=== PATIENT | female | born 1955 | race Caucasian/White ===

== ENCOUNTER → 2017-05-29 | Outpatient (CLI) | payer OTHER ==
[~2017-05-29] MED LIST: ATOR-14 PO; BUPR10DI TOP; CALCTAB5 PO; CHOL100027 PO; CYM60 PO; DULO1CAP40 PO; ESTR0.3T PO; HYDR-5688 PO; LPT10 PO; MIRT15TA PO; MULT-240 PO; NORT10CA4 PO; ONDA4TAB46 PO; PARO30TA PO; PARO40TA3 PO; PREG1CAP28 PO; PREG75CA PO; PRT/20 PO; TRAZ100T29 PO; [UNRECOGNIZED DRUG - CODE]
[2017-05-29 12:08] LABS: HEMATOCRIT 36.8 % (37-47); MEAN CELL VOLUME 106.1 fL (80-100); MEAN CORPUSCULAR HEMOGLOBIN 33.7 pg (25-34); MEAN CORPUSCULAR HGB CONC 31.8 g/dl (32-36); MEAN PLATELET VOLUME 9.5 fL (7.4-10.4); PLATELET COUNT 236 K/uL (130-400); RED BLOOD COUNT 3.47 M/uL (4.2-5.4); WHITE BLOOD COUNT 5.94 K/uL (4.8-10.8)
[2017-05-29 13:12] LABS: BLOOD UREA NITROGEN 7 mg/dl (7-18); BUN/CREATININE RATIO 8.6 (10-20); CALCIUM 8.9 mg/dl (8.5-10.1); CARBON DIOXIDE 31 mmol/L (21-32); CHLORIDE 106 mmol/L (98-107); CREATININE 0.87 mg/dl (0.60-1.20); GLUCOSE 87 mg/dl (70-99); POTASSIUM 3.8 mmol/L (3.5-5.1); SODIUM 142 mmol/L (136-145)
[2017-05-29 13:15] LABS: ALB/GLOB RATIO 1.1 (0.9-2); ALKALINE PHOSPHATASE 75 U/L (45-117); ALT/SGPT 20 U/L (12-78); AST/SGOT 20 U/L (15-37)
== END | disposition home or self-care (01) ==
LOC: C.LABPBG 09:52
PROVIDERS: ATTEND Internal Medicine
DX: D64.9 Anemia, unspecified (principal); R10.84 Generalized abdominal pain

== ENCOUNTER 2017-07-17 14:48 | Emergency (ER) | payer OTHER ==
[~2017-07-17] VITALS: Ht 162.6 cm; Wt 46.6 kg
[~2017-07-17 14:48] MED LIST changes: -BUPR10DI TOP; -CYM60 PO; -DULO1CAP40 PO; -HYDR-5688 PO; -LPT10 PO; -MULT-240 PO; -NORT10CA4 PO; -ONDA4TAB46 PO; -PREG1CAP28 PO; -TRAZ100T29 PO; -[UNRECOGNIZED DRUG - CODE]
[2017-07-17 14:56] VITALS: Ht 162.6 cm; Wt 46.6 kg
[2017-07-17] MEDS ORDERED: PREG1CAP28 PO (15:16)
[2017-07-17] MEDS ORDERED: BUPR10DI TOP (15:33)
[2017-07-17] MEDS ORDERED: LPT10 PO (15:33)
[2017-07-17] MEDS ORDERED: DULO1CAP40 PO (15:33)
[2017-07-17] MEDS ORDERED: TRAZ100T29 PO ×2 (15:33)
[2017-07-17] MEDS ORDERED: [UNRECOGNIZED DRUG - CODE] (15:33)
[2017-07-17] MEDS ORDERED: NORT10CA4 PO (15:33)
[2017-07-17] MEDS ORDERED: MULT-240 PO (15:33)
[2017-07-17] MEDS ORDERED: HYDR-5688 PO (15:33)
[2017-07-17] MEDS ORDERED: CYM60 PO (15:33)
--- NOTE | 2017-07-17 16:16 | EMERGENCY ROOM VISIT NOTE ---
History First contact with patient: 15:31 Chief Complaint: DIZZY Stated Complaint: ABDOMINAL PAIN Nursing Triage Summary: no change in dizziness with position change. Nausea is worse with movement. Has been going on for a day History of Present Illness The patient is a 61 year old female who presents to the Emergency Room with complaints of nausea and dizziness for since yesterday evening. The patient states that she felt very unsteady and was unable to walk down the hallway last night and could barely stand to brush her teeth today. She has had a decreased appetite "for a while" with decreased intake. She also vomited in bed 2 nights ago. She initially attributed these symptoms to her severe reflux for which she is taking Prilosec and Pepcid. She has a history of multiple abdominal surgeries including colectomy 2/2 ischemic bowel, appendectomy, and hysterectomy. The patient denies vertigo like symptoms stating she was more lightheaded. The patient also states that she is having a headache and hot flashes. The patient has been prescribed Vicodin for her chronic abdominal pain and last month had her dosage cut in half, but she states she has been taking them as prescribed and not missed any doses. The patient also had sharp chest pain yesterday lasting a minute that was different that her reflux pain, but has also been having intermittent chest pain for the last 6 months. She also has been having burning on urination as well. Review of Systems See HPI for pertinent positives and negatives. A total of ten systems were reviewed and were otherwise negative. Past Medical/Surgical History Medical Problems: (1) Gastroparesis (2) Ischemic colitis Surgical Problems: (1) H/O left hemicolectomy (2) History of partial colectomy Family History No significant family history Social History Smoking Status: Former Smoker Marital Status: Housing Status: lives with family Current/Historical Medications Scheduled Atorvastatin (Atorvastatin Calcium), 10 MG PO HS Buprenorphine (Buprenorphine), 10 MCG TOP WK Duloxetine HCl (Duloxetine HCl), 120 MG PO QAM Duloxetine HCl (Duloxetine HCl), 60 MG PO HS Multiple Vitamins W/ Minerals (Womens One Daily), 1 TAB PO DAILY Nortriptyline HCl (Nortriptyline HCl), 10 MG PO HS Pregabalin (Lyrica), 150 MG PO AMHS Trazodone Hcl (Trazodone), 100 MG PO HS Trazodone Hcl (Trazodone), 50 MG PO AFTER SUPPER Scheduled PRN Hydrocodone/Acetaminophen 5MG/325MG ([place] 5MG/325MG), 0.5 TABLET PO Q4H PRN for Pain Miscellaneous Medications Duloxetine HCl (Bulk) (Duloxetine HCl) Physical Exam Vital Signs Date Time Temp Pulse Resp B/P (MAP) Pulse Ox O2 Delivery O2 Flow Rate FiO2 07/17/17 17:30 72 20 120/66 99 Room Air 07/17/17 16:38 36.7 103 20 117/80 99 Room Air 07/17/17 16:30 95 20 137/90 97 121/80 103 117/80 07/17/17 14:56 36.7 92 20 128/85 99 Room Air Physical Exam GENERAL: Awake, alert, well-appearing, in mild distress HENT: Normocephalic, atraumatic. Mouth appears to be dry. EYES: Normal conjunctiva. Sclera non-icteric. NECK: Supple. No nuchal rigidity. FROM. No JVD. RESPIRATORY: Clear to auscultation. CARDIAC: Regular rate, normal rhythm. Extremities warm and well perfused. Pulses equal. ABDOMEN: Soft, non-distended. Suprapubic tenderness to palpation. No rebound or guarding. No masses. RECTAL: Deferred. MUSCULOSKELETAL: Chest examination reveals no tenderness. The back is symmetrical on inspection without obvious abnormality. There is no CVA tenderness to palpation. No joint edema. LOWER EXTREMITIES: Calves are equal size bilaterally and non-tender. No edema. No discoloration. NEURO: Depressed affect. No sensory or motor deficits noted. SKIN: No rash or jaundice noted. Medical Decision & Procedures Laboratory Results 07/17/17 16:21 Red Blood Count 3.44, Mean Corpuscular Volume 99.7, Mean Corpuscular Hemoglobin 34.0, Mean Corpuscular Hemoglobin Concent 34.1, Mean Platelet Volume 9.1, Neutrophils (%) (Auto) 74.4, Lymphocytes (%) (Auto) 20.7, Monocytes (%) (Auto) 4.1, Eosinophils (%) (Auto) 0.0, Basophils (%) (Auto) 0.4, Neutrophils # (Auto) 4.14, Lymphocytes # (Auto) 1.15, Monocytes # (Auto) 0.23, Eosinophils # (Auto) 0.00, Basophils # (Auto) 0.02 07/17/17 16:21 Test 07/17/17 16:00 07/17/17 16:21 07/17/17 17:45 07/17/17 19:15 Urine Color YELLOW Urine Appearance TURBID (CLEAR) Urine pH 8.5 (4.5-7.5) Urine Specific [place] 1.020 (1.000-1.030) Urine Protein NEG (NEG) Urine Glucose (UA) NEG (NEG) Urine Ketones NEG (NEG) Urine Occult Blood NEG (NEG) Urine Nitrite NEG (NEG) Urine Bilirubin NEG (NEG) Urine Urobilinogen NEG (NEG) Urine Leukocyte Esterase TRACE (NEG) Urine WBC (Auto) 1-5 /hpf (0-5) Urine RBC (Auto) 0-4 /hpf (0-4) Urine Hyaline Casts (Auto) 0 /lpf (0-5) Urine Epithelial Cells (Auto) 5-10 /lpf (0-5) Urine Bacteria (Auto) NEG (NEG) White Blood Count 5.56 K/uL (4.8-10.8) Red Blood Count 3.44 M/uL (4.2-5.4) Hemoglobin 11.7 g/dL (12.0-16.0) Hematocrit 34.3 % (37-47) Mean Corpuscular Volume 99.7 fL (80-100) Mean Corpuscular Hemoglobin 34.0 pg (25-34) Mean Corpuscular Hemoglobin Concent 34.1 g/dl (32-36) Platelet Count 204 K/uL (130-400) Mean Platelet Volume 9.1 fL (7.4-10.4) Neutrophils (%) (Auto) 74.4 % Lymphocytes (%) (Auto) 20.7 % Monocytes (%) (Auto) 4.1 % Eosinophils (%) (Auto) 0.0 % Basophils (%) (Auto) 0.4 % Neutrophils # (Auto) 4.14 K/uL (1.4-6.5) Lymphocytes # (Auto) 1.15 K/uL (1.2-3.4) Monocytes # (Auto) 0.23 K/uL (0.11-0.59) Eosinophils # (Auto) 0.00 K/uL (0-0.5) Basophils # (Auto) 0.02 K/uL (0-0.2) RDW Standard Deviation 41.4 fL (36.4-46.3) RDW Coefficient of Variation 11.6 % (11.5-14.5) Immature Granulocyte % (Auto) 0.4 % Immature Granulocyte # (Auto) 0.02 K/uL (0.00-0.02) Anion Gap 9.0 mmol/L (3-11) Est Creatinine Clear Calc Drug Dose 68.8 ml/min Estimated GFR () 112.4 Estimated GFR (Non- 97.0 BUN/Creatinine Ratio 14.2 (10-20) Calcium Level 9.2 mg/dl (8.5-10.1) Total Bilirubin 0.4 mg/dl (0.2-1) Aspartate Amino Transf (AST/SGOT) 15 U/L (15-37) Alanine Aminotransferase (ALT/SGPT) 12 U/L (12-78) Alkaline Phosphatase 71 U/L (45-117) Total Protein 6.7 gm/dl (6.4-8.2) Albumin 3.6 gm/dl (3.4-5.0) Globulin 3.1 gm/dl (2.5-4.0) Albumin/Globulin Ratio 1.2 (0.9-2) Lyme Disease IgG Antibody NEG (NEG) Lyme Disease IgM Antibody NEG (NEG) Prothrombin Time 10.8 SECONDS (9.0-12.0) Prothromb Time International Ratio 1.0 (0.9-1.1) Activated Partial Thromboplast Time 28.1 SECONDS (21.0-31.0) Partial Thromboplastin Ratio 1.1 D-Dimer 330 ug/L FEU (0-500) Bedside Troponin I < 0.030 ng/ml (0-0.045) Medications Administered Medications (Trade) Dose Ordered Sig/Dereck Route Start Time Stop Time Status Last Admin Dose Admin Sodium Chloride 500 ml @ 999 mls/hr Q31M STAT IV 07/17/17 16:19 07/17/17 16:49 DC 07/17/17 16:38 999 MLS/HR Ondansetron HCl (Zofran Inj) 4 mg NOW STAT IV 07/17/17 16:19 07/17/17 16:22 DC 07/17/17 16:38 4 MG Sodium Chloride 500 ml @ 999 mls/hr Q31M IV 07/17/17 17:00 08/16/17 16:59 07/17/17 17:00 999 MLS/HR ED Course Patient examined at bedside and provided very broad history including burning on urination, nausea, vomiting, chest pain, dizziness, and hot flashes Medications: Zofran 4mg IV, 1L NS Bolus Labs: CBC, CMP, Troponin, EKG, Urinalysis, D-Dimer - Patient states nausea has slightly improved with Zofran - Lab work shows no significant abnormalities - Troponin initial and repeat negative - EKG shows NSR with no ST changes - Lyme negative - Discussed negative labwork and patient agreeable with discharge home with Zofran and follow up with PCP Medical Decision Patient is a 61 year old female that presents with a 1 day history of nausea and dizziness Etiologies such as benign positional vertigo, tumor, infection, hypoglycemia, electrolyte abnormalities, cardiac sources, intracerebral event, toxicologic, neurologic, as well as others were entertained. [place] Drug Monitoring Program Search Results: patient reviewed within database Impression Primary Impression: Nausea Additional Impression: History of partial colectomy Departure Information Dispostion Home / Self-Care Condition GOOD Prescriptions Ondansetron Hcl (ZOFRAN) 4 Mg Tab 4 MG PO Q8H Y for Nausea for 4 Days, #12 TAB Prov: Henry King MD 07/17/17 Referrals Sonja Conroy M.D. (PCP) Patient Instructions My [facility] Additional Instructions Zofran Tablets 4mg: Take one every eight hours as needed for nausea. Avoid alcohol, operating machinery or dangerous equipment, working on ladders or roofs , DRIVING, or situations where being under the influence may be dangerous. Rest and drink plenty of fluids as tolerated. Slow sips of water or sports drinks are recommended instead of large amounts all at once. Continue current medications. Once your stomach is settled start with a clear liquid diet (jello, soup broth, etc.) and then advance as tolerated. You should avoid full, heavy meals for about 24 hrs from the time your symptoms resolved. Return to the ER immediately for worsening or persistent abdominal pain, vomiting, fevers, chest pains, difficulty breathing, black or bloody stools, worsening of your condition, or as needed. Follow up with your primary physician in 2-3 days for a recheck of your current condition. Resident Tracking Resident Involvement: Resident Care Provided Care Provided: Adult ED Resident Tracking Resident Involvement: Resident Care Provided Care Provided: Adult ED Problem Qualifiers
[2017-07-17] MEDS ORDERED: ONDANSETRON INJ 2 MG/ML 2 ML VIAL IV STA (16:19)
[2017-07-17] MEDS ORDERED: SODIUM CHLORIDE 0.9% 500ML 500 ML IV STA (16:19)
[2017-07-17] MEDS ORDERED: MECLIZINE HCL 25 MG TAB PO STA (16:19)
[2017-07-17 16:36] LABS: BASO % 0.4 %; BASO ABS # 0.02 K/uL (0-0.2); COMPLETE YES; HEMATOCRIT 34.3 % (37-47); IG% 0.4 %; LYMPH % 20.7 %; LYMPH ABS # 1.15 K/uL (1.2-3.4); MEAN CELL VOLUME 99.7 fL (80-100); MEAN CORPUSCULAR HGB CONC 34.1 g/dl (32-36); MEAN PLATELET VOLUME 9.1 fL (7.4-10.4); MONO % 4.1 %; NEUT % 74.4 %; PLATELET COUNT 204 K/uL (130-400); RED BLOOD COUNT 3.44 M/uL (4.2-5.4); WHITE BLOOD COUNT 5.56 K/uL (4.8-10.8)
[2017-07-17 16:38] VITALS: TEMP 36.7
[2017-07-17 16:51] LABS: URINE APPEARANCE TURBID (CLEAR); URINE BILIRUBIN NEG (NEG); URINE COLOR YELLOW; URINE NITRITE NEG (NEG); URINE PH 8.5 (4.5-7.5); UROBILINOGEN NEG (NEG)
[2017-07-17 16:52] LABS: MANUAL MICROSCOPIC REQUIRED? NO; REVIEW REQ? NO
[2017-07-17 16:53] LABS: BUN/CREATININE RATIO 14.2 (10-20); CALCIUM 9.2 mg/dl (8.5-10.1); CREATININE 0.64 mg/dl (0.60-1.20); POTASSIUM 3.6 mmol/L (3.5-5.1)
[2017-07-17 16:56] LABS: ALB/GLOB RATIO 1.2 (0.9-2)
[2017-07-17] MEDS: SODIUM CHLORIDE 0.9% 500ML 500 ML IV SCH ×2 (17:00→20:02)
[2017-07-17 18:08] LABS: PARTIAL THROMBOPLASTIN RATIO 1.1; PROTHROMBIN TIME (PATIENT) 10.8 SECONDS (9.0-12.0)
--- NOTE | 2017-07-17 19:03 | DIAGNOSTIC IMAGING REPORT ---
CHEST 2 VIEWS ROUTINE CLINICAL HISTORY: Shortness of breath. Possible pneumonia COMPARISON STUDY: 09/07/2014 FINDINGS: There is hyperinflation. There is no focal pulmonary consolidation. There are no pleural effusions. There is no failure.[ IMPRESSION: Hyperinflation. No acute findings. Electronically signed by: Xavier Estevez M.D. 07/17/2017 7:02 PM Dictated Date/Time: 07/17/2017 7:01 PM
[2017-07-17 20:11] LABS: LYME DISEASE AB IGM NEG (NEG)
[2017-07-17 20:12] LABS: LYME DISEASE AB IGG NEG (NEG)
[2017-07-17] MEDS ORDERED: ONDA4TAB46 PO (20:23)
[2017-07-17] MEDS ORDERED: ONDANSETRON HOME PACK 4MG OD TAB ONE (20:52)
[2017-07-17 21:00] VITALS: BP 122/78; PULSE 70; O2SAT 98
--- NOTE | 2017-07-17 22:15 | EMERGENCY ROOM VISIT NOTE ---
History Report prepared by Timmy: Camilo Briggs Under the Supervision of: Dr. Justo Evangelista M.D. First contact with patient: 15:31 Chief Complaint: DIZZY Stated Complaint: ABDOMINAL PAIN Nursing Triage Summary: no change in dizziness with position change. Nausea is worse with movement. Has been going on for a day History of Present Illness The patient is a 61 year old female who presents to the Emergency Room with complaints of constant dizziness and nausea beginning yesterday. She currently rates her discomfort an 8/10 in severity and standing intensifies her symptoms. The patient states she experienced an episode of vomiting two days ago, and she believed it was her GERD. She reports she has not vomited since, and she was short of breath for a short period after. She otherwise has had no shortness of breath. The patient states over the past two days, she has only eaten a little macaroni and cheese. She ate nothing today. She reports this morning, she developed mild pain with urination, periumbilical abdominal pain, and chills throughout. She does have chronic abdominal pain from adhesions from her multiple surgeries. The patient notes she has been experiencing occasional chest pain for the past six months, and she had another episode this morning. She describes it as very brief and sharp in nature with no associated symptoms. She reports she currently has a headache, but she occasionally gets them from her neck and back problems. The patient reports a history of chronic abdominal pain, appendectomy, hysterectomy, GERD, and depression. She denies vertigo, black stool, blood in stool, leg pain, and leg edema. Source of History: patient Onset: yesterday Position: other (global) Symptom Intensity: 8/10 Quality: other (dizziness and nausea) Timing: constant Modifying Factors (Worsening): other (standing) Associated Symptoms: + chest pain, + SOB (resolved), + vomiting, + abdominal pain (periumbilical), No melena, No hematochezia Note: Associated symptoms: mild dysuria Denies: vertigo, leg pain, leg edema Review of Systems See HPI for pertinent positives & negatives. A total of 10 systems reviewed and were otherwise negative. Past Medical & Surgical Medical Problems: (1) Gastroparesis (2) Ischemic colitis Surgical Problems: (1) H/O left hemicolectomy (2) History of partial colectomy Family History No significant family history Social History Smoking Status: Former Smoker Marital Status: Housing Status: lives with family Current/Historical Medications Scheduled Atorvastatin (Atorvastatin Calcium), 10 MG PO HS Buprenorphine (Buprenorphine), 10 MCG TOP WK Duloxetine HCl (Duloxetine HCl), 120 MG PO QAM Duloxetine HCl (Duloxetine HCl), 60 MG PO HS Multiple Vitamins W/ Minerals (Womens One Daily), 1 TAB PO DAILY Nortriptyline HCl (Nortriptyline HCl), 10 MG PO HS Pregabalin (Lyrica), 150 MG PO AMHS Trazodone Hcl (Trazodone), 100 MG PO HS Trazodone Hcl (Trazodone), 50 MG PO AFTER SUPPER Scheduled PRN Hydrocodone/Acetaminophen 5MG/325MG ([place] 5MG/325MG), 0.5 TABLET PO Q4H PRN for Pain Ondansetron Hcl (Zofran), 4 MG PO Q8H PRN for Nausea Miscellaneous Medications Duloxetine HCl (Bulk) (Duloxetine HCl) Allergies Coded Allergies: Sulfa Drugs (Verified Allergy, Mild, RASH, 09/12/13) Citalopram (Verified Adverse Reaction, Unknown, rash, 07/17/17) Physical Exam Vital Signs Date Time Temp Pulse Resp B/P (MAP) Pulse Ox O2 Delivery O2 Flow Rate FiO2 07/17/17 21:00 70 18 122/78 98 07/17/17 20:30 68 18 116/67 99 Room Air 07/17/17 19:30 76 20 122/70 99 Room Air 07/17/17 18:30 68 18 116/76 99 Room Air 07/17/17 17:30 72 20 120/66 99 Room Air 07/17/17 16:38 36.7 103 20 117/80 99 Room Air 07/17/17 16:30 95 20 137/90 97 121/80 103 117/80 07/17/17 14:56 36.7 92 20 128/85 99 Room Air Physical Exam Constitutional: Vital signs reviewed. Eyes: Pupils are equal round reactive to light. Conjunctiva are noninjected. ENT: Pharynx is clear without erythema or exudate. Mucous membranes are dry. Neck supple without meningeal signs. Respiratory: Clear to auscultation bilaterally. Breath sounds are equal bilaterally. Cardiovascular: Regular rate and rhythm. No rubs or gallops. GI: Soft, nondistended and mild lower abdominal tenderness. No guarding. Bowel sounds are present. Musculoskeletal: No peripheral edema. No lower extremity tenderness. Integumentary: No cyanosis. Neurologic: The patient is awake and alert. Cranial nerves II-XII are intact. Motor is 5 out of 5 all extremities. Sensation is intact to light touch all extremities. Normal speech. Psychiatric: Normal affect. Medical Decision & Procedures ER Provider Diagnostic Interpretation: X-ray results as stated below per interpretation by me and the radiologist: CHEST 2 VIEWS ROUTINE CLINICAL HISTORY: Shortness of breath. Possible pneumonia COMPARISON STUDY: 09/07/2014 FINDINGS: There is hyperinflation. There is no focal pulmonary consolidation. There are no pleural effusions. There is no failure.[ IMPRESSION: Hyperinflation. No acute findings. Electronically signed by: Xavier Estevez M.D. 07/17/2017 7:02 PM Dictated Date/Time: 07/17/2017 7:01 PM Laboratory Results 07/17/17 16:21 Red Blood Count 3.44, Mean Corpuscular Volume 99.7, Mean Corpuscular Hemoglobin 34.0, Mean Corpuscular Hemoglobin Concent 34.1, Mean Platelet Volume 9.1, Neutrophils (%) (Auto) 74.4, Lymphocytes (%) (Auto) 20.7, Monocytes (%) (Auto) 4.1, Eosinophils (%) (Auto) 0.0, Basophils (%) (Auto) 0.4, Neutrophils # (Auto) 4.14, Lymphocytes # (Auto) 1.15, Monocytes # (Auto) 0.23, Eosinophils # (Auto) 0.00, Basophils # (Auto) 0.02 07/17/17 16:21 Test 07/17/17 16:00 07/17/17 16:21 07/17/17 17:45 07/17/17 19:15 Urine Color YELLOW Urine Appearance TURBID (CLEAR) Urine pH 8.5 (4.5-7.5) Urine Specific [place] 1.020 (1.000-1.030) Urine Protein NEG (NEG) Urine Glucose (UA) NEG (NEG) Urine Ketones NEG (NEG) Urine Occult Blood NEG (NEG) Urine Nitrite NEG (NEG) Urine Bilirubin NEG (NEG) Urine Urobilinogen NEG (NEG) Urine Leukocyte Esterase TRACE (NEG) Urine WBC (Auto) 1-5 /hpf (0-5) Urine RBC (Auto) 0-4 /hpf (0-4) Urine Hyaline Casts (Auto) 0 /lpf (0-5) Urine Epithelial Cells (Auto) 5-10 /lpf (0-5) Urine Bacteria (Auto) NEG (NEG) White Blood Count 5.56 K/uL (4.8-10.8) Red Blood Count 3.44 M/uL (4.2-5.4) Hemoglobin 11.7 g/dL (12.0-16.0) Hematocrit 34.3 % (37-47) Mean Corpuscular Volume 99.7 fL (80-100) Mean Corpuscular Hemoglobin 34.0 pg (25-34) Mean Corpuscular Hemoglobin Concent 34.1 g/dl (32-36) Platelet Count 204 K/uL (130-400) Mean Platelet Volume 9.1 fL (7.4-10.4) Neutrophils (%) (Auto) 74.4 % Lymphocytes (%) (Auto) 20.7 % Monocytes (%) (Auto) 4.1 % Eosinophils (%) (Auto) 0.0 % Basophils (%) (Auto) 0.4 % Neutrophils # (Auto) 4.14 K/uL (1.4-6.5) Lymphocytes # (Auto) 1.15 K/uL (1.2-3.4) Monocytes # (Auto) 0.23 K/uL (0.11-0.59) Eosinophils # (Auto) 0.00 K/uL (0-0.5) Basophils # (Auto) 0.02 K/uL (0-0.2) RDW Standard Deviation 41.4 fL (36.4-46.3) RDW Coefficient of Variation 11.6 % (11.5-14.5) Immature Granulocyte % (Auto) 0.4 % Immature Granulocyte # (Auto) 0.02 K/uL (0.00-0.02) Anion Gap 9.0 mmol/L (3-11) Est Creatinine Clear Calc Drug Dose 68.8 ml/min Estimated GFR () 112.4 Estimated GFR (Non- 97.0 BUN/Creatinine Ratio 14.2 (10-20) Calcium Level 9.2 mg/dl (8.5-10.1) Total Bilirubin 0.4 mg/dl (0.2-1) Aspartate Amino Transf (AST/SGOT) 15 U/L (15-37) Alanine Aminotransferase (ALT/SGPT) 12 U/L (12-78) Alkaline Phosphatase 71 U/L (45-117) Total Protein 6.7 gm/dl (6.4-8.2) Albumin 3.6 gm/dl (3.4-5.0) Globulin 3.1 gm/dl (2.5-4.0) Albumin/Globulin Ratio 1.2 (0.9-2) Lyme Disease IgG Antibody NEG (NEG) Lyme Disease IgM Antibody NEG (NEG) Prothrombin Time 10.8 SECONDS (9.0-12.0) Prothromb Time International Ratio 1.0 (0.9-1.1) Activated Partial Thromboplast Time 28.1 SECONDS (21.0-31.0) Partial Thromboplastin Ratio 1.1 D-Dimer 330 ug/L FEU (0-500) Bedside Troponin I < 0.030 ng/ml (0-0.045) Laboratory results as reviewed by me. Medications Administered Medications (Trade) Dose Ordered Sig/Dereck Route Start Time Stop Time Status Last Admin Dose Admin Sodium Chloride 500 ml @ 999 mls/hr Q31M STAT IV 07/17/17 16:19 07/17/17 16:49 DC 07/17/17 16:38 999 MLS/HR Ondansetron HCl (Zofran Inj) 4 mg NOW STAT IV 07/17/17 16:19 07/17/17 16:22 DC 07/17/17 16:38 4 MG Sodium Chloride 500 ml @ 999 mls/hr Q31M IV 07/17/17 17:00 07/17/17 21:34 DC 07/17/17 17:00 999 MLS/HR Ondansetron HCl (ZOFRAN ODT 4MG Home Pack) 1 homepack STK-MED ONCE .ROUTE 07/17/17 20:52 07/17/17 20:53 DC 07/17/17 20:54 1 HOMEPACK ECG Indication: nausea Rate (beats per minute): 88 Rhythm: normal sinus Findings: no acute ischemic change, no ectopy ED Course 1534: The patient was evaluated in room B12B by the resident under my supervision. A complete history and physical exam was performed. 1619: Ordered Meclizine HCl 25mg PO, Ondansetron HCl 4mg IV, Sodium Chloride 500 ml @ 999 mls/hr IV. 1901: The patient's initial troponin is 0.00, another is being drawn. I discussed the patient's current test results with her. 2051: Ordered Ondansetron HCl 1 homepack .ROUTE 2052: Upon reevaluation, the patient appeared to have improvement of her symptoms. I discussed tonight's findings with her. She verbalized agreement of the treatment plan. The patient was discharged home. Medical Decision This is a 61-year-old female presents with lightheadedness. Differential diagnosis includes dehydration, malnutrition, anemia, infection, UTI, cardiac. I did perform a limited focused review of portions of the patient's old chart on the electronic medical record. The patient has had no recent pertinent visits to this hospital. I did evaluate the patient as noted above. The patient is presenting with generalized symptoms including increased fatigue over the past 2 months. She has been lightheaded for the past 2 days but states that she has barely been eating or drinking very much over the past 2 days. She did have one episode of vomiting. She does have chronic abdominal pain which is unchanged other than having some suprapubic pain. She also complains of dysuria as well as a fleeting episode of chest pain. She has had intermittent chest pain for several months which has never been mentioned to her doctor. Currently she is not having any chest pain. Her main complaint today is just feeling lightheaded. She is not short of breath. IV access was established. The patient was placed on a continuous groundwater monitoring technician. I did order and personally review the patient's 12-lead EKG and chest x-ray as described above. I did order and review the patient's blood work as noted in the electronic medical record. She is anemic but her hemoglobin is stable. Troponin 2 is negative. D-dimer is negative. Lyme testing is negative. I did order a urinalysis which does not show signs of infection. The patient was treated with IV fluids here. The cause of her symptoms is unclear at this time. She was advised follow very closely with her doctor for further evaluation. She does have an appointment in 2 weeks but was told that she should call for an earlier appointment. She was discharged in good condition. Resident Physician Supervision Note: I did evaluate and examine this patient myself. I did guide management for the patient. I agree with the resident's (Dr. King) assessment as discussed. Please see the resident's dictation for further details. Medication Reconcilliation Current Medication List: was personally reviewed by me Blood Pressure Screening Patient's blood pressure: Elevated blood pressure Blood pressure disposition: Referred to PCP Impression Primary Impression: Generalized weakness Additional Impressions: Chronic chest pain Chronic generalized abdominal pain Dehydration Anemia Scribe Attestation The scribe's documentation has been prepared under my direct and personally reviewed by me in its entirety. I confirm that the note above accurately reflects all work, treatment, procedures, and medical decision making performed by me. Departure Information Dispostion Home / Self-Care Prescriptions Ondansetron Hcl (ZOFRAN) 4 Mg Tab 4 MG PO Q8H Y for Nausea for 4 Days, #12 TAB Prov: Henry King MD 07/17/17 Referrals Sonja Conroy M.D. (PCP) Forms HOME CARE DOCUMENTATION FORM, IMPORTANT VISIT INFORMATION Patient Instructions My [facility] Additional Instructions Zofran Tablets 4mg: Take one every eight hours as needed for nausea. Avoid alcohol, operating machinery or dangerous equipment, working on ladders or roofs , DRIVING, or situations where being under the influence may be dangerous. Rest and drink plenty of fluids as tolerated. Slow sips of water or sports drinks are recommended instead of large amounts all at once. Continue current medications. Once your stomach is settled start with a clear liquid diet (jello, soup broth, etc.) and then advance as tolerated. You should avoid full, heavy meals for about 24 hrs from the time your symptoms resolved. Return to the ER immediately for worsening or persistent abdominal pain, vomiting, fevers, chest pains, difficulty breathing, black or bloody stools, worsening of your condition, or as needed. Follow up with your primary physician in 2-3 days for a recheck of your current condition. Problem Qualifiers Additional Impressions: Anemia Anemia type: unspecified type Qualified Codes: D64.9 - Anemia, unspecified
== END 2017-07-17 21:00 | disposition home or self-care (01) ==
LOC: EDBD 14:48 → C.EDB 14:50
DX: R11.0 Nausea (principal); Z90.49 Acquired absence of other specified parts of digestive tract; K21.9 Gastro-esophageal reflux disease without esophagitis; R10.9 Unspecified abdominal pain; G89.29 Other chronic pain; K31.84 Gastroparesis; Z87.891 Personal history of nicotine dependence

== ENCOUNTER 2017-08-05 22:20 | Inpatient (IN) | payer OTHER ==
[~2017-08-05] VITALS: Ht 162.6 cm; Wt 45.2 kg
[~2017-08-05 22:20] MED LIST changes: -ATOR-14 PO; +BUPR10DI TOP; -CALCTAB5 PO; -CHOL100027 PO; +CYM60 PO; +DULO1CAP40 PO; -ESTR0.3T PO; +HYDR-5688 PO; +LPT10 PO; -MIRT15TA PO; +MULT-240 PO; +NORT10CA4 PO; -PARO30TA PO; -PARO40TA3 PO; +PREG1CAP28 PO; -PREG75CA PO; -PRT/20 PO; +TRAZ100T29 PO; +[UNRECOGNIZED DRUG - CODE]
[2017-08-05] MEDS ORDERED: ONDANSETRON INJ 2 MG/ML 2 ML VIAL IV STA (22:45)
[2017-08-05] MEDS ORDERED: SODIUM CHLORIDE 0.9% 1000ML 1,000 ML IV STA (22:45)
[2017-08-05] MEDS ORDERED: SODIUM CHLORIDE 0.9% 1000ML 1,000 ML IV ONE (22:45)
[2017-08-05] MEDS ORDERED: MoRPHine SULFATE 4 MG/ML 1 ML CARP\\VIAL IV STA ×2 (22:45→23:07)
[2017-08-05] MEDS ORDERED: OPTIRAY 320 IV PRN (23:00)
[2017-08-05 23:08] LABS: BASO % 0.2 %; BASO ABS # 0.03 K/uL (0-0.2); COMPLETE YES; EOS % 0.3 %; HEMATOCRIT 40.7 % (37-47); IG% 0.2 %; LYMPH % 10.4 %; MEAN CELL VOLUME 98.8 fL (80-100); MEAN CORPUSCULAR HEMOGLOBIN 31.8 pg (25-34); MEAN CORPUSCULAR HGB CONC 32.2 g/dl (32-36); MEAN PLATELET VOLUME 9.4 fL (7.4-10.4); NEUT % 82.9 %; PLATELET COUNT 295 K/uL (130-400); RED BLOOD COUNT 4.12 M/uL (4.2-5.4); WHITE BLOOD COUNT 12.54 K/uL (4.8-10.8)
[2017-08-05 23:17] LABS: ISTAT CREATININE 0.8 mg/dl (0.6-1.3); ISTAT HEMOGLOBIN 14.6 g/dl (12.0-16.0); ISTAT IONIZED CALCIUM 1.13 mmol/l (1.12-1.32)
[2017-08-05] MEDS ORDERED: DOCU-94 PO (23:27)
[2017-08-05] MEDS ORDERED: ONDA4TAB9 PO (23:27)
[2017-08-05 23:29] LABS: ALT/SGPT 13 U/L (12-78); AST/SGOT 13 U/L (15-37); BLOOD UREA NITROGEN 13 mg/dl (7-18); CALCIUM 9.2 mg/dl (8.5-10.1); CARBON DIOXIDE 26 mmol/L (21-32); CHLORIDE 102 mmol/L (98-107); CREATININE 0.82 mg/dl (0.60-1.20); GLUCOSE 124 mg/dl (70-99); POTASSIUM 3.8 mmol/L (3.5-5.1); SODIUM 140 mmol/L (136-145)
[2017-08-05 23:30] LABS: ALKALINE PHOSPHATASE 81 U/L (45-117)
[2017-08-06] VITALS (14 sets, daily range): BP systolic 111–134; BP diastolic 71–86; PULSE 92–108; TEMP 36.7–37.7; O2SAT 97–100; Ht 162.6 cm; Wt 45.2 kg
[2017-08-06 00:36] LABS: URINE APPEARANCE CLEAR (CLEAR); URINE BILIRUBIN NEG (NEG); URINE COLOR YELLOW; URINE NITRITE NEG (NEG); URINE PH 5.5 (4.5-7.5); URINE SPECIFIC GRAVITY > 1.045 (1.000-1.030); UROBILINOGEN NEG (NEG)
[2017-08-06 00:39] LABS: MANUAL MICROSCOPIC REQUIRED? NO; REVIEW REQ? NO
[2017-08-06] MEDS ORDERED: MoRPHine SULFATE 4 MG/ML 1 ML CARP\\VIAL IV STA (00:44)
[2017-08-06] MEDS ORDERED: HYDROmorphone INJ 1 MG/ML SYR IV PRN ×2 (01:30→07:15)
[2017-08-06] MEDS ORDERED: HYDROmorphone INJ 0.5 MG/0.5 ML SYR IV PRN (01:30)
[2017-08-06] MEDS ORDERED: ONDANSETRON INJ 2 MG/ML 2 ML VIAL IV PRN ×2 (01:30→07:15)
[2017-08-06] MEDS ORDERED: PROMETHAZINE HCL INJ 25 MG in SODIUM CHLORIDE 0.9% 50ML 50 ML IV PRN (01:30)
[2017-08-06] MEDS ORDERED: LORAZEPAM INJ 0.5 MG in SYRINGE 0.25 ML IV PRN (01:45)
--- NOTE | 2017-08-06 02:32 | EMERGENCY ROOM VISIT NOTE ---
History Report prepared by Timmy: Chuyita Clark Under the Supervision of: Dr. Joey Randolph M.D. First contact with patient: 22:39 Chief Complaint: CHEST PAIN Stated Complaint: SEVERE ABD/CHEST PAIN,SWEATING/CHILLS History of Present Illness The patient is a 61 year old female who presents to the Emergency Room with complaints of worsening abdominal pain starting yesterday morning. The patient states that the pain is under her ribs and moves to her sides. She reports that it is worse on the left side and that her abdomen seems swollen. She notes that she has had this before, but doesn't remember why. She denies taking any pain medications for the past 8 hours. The patient complains of constipation, lack of appetite, diaphoresis, and chills. The patient denies hematochezia, melena, and a fever. She notes that she was here recently for dizziness. She states that she also just had colonoscopy in May and that has had a colon resection. Source of History: patient Onset: yesterday morning Position: abdomen Quality: other (swollen) Timing: worsening Associated Symptoms: + chills, + diaphoresis, No fevers, No melena, No hematochezia Note: The patient complains of constipation and lack of appetite. Review of Systems See HPI for pertinent positives & negatives. A total of 10 systems reviewed and were otherwise negative. Past Medical & Surgical Medical Problems: (1) Bowel obstruction (2) Gastroparesis (3) Ischemic colitis Surgical Problems: (1) H/O left hemicolectomy (2) History of partial colectomy (3) S/P colon resection Old medical records were reviewed. Nurse's notes were reviewed and I agree with. Family History No significant family history Social History Smoking Status: Never Smoker Drug Use: none Marital Status: Housing Status: lives with family Current/Historical Medications Scheduled Atorvastatin (Atorvastatin Calcium), 10 MG PO HS Buprenorphine (Buprenorphine), 10 MCG TOP WK Duloxetine HCl (Duloxetine HCl), 120 MG PO QAM Duloxetine HCl (Duloxetine HCl), 60 MG PO HS Multiple Vitamins W/ Minerals (Womens One Daily), 1 TAB PO DAILY Nortriptyline HCl (Nortriptyline HCl), 10 MG PO HS Pregabalin (Lyrica), 150 MG PO AMHS Trazodone Hcl (Trazodone), 100 MG PO HS Trazodone Hcl (Trazodone), 50 MG PO AFTER SUPPER Scheduled PRN Docusate Sodium (Colace), 1 CAP PO QID PRN for Constipation Hydrocodone/Acetaminophen 5MG/325MG ([place] 5MG/325MG), 0.5 TABLET PO Q4H PRN for Pain Ondansetron (Ondansetron HCl), 4 MG PO Q8 PRN for Nausea or Vomiting Allergies Coded Allergies: Sulfa Drugs (Verified Allergy, Mild, RASH, 08/05/17) Citalopram (Verified Adverse Reaction, Unknown, rash, 08/05/17) Physical Exam Vital Signs Date Time Temp Pulse Resp B/P (MAP) Pulse Ox O2 Delivery O2 Flow Rate FiO2 08/06/17 02:07 94 16 117/83 97 Room Air 08/06/17 01:06 90 18 117/83 99 Room Air 08/05/17 23:28 93 16 127/81 100 08/05/17 22:58 100 Ambu-Bag 08/05/17 22:53 93 08/05/17 22:24 36.5 105 24 125/82 96 Room Air Physical Exam General: Non-ill appearing middle aged female writhing in pain from abdominal pain. HEENT: Normal cephalic atraumatic. Pupils are equal round and reactive to light. Sclerae anicteric. Extraocular movements are intact. Oropharynx is pink with moist mucous membranes. No swelling of the mouth lips or tongue. Neck: Supple with a midline trachea. No meningeal signs or stiffness, no JVD or bruits. No Stridor. Chest: Clear to auscultation bilaterally. No wheezes or rhonchi. No increased work of breathing. Heart: regular rate and rhythm. Abdomen: Soft nontender, mildly distended without rebound guarding or rigidity. No peritonitis. Extremities: No cyanosis clubbing or edema. No calf tenderness or assymetry Spine/Back. Non tender to palpation. No CVA tenderness Skin: Good turgor without rashes. Neurologic exam: Cranial nerves two through 12 are intact. Motor and sensation are intact and symmetrical throughout. Medical Decision & Procedures Laboratory Results 08/05/17 22:40 Red Blood Count 4.12, Mean Corpuscular Volume 98.8, Mean Corpuscular Hemoglobin 31.8, Mean Corpuscular Hemoglobin Concent 32.2, Mean Platelet Volume 9.4, Neutrophils (%) (Auto) 82.9, Lymphocytes (%) (Auto) 10.4, Monocytes (%) (Auto) 6.0, Eosinophils (%) (Auto) 0.3, Basophils (%) (Auto) 0.2, Neutrophils # (Auto) 10.39, Lymphocytes # (Auto) 1.30, Monocytes # (Auto) 0.75, Eosinophils # (Auto) 0.04, Basophils # (Auto) 0.03 08/05/17 22:40 Test 08/05/17 22:40 08/05/17 22:59 08/05/17 23:02 08/05/17 23:03 White Blood Count 12.54 K/uL (4.8-10.8) Red Blood Count 4.12 M/uL (4.2-5.4) Hemoglobin 13.1 g/dL (12.0-16.0) Hematocrit 40.7 % (37-47) Mean Corpuscular Volume 98.8 fL (80-100) Mean Corpuscular Hemoglobin 31.8 pg (25-34) Mean Corpuscular Hemoglobin Concent 32.2 g/dl (32-36) Platelet Count 295 K/uL (130-400) Mean Platelet Volume 9.4 fL (7.4-10.4) Neutrophils (%) (Auto) 82.9 % Lymphocytes (%) (Auto) 10.4 % Monocytes (%) (Auto) 6.0 % Eosinophils (%) (Auto) 0.3 % Basophils (%) (Auto) 0.2 % Neutrophils # (Auto) 10.39 K/uL (1.4-6.5) Lymphocytes # (Auto) 1.30 K/uL (1.2-3.4) Monocytes # (Auto) 0.75 K/uL (0.11-0.59) Eosinophils # (Auto) 0.04 K/uL (0-0.5) Basophils # (Auto) 0.03 K/uL (0-0.2) RDW Standard Deviation 41.2 fL (36.4-46.3) RDW Coefficient of Variation 11.6 % (11.5-14.5) Immature Granulocyte % (Auto) 0.2 % Immature Granulocyte # (Auto) 0.03 K/uL (0.00-0.02) Est Creatinine Clear Calc Drug Dose 51.4 ml/min Estimated GFR () 90.1 Estimated GFR (Non- 77.8 BUN/Creatinine Ratio 16.0 (10-20) Calcium Level 9.2 mg/dl (8.5-10.1) Total Bilirubin 0.5 mg/dl (0.2-1) Direct Bilirubin < 0.1 mg/dl (0-0.2) Aspartate Amino Transf (AST/SGOT) 13 U/L (15-37) Alanine Aminotransferase (ALT/SGPT) 13 U/L (12-78) Alkaline Phosphatase 81 U/L (45-117) Total Protein 7.5 gm/dl (6.4-8.2) Albumin 3.8 gm/dl (3.4-5.0) Lipase 62 U/L (73-393) Bedside Lactic Acid Venous 1.19 mmol/L (0.90-1.70) Bedside Troponin I 0.030 ng/ml (0-0.045) Bedside Hemoglobin 14.6 g/dl (12.0-16.0) Bedside Hematocrit 43 % (37-47) Bedside Sodium 139 mEq/L (135-144) Bedside Potassium 3.6 mEq/L (3.3-5.0) Bedside Chloride 97 mEq/L (101-112) Bedside Total CO2 26 mEq/l (24-31) Anion Gap 20.0 mmol/L (16-25) Bedside Blood Urea Nitrogen 13 mg/dl (7-18) Bedside Creatinine 0.8 mg/dl (0.6-1.3) Bedside Glucose (other) 126 mg/dl (70-99) Bedside Ionized Calcium ([place]) 1.13 mmol/l (1.12-1.32) Test 08/06/17 00:25 Urine Color YELLOW Urine Appearance CLEAR (CLEAR) Urine pH 5.5 (4.5-7.5) Urine Specific [place] > 1.045 (1.000-1.030) Urine Protein NEG (NEG) Urine Glucose (UA) NEG (NEG) Urine Ketones 2+ (NEG) Urine Occult Blood NEG (NEG) Urine Nitrite NEG (NEG) Urine Bilirubin NEG (NEG) Urine Urobilinogen NEG (NEG) Urine Leukocyte Esterase NEG (NEG) Laboratory studies as stated above per my review. Medications Administered Medications (Trade) Dose Ordered Sig/Dereck Route Start Time Stop Time Status Last Admin Dose Admin Sodium Chloride 1,000 ml @ 999 mls/hr Q1H1M STAT IV 08/05/17 22:45 08/05/17 23:45 DC 08/05/17 22:56 999 MLS/HR Sodium Chloride 1,000 ml @ 150 mls/hr Q6H40M ONCE IV 08/05/17 22:45 08/06/17 05:24 08/06/17 00:19 150 MLS/HR Morphine Sulfate (MoRPHine SULFATE INJ) 4 mg NOW STAT IV 08/05/17 22:45 08/05/17 22:49 DC 08/05/17 22:55 4 MG Ondansetron HCl (Zofran Inj) 4 mg NOW STAT IV 08/05/17 22:45 08/05/17 22:49 DC 08/05/17 22:55 4 MG Morphine Sulfate (MoRPHine SULFATE INJ) 4 mg NOW STAT IV 08/05/17 23:07 08/05/17 23:08 DC 08/05/17 23:24 4 MG Morphine Sulfate (MoRPHine SULFATE INJ) 4 mg NOW STAT IV 08/06/17 00:44 08/06/17 00:45 DC 08/06/17 01:04 4 MG Procedure Radiology results as stated below per my review and radiologist interpretation: CHEST X-RAY: Chest x-ray per my interpretation reveals no pneumothorax, failure , or infiltrate. No free air. CTA ABDOMEN & PELVIS: Comparison: CT abdomen pelvis 10/15/2014 Distended fluid-filled small bowel loops compatible with bowel obstruction with the transition point in the posterior abdomen to the right of the midline ( series 3, images 194-200). There is associated mesenteric stranding/edema and small free fluid. Possible focal wall thickening verus prominent folds noted in the left upper abdominal small bowel (image [id number]), cannot inflammatory/ infectious or ischemic etiologies. Fluid and air containing structure in the left upper abdomen appears to be contiguous with small bowel (image 3-156) (and likely represents a diverticulum) . Mild wall thickening or underdistention of the sigmoid colon, nonspecific colitis not excluded. Aorta: no aneurysm or dissection Celiac art: patent SMA: patent DEANNE: patent RT renal art: patent LT renal art: patent RT SAVANNAH: patent RT LOVE: patent RT EIA: patent RT Femoral: patent LT SAVANNAH: patent LT IIA: patent LT EIA: patent LT Femoral: patent Additional incidental findings. Radiologist: Beverley Sykes M.D. Study ready at 23:42 and initial results transmitted at 00:24. ECG Indication: abdominal pain Rate (beats per minute): 99 Rhythm: normal sinus Findings: no acute ischemic change, no ectopy Comparison ECG Date: July 17, 2017 Change: no significant change ED Course 2239: Past medical records reviewed. The patient was evaluated in room B2, and a complete history and physical examination were performed. 2245: Ordered Zofran Inj 4 mg IV, Morphine Sulfate 4 mg IV, NSS 1000 ml @ 150 mls/hr IV, NSS 1000 ml @ 999 mls/hr IV. 7: Ordered Morphine Sulfate 4 mg IV. 39: I reevaluated the patient and she is still in pain. 43: Ordered Morphine Sulfate 4 mg IV. 48: I discussed the patient's case with Dr. Perez. He is going to come evaluate the patient for further treatment. Medical Decision Differential diagnoses include bowel obstruction, acute exacerbation of chronic pain, cardiac disease, ischemic colitis, metabolic abnormality, electrolyte abnormality. This patient comes in as described above. She has had abdominal pain she has an extensive surgical abdominal history . she's had a hemicolectomy as well as appendectomy and gynecologic surgeries. She has a history of ischemic colitis remotely. The pain got worse today and her abdomen appears distended and diffusely tender without peritonitis. She's had no fever. She appears very uncomfortable and she's been sweaty. IV access was established was hydrated normal saline. She was given morphine 4 mg IV and Zofran 4 mg IV. She did require additional doses of IV morphine while she was here and seemed much more comfortable. Her white count is mildly elevated at 12. She has no significant electrolyte or metabolic abnormaliy. Because of her history, I also did a lactic acid which was normal and a stat abdominal CT/angiogram. There are no arterial abnormalities. She does have small bowel obstruction with a lead point. In light of this, I did consult Dr. Perez the surgeon on-call. He saw her in the emergency department and is going to admit her for hydration pain management and possible surgery. The patient will be admitted. Consults Time Called: 39 Consulting Physician: Dr. Perez- Surgery Returned Call: 48 I discussed the patient's case with Dr. Perez. He is going to come evaluate the patient for further treatment. Impression Primary Impression: Small bowel obstruction Additional Impression: Central abdominal pain Scribe Attestation The scribe's documentation has been prepared under my direction and personally reviewed by me in its entirety. I confirm that the note above accurately reflects all work, treatment, procedures, and medical decision making performed by me. Departure Information Dispostion Being Evaluated By Surgeon Referrals Sonja Conroy M.D. (PCP) Patient Instructions My [facility] Health Problem Qualifiers
--- NOTE | 2017-08-06 03:06 | HISTORY & PHYSICAL EXAMINATION ---
DATE OF ADMISSION: 08/05/2017 CHIEF COMPLAINT: For bowel obstruction and abdominal pain. HISTORY OF PRESENT ILLNESS: The patient is a 61-year-old female who has had multiple prior abdominal operations including colon resection and apparently small bowel perforation with adhesions and hysterectomy who presents with a longstanding weeks to months of nausea and has developed abdominal pain over the last 24-48 hours which has persisted. She has had no significant nausea or vomiting. She did have a CT angiogram in the ER which showed no evidence of significant occlusive disease but does have some dilated small bowel with a transition in the mid abdomen consistent with at least a partial small-bowel obstruction. Her white blood cell count is 12.5. Her lactic acid is 1.1, and her laboratories are otherwise relatively normal. Her history does include history of left colectomy for apparent ischemia and then abdominal operations as stated. She has no history of hypertension or diabetes. REVIEW OF SYSTEMS: See HPI. Ten other systems reviewed and negative. MEDICATIONS: She does take medications including trazodone and atorvastatin. ALLERGIES: SHE HAS AN ALLERGY TO SULFA AND CITALOPRAM. FAMILY AND SOCIAL HISTORY: Noncontributory. PHYSICAL EXAMINATION: GENERAL: She is awake and alert. She is in her bed. She does appear to have mild abdominal pain but less than admission. HEENT: Her sclerae are nonicteric. SKIN: Shows no rashes. NECK: Supple. LUNGS: Clear. HEART: Regular rate and rhythm. ABDOMEN: Mildly distended. She has decreased bowel sounds. She does have some abdominal pain to deep palpation over the mid abdomen. She does not appear to have peritoneal irritation. She has a midline incision scar. EXTREMITIES: Well perfused without edema. I did review her CAT scan. ASSESSMENT AND PLAN: A 61-year-old female with history of prior abdominal surgery, presenting with abdominal pain and evidence of at least partial small-bowel obstruction. I have discussed with the patient and her most likely she should be admitted to the hospital and we will likely proceed with surgery within the next 12-24 hours. She will most likely require bowel resection. I have discussed this with him. We will place her on antibiotics and an NG tube at the present time.
[2017-08-06] MEDS ORDERED: PIPERACILL/TAZOBAC IV 3.375 GM in DEXTROSE 5% 100ML IV ONE (03:30)
[2017-08-06] MEDS: D5NSS + 20MEQ KCL 1,000 ML IV SCH ×3 (03:52→19:01)
[2017-08-06] MEDS: LORAZEPAM INJ 0.5 MG in SYRINGE 0.25 ML IV PRN ×3 (03:53→21:28)
[2017-08-06] MEDS ORDERED: PROMETHAZINE HCL INJ 12.5 MG in SODIUM CHLORIDE 0.9% 50ML 50 ML IV PRN ×2 (04:00→07:15)
[2017-08-06] MEDS ORDERED: PIPERACILL/TAZOBAC CONSULT ACTIVE PRN (04:30)
[2017-08-06 05:06] LABS: HEMATOCRIT 32.2 % (37-47); MEAN CELL VOLUME 99.4 fL (80-100); MEAN CORPUSCULAR HEMOGLOBIN 34.3 pg (25-34); MEAN CORPUSCULAR HGB CONC 34.5 g/dl (32-36); MEAN PLATELET VOLUME 9.1 fL (7.4-10.4); PLATELET COUNT 217 K/uL (130-400); RED BLOOD COUNT 3.24 M/uL (4.2-5.4); WHITE BLOOD COUNT 8.42 K/uL (4.8-10.8)
[2017-08-06 05:28] LABS: BUN/CREATININE RATIO 17.2 (10-20); CALCIUM 7.9 mg/dl (8.5-10.1); CREATININE 0.7 mg/dl (0.60-1.20); PHOSPHORUS 3.2 mg/dl (2.5-4.9); POTASSIUM 3.8 mmol/L (3.5-5.1)
--- NOTE | 2017-08-06 05:28 | Surgery Progress Note ---
Surgery Progress Note Date of Service Aug 06, 2017. Subjective slept some- less pain clear bilious NG outpt Objective Vital Signs: Date Time Temp Pulse Resp B/P (MAP) Pulse Ox O2 Delivery O2 Flow Rate FiO2 08/06/17 02:49 37.4 94 18 134/83 97 Room Air 08/06/17 02:31 96 16 117/83 98 08/06/17 02:07 94 16 117/83 97 Room Air 08/06/17 01:06 90 18 117/83 99 Room Air 08/05/17 23:28 93 16 127/81 100 08/05/17 22:58 100 Ambu-Bag 08/05/17 22:53 93 08/05/17 22:24 36.5 105 24 125/82 96 Room Air General Appearance: no apparent distress Respiratory/Chest: no respiratory distress Abdomen: + distended Laboratory Results: Results Past 24 Hours Test 08/05/17 22:40 08/05/17 22:59 08/05/17 23:02 08/05/17 23:03 Range/Units White Blood Count 12.54 4.8-10.8 K/uL Red Blood Count 4.12 4.2-5.4 M/uL Hemoglobin 13.1 12.0-16.0 g/dL Hematocrit 40.7 37-47 % Mean Corpuscular Volume 98.8 80-100 fL Mean Corpuscular Hemoglobin 31.8 25-34 pg Mean Corpuscular Hemoglobin Concent 32.2 32-36 g/dl Platelet Count 295 130-400 K/uL Mean Platelet Volume 9.4 7.4-10.4 fL Neutrophils (%) (Auto) 82.9 % Lymphocytes (%) (Auto) 10.4 % Monocytes (%) (Auto) 6.0 % Eosinophils (%) (Auto) 0.3 % Basophils (%) (Auto) 0.2 % Neutrophils # (Auto) 10.39 1.4-6.5 K/uL Lymphocytes # (Auto) 1.30 1.2-3.4 K/uL Monocytes # (Auto) 0.75 0.11-0.59 K/uL Eosinophils # (Auto) 0.04 0-0.5 K/uL Basophils # (Auto) 0.03 0-0.2 K/uL RDW Standard Deviation 41.2 36.4-46.3 fL RDW Coefficient of Variation 11.6 11.5-14.5 % Immature Granulocyte % (Auto) 0.2 % Immature Granulocyte # (Auto) 0.03 0.00-0.02 K/uL Sodium Level 140 136-145 mmol/L Potassium Level 3.8 3.5-5.1 mmol/L Chloride Level 102 98-107 mmol/L Carbon Dioxide Level 26 21-32 mmol/L Anion Gap 12.0 20.0 16-25 mmol/L Blood Urea Nitrogen 13 7-18 mg/dl Creatinine 0.82 0.60-1.20 mg/dl Est Creatinine Clear Calc Drug Dose 51.4 ml/min Estimated GFR () 90.1 Estimated GFR (Non- 77.8 BUN/Creatinine Ratio 16.0 10-20 Random Glucose 124 70-99 mg/dl Calcium Level 9.2 8.5-10.1 mg/dl Total Bilirubin 0.5 0.2-1 mg/dl Direct Bilirubin < 0.1 0-0.2 mg/dl Aspartate Amino Transf (AST/SGOT) 13 15-37 U/L Alanine Aminotransferase (ALT/SGPT) 13 12-78 U/L Alkaline Phosphatase 81 45-117 U/L Total Protein 7.5 6.4-8.2 gm/dl Albumin 3.8 3.4-5.0 gm/dl Lipase 62 73-393 U/L Bedside Lactic Acid Venous 1.19 0.90-1.70 mmol/L Bedside Troponin I 0.030 0-0.045 ng/ml Bedside Hemoglobin 14.6 12.0-16.0 g/dl Bedside Hematocrit 43 37-47 % Bedside Sodium 139 135-144 mEq/L Bedside Potassium 3.6 3.3-5.0 mEq/L Bedside Chloride 97 101-112 mEq/L Bedside Total CO2 26 24-31 mEq/l Bedside Blood Urea Nitrogen 13 7-18 mg/dl Bedside Creatinine 0.8 0.6-1.3 mg/dl Bedside Glucose (other) 126 70-99 mg/dl Bedside Ionized Calcium ([place]) 1.13 1.12-1.32 mmol/l Test 08/06/17 00:25 08/06/17 04:57 Range/Units Urine Color YELLOW Urine Appearance CLEAR CLEAR Urine pH 5.5 4.5-7.5 Urine Specific [place] > 1.045 1.000-1.030 Urine Protein NEG NEG Urine Glucose (UA) NEG NEG Urine Ketones 2+ NEG Urine Occult Blood NEG NEG Urine Nitrite NEG NEG Urine Bilirubin NEG NEG Urine Urobilinogen NEG NEG Urine Leukocyte Esterase NEG NEG White Blood Count 8.42 4.8-10.8 K/uL Red Blood Count 3.24 4.2-5.4 M/uL Hemoglobin 11.1 12.0-16.0 g/dL Hematocrit 32.2 37-47 % Mean Corpuscular Volume 99.4 80-100 fL Mean Corpuscular Hemoglobin 34.3 25-34 pg Mean Corpuscular Hemoglobin Concent 34.5 32-36 g/dl RDW Standard Deviation 42.1 36.4-46.3 fL RDW Coefficient of Variation 11.7 11.5-14.5 % Platelet Count 217 130-400 K/uL Mean Platelet Volume 9.1 7.4-10.4 fL Microbiology Results 08/06/17 Urine Culture, Received Pending Assessment & Plan 08/06/17- slight improvement with NG- plan for surgery today- laparotomy, lysis of adhesions, possible bowel resection
--- NOTE | 2017-08-06 07:02 | DIAGNOSTIC IMAGING REPORT ---
CHEST ONE VIEW PORTABLE CLINICAL HISTORY: Atypical chest pain COMPARISON STUDY: 07/17/2017 FINDINGS: The cardiac and mediastinal contours are normal. There is no evidence of focal pulmonary consolidation. There is no evidence of failure. No pleural effusions are visualized.[ IMPRESSION: No active disease in the chest. Electronically signed by: Xavier Estevez M.D. 08/06/2017 7:00 AM Dictated Date/Time: 08/06/2017 7:00 AM
[2017-08-06] MEDS ORDERED: SUCCINYLCHOLINE CHLORIDE 20 MG/ML 10 ML VIAL IV ONE (07:05)
[2017-08-06] MEDS ORDERED: LIDOCAINE HCL 2% 2 ML VIAL (20MG/ML) ONE (07:05)
[2017-08-06] MEDS ORDERED: PHENYLEPHRINE HCL INJ 10 MG/ML VIAL ONE (07:05)
[2017-08-06] MEDS ORDERED: PROPOFOL IV EMULSION 10 MG/ML 20 ML VIAL IV ONE (07:05)
[2017-08-06] MEDS ORDERED: EpHEDrine SULFATE INJ 50 MG/ML AMP ONE (07:05)
[2017-08-06] MEDS ORDERED: FENTANYL CITRATE INJ 50 MCG/1 ML 2 ML VIAL ONE ×2 (07:05→10:17)
[2017-08-06] MEDS ORDERED: MIDAZOLAM HCL 1 MG/ML 2ML VIAL ONE (07:05)
[2017-08-06] MEDS ORDERED: GLYCOPYRROLATE INJ 0.2 MG/ML VIAL ONE (07:05)
[2017-08-06] MEDS ORDERED: DEXAMETHASONE SOD INJ 4 MG/ML VIAL ONE ×2 (07:05→08:42)
[2017-08-06] MEDS ORDERED: ONDANSETRON INJ 2 MG/ML 2 ML VIAL ONE ×2 (07:05→08:43)
[2017-08-06] MEDS ORDERED: NEOSTIGMINE METHYLSULFATE 5 MG/5 ML SYR ONE (07:05)
[2017-08-06] MEDS ORDERED: CEFOXITIN SOD 1 GM VIAL ONE ×2 (07:14→09:15)
[2017-08-06] MEDS ORDERED: LABETALOL HCL IV 5 MG/ML 20ML IV PRN (07:15)
[2017-08-06] MEDS ORDERED: EpHEDrine SULFATE INJ 50 MG/ML AMP IV PRN (07:15)
[2017-08-06] MEDS ORDERED: ATROPINE SULFATE 0.1 MG/ML 5ML SYR IV PRN (07:15)
[2017-08-06] MEDS ORDERED: PHENYLEPHRINE 100MCG/ML 5ML SYR IV PRN (07:15)
--- NOTE | 2017-08-06 07:30 | DIAGNOSTIC IMAGING REPORT ---
Abdomen and pelvis CTA for, AORTA PROTOCOL CT DOSE: 265.12 mGy.cm HISTORY: Generalized abdominal pain. TECHNIQUE: Multiaxial CT images of the abdomen and pelvis were performed both before and after the intravenous administration of contrast to evaluate the aorta. Maximal intensity projection images were also obtained. A dose lowering technique was utilized adhering to the principles of ALARA. COMPARISON STUDY: Abdomen and pelvis CT 10/15/2014. FINDINGS: Abdominal aorta and its major branches are widely patent with no evidence for dissection or aneurysm. The bilateral iliac arteries are normal and course and caliber with no significant stenosis. The liver, gallbladder, spleen, adrenal glands, and pancreas are unremarkable. Small bilateral renal hypodense lesions likely represent cysts. No hydronephrosis. No retroperitoneal lymphadenopathy. The bladder is unremarkable. The uterus is surgically absent. Mild pelvic floor collapse. Questionable thickening of the sigmoid colon appears to be due to underdistention. Prior partial colectomy with anastomosis. Moderate to large amount well-formed stool within the majority colon. Distended and fluid-filled stomach and possible to mid small bowel. Focal transition point within the mid right abdomen on images 198 through 200 consistent with a high-grade small bowel obstruction. The small bowel is distended up to 3.5 cm. Mild mesenteric edema. IMPRESSION: 1. Small bowel obstruction with focal transition point within the mid to distal jejunum as described above. There is mild mesenteric edema. No pneumoperitoneum or pneumatosis at this time. Surgical consultation recommended. 2. Normal caliber abdominal aorta with no evidence for dissection. Electronically signed by: Gurpreet Marcelo M.D. 08/06/2017 7:29 AM Dictated Date/Time: 08/06/2017 7:16 AM
[2017-08-06] MEDS ORDERED: INFLUENZA VIRUS QUAD VACCINE 0.5 ML SYR IM. ONE (08:00)
[2017-08-06] MEDS ORDERED: INFLUENZA ADMINISTRATION CHARGE ONE (08:00)
[2017-08-06] MEDS ORDERED: HYDROmorphone INJ 2 MG/ML SYR/VIAL ONE (08:26)
[2017-08-06] MEDS ORDERED: ROCURONIUM BROMIDE 10 MG/ML 5 ML VIAL IV ONE (08:42)
--- NOTE | 2017-08-06 09:54 | [facility] Operative Report ---
Operative Report Operative Date Aug 06, 2017. Pre-Operative Diagnosis small bowel obstruction Post-Operative Diagnosis same with adhesions and internal hernia Procedure(s) Performed laparotomy, lysis of adhesions, closure of internal hernia Surgeon Dr. Nirmal Perez Medium [employer] Salesperson Surgeon(s) Isiha Hadley PA-C Findings small bowel herniated through transverse mesentery with proximally dilated small bowel and more distal adhesions, jejunal mesenteric cyst Anesthesia gen Complication(s) None Disposition Recovery Room / PACU I attest to the content of the Intraoperative Record and any orders documented therein. Any exceptions are noted below.
--- NOTE | 2017-08-06 10:14 | OPERATIVE REPORT ---
DATE OF OPERATION: 08/06/2017 NAME OF OPERATION: Laparotomy, extensive lysis of adhesions, closure of internal hernia. PREOPERATIVE DIAGNOSIS: Small-bowel obstruction. POSTOPERATIVE DIAGNOSES: Same with adhesions and internal hernia and jejunal mesenteric cyst. STAFF SURGEON: Dr. Perez. HUMAN RESOURCES TRAINING MANAGER: Ke Hadley PA-C. ANESTHESIA: General. PROCEDURE: The patient was brought in the operating room and placed on the operating table in supine position. Zhao catheter, pneumatic stockings, nasogastric tube were in place. Her abdomen was prepped and draped in usual fashion. Incision was made from just above the umbilicus to the symphysis pubis, carrying dissection down, entering the abdominal cavity, encountering adhesions of the omentum and small-bowel to the anterior abdominal wall. Carefully, these were taken down. It was apparent that the patient had significant adhesions of the small-bowel which were mobilized away from the colon. The patient had a colorectal anastomosis from prior left colectomy. On continued dissection, it was apparent that the patient had an internal hernia through the transverse mesocolon up under the stomach with a large confluence of proximal small-bowel obstructed up in the hernia and dilated. Distal to this were multiple areas of adhesions. The small-bowel was reduced from the hernia, and then toward the end of the procedure, this hernia was closed using 2-0 chromic catgut suture which was actually tacked to the mesentery and small-bowel, closing the defect. Distal to the dilated small-bowel, there were multiple areas of severe adhesions which were lysed. I did not have to do a bowel resection in that fluid easily flowed through these areas after the lysis of adhesions. She actually had additional adhesions distally but it did not appear any were causing significant obstruction. As a note, the proximal jejunum did show an area of a mesenteric cyst of approximately 2-3 cm, which was left in place. Several areas of serosal separation were closed using interrupted 3-0 silk sutures. No enterotomies were performed. At this point, the abdomen was irrigated with antibiotic solution, then the fascia closed using interrupted and running #1 PDS suture, subcutaneous tissue was loosely reapproximated using 2-0 plain catgut suture, then the skin reapproximated using maritza with some quarter-inch Nu Gauze placed between the areas of the maritza to allow for drainage. Dressing applied and the patient transferred to recovery room in stable condition. I attest to the content of the Intraoperative Record and any orders documented therein. Any exception s are noted below.
[2017-08-06] MEDS: FENTANYL CITRATE INJ 50 MCG/1 ML 2 ML VIAL IV PRN ×2 (10:37→10:43)
--- NOTE | 2017-08-06 11:03 | Anesthesiology Progress Note ---
Anesthesia Post Op Note Date & Time Aug 06, 2017 at 11:03 Vital Signs Pain Intensity: 3 Vital Signs Past 12 Hours Date Time Temp Pulse Resp B/P (MAP) Pulse Ox O2 Delivery O2 Flow Rate FiO2 08/06/17 10:55 36.8 91 13 130/77 100 Oxymask 3 08/06/17 10:45 88 13 135/80 100 Oxymask 5 08/06/17 10:35 89 13 129/85 100 Oxymask 10 08/06/17 10:28 36.1 95 14 142/83 100 Oxymask 10 08/06/17 07:07 36.7 106 14 111/71 (84) 98 Room Air 08/06/17 02:49 37.4 94 18 134/83 97 Room Air 08/06/17 02:31 96 16 117/83 98 08/06/17 02:07 94 16 117/83 97 Room Air 08/06/17 01:06 90 18 117/83 99 Room Air 08/05/17 23:28 93 16 127/81 100 Notes Mental Status: alert / awake / arousable, participated in evaluation Pt Amnestic to Procedure: Yes Nausea / Vomiting: adequately controlled Pain: adequately controlled Airway Patency, RR, SpO2: stable & adequate BP & HR: stable & adequate Hydration State: stable & adequate Anesthetic Complications: no major complications apparent
[2017-08-06] MEDS: PANTOprazole INJ 40 MG in SYRINGE 0 ML IV SCH (11:21)
[2017-08-06] MEDS: PIPERACILL/TAZOBAC IV 3.375 GM in DEXTROSE 5% 100ML 100 ML IV SCH ×2 (11:21→17:51)
[2017-08-06 11:27] LABS: PROTHROMBIN TIME (PATIENT) 10.7 SECONDS (9.0-12.0)
--- NOTE | 2017-08-06 11:45 | Progress Note ---
Subjective Date of Service: Aug 06, 2017. Subjective Pt evaluation today including: conversation w/ patient, physical exam, chart review, lab review, review of inpatient medication list seen post op. appears to be doing well. still fairly sedated but no complaints and nursing offers no problems. charts reviewed - appears fairly uncomplicated hx medically - complicated hx appearing mostly abdominal/surgery related Problem List Medical Problems: (1) Central abdominal pain Status: Acute (2) Nausea Status: Acute (3) Small bowel obstruction Status: Acute Review of Systems ROS otherwise unobtainable except for as above Objective Vital Signs Date Time Temp Pulse Resp B/P (MAP) Pulse Ox O2 Delivery O2 Flow Rate FiO2 08/06/17 11:05 92 13 128/78 100 Oxymask 2 08/06/17 10:55 36.8 91 13 130/77 100 Oxymask 3 08/06/17 10:45 88 13 135/80 100 Oxymask 5 08/06/17 10:35 89 13 129/85 100 Oxymask 10 08/06/17 10:28 36.1 95 14 142/83 100 Oxymask 10 08/06/17 07:07 36.7 106 14 111/71 (84) 98 Room Air 08/06/17 02:49 37.4 94 18 134/83 97 Room Air 08/06/17 02:31 96 16 117/83 98 08/06/17 02:07 94 16 117/83 97 Room Air 08/06/17 01:06 90 18 117/83 99 Room Air 08/05/17 23:28 93 16 127/81 100 08/05/17 22:58 100 Ambu-Bag 08/05/17 22:53 93 08/05/17 22:24 36.5 105 24 125/82 96 Room Air Physical Exam General Appearance: no apparent distress Eyes: EOMI ENT: hearing grossly normal Neck: trachea midline Respiratory/Chest: no respiratory distress, no accessory muscle use Neurologic/Psychiatric: interior design faculty member II-XII nml as tested, alert (sedated some but able to communicate reasonably then falls asleep again) Skin: normal color Laboratory Results Last 24 Hours Test 08/05/17 22:40 08/05/17 22:59 08/05/17 23:02 08/05/17 23:03 White Blood Count 12.54 K/uL Red Blood Count 4.12 M/uL Hemoglobin 13.1 g/dL Hematocrit 40.7 % Mean Corpuscular Volume 98.8 fL Mean Corpuscular Hemoglobin 31.8 pg Mean Corpuscular Hemoglobin Concent 32.2 g/dl Platelet Count 295 K/uL Mean Platelet Volume 9.4 fL Neutrophils (%) (Auto) 82.9 % Lymphocytes (%) (Auto) 10.4 % Monocytes (%) (Auto) 6.0 % Eosinophils (%) (Auto) 0.3 % Basophils (%) (Auto) 0.2 % Neutrophils # (Auto) 10.39 K/uL Lymphocytes # (Auto) 1.30 K/uL Monocytes # (Auto) 0.75 K/uL Eosinophils # (Auto) 0.04 K/uL Basophils # (Auto) 0.03 K/uL RDW Standard Deviation 41.2 fL RDW Coefficient of Variation 11.6 % Immature Granulocyte % (Auto) 0.2 % Immature Granulocyte # (Auto) 0.03 K/uL Sodium Level 140 mmol/L Potassium Level 3.8 mmol/L Chloride Level 102 mmol/L Carbon Dioxide Level 26 mmol/L Anion Gap 12.0 mmol/L 20.0 mmol/L Blood Urea Nitrogen 13 mg/dl Creatinine 0.82 mg/dl Est Creatinine Clear Calc Drug Dose 51.4 ml/min Estimated GFR () 90.1 Estimated GFR (Non- 77.8 BUN/Creatinine Ratio 16.0 Random Glucose 124 mg/dl Calcium Level 9.2 mg/dl Total Bilirubin 0.5 mg/dl Direct Bilirubin < 0.1 mg/dl Aspartate Amino Transf (AST/SGOT) 13 U/L Alanine Aminotransferase (ALT/SGPT) 13 U/L Alkaline Phosphatase 81 U/L Total Protein 7.5 gm/dl Albumin 3.8 gm/dl Lipase 62 U/L Bedside Lactic Acid Venous 1.19 mmol/L Bedside Troponin I 0.030 ng/ml Bedside Hemoglobin 14.6 g/dl Bedside Hematocrit 43 % Bedside Sodium 139 mEq/L Bedside Potassium 3.6 mEq/L Bedside Chloride 97 mEq/L Bedside Total CO2 26 mEq/l Bedside Blood Urea Nitrogen 13 mg/dl Bedside Creatinine 0.8 mg/dl Bedside Glucose (other) 126 mg/dl Bedside Ionized Calcium ([place]) 1.13 mmol/l Test 08/06/17 00:25 08/06/17 04:57 08/06/17 06:04 08/06/17 11:01 Urine Color YELLOW Urine Appearance CLEAR Urine pH 5.5 Urine Specific [place] > 1.045 Urine Protein NEG Urine Glucose (UA) NEG Urine Ketones 2+ Urine Occult Blood NEG Urine Nitrite NEG Urine Bilirubin NEG Urine Urobilinogen NEG Urine Leukocyte Esterase NEG White Blood Count 8.42 K/uL Red Blood Count 3.24 M/uL Hemoglobin 11.1 g/dL Hematocrit 32.2 % Mean Corpuscular Volume 99.4 fL Mean Corpuscular Hemoglobin 34.3 pg Mean Corpuscular Hemoglobin Concent 34.5 g/dl RDW Standard Deviation 42.1 fL RDW Coefficient of Variation 11.7 % Platelet Count 217 K/uL Mean Platelet Volume 9.1 fL Sodium Level 142 mmol/L Potassium Level 3.8 mmol/L Chloride Level 106 mmol/L Carbon Dioxide Level 28 mmol/L Anion Gap 8.0 mmol/L Blood Urea Nitrogen 12 mg/dl Creatinine 0.70 mg/dl Est Creatinine Clear Calc Drug Dose 60.2 ml/min Estimated GFR () 109.1 Estimated GFR (Non- 94.2 BUN/Creatinine Ratio 17.2 Random Glucose 141 mg/dl Calcium Level 7.9 mg/dl Phosphorus Level 3.2 mg/dl Magnesium Level 2.0 mg/dl Hepatitis C Antibody Screen NEG Lactic Acid Level 0.8 mmol/L Prothrombin Time 10.7 SECONDS Prothromb Time International Ratio 1.0 Activated Partial Thromboplast Time 26.6 SECONDS Partial Thromboplastin Ratio 1.0 Assessment and Plan abdominal pain / adhesional pathology -post op -appearing stable -continue to follow anxiety / ?chronic abdominal pain -on review of meds appears on meds for both - will discuss w pt more when she's more awake -continue home meds once able to take PO hyperlipid -continue home meds once able to take PO DVT proph -heparin SQ
[2017-08-06] MEDS: HEPARIN SOD 5000 UNIT/0.5 ML CARP SQ SCH ×2 (12:39→19:38)
[2017-08-06] MEDS: SODIUM CHLORIDE 0.9% 1000ML 1,000 ML IV SCH (15:02)
[2017-08-06] MEDS ORDERED: NALOXONE HCL 0.4 MG/1 ML VIAL/CARP IV PRN (15:15)
[2017-08-06] MEDS: HYDROmorphone HCL 0.5MG/ML 50 ML CASSETTE IV PRN ×2 (15:50→22:52)
[2017-08-06] MEDS: ACETAMINOPHEN IV 1,000 MG in EMPTY BAG 0 ML IV SCH ×2 (16:39→23:40)
[2017-08-07] VITALS (8 sets, daily range): BP systolic 118–141; BP diastolic 69–88; PULSE 88–115; TEMP 36.8–37.3; O2SAT 94–97
[2017-08-07] MEDS: PIPERACILL/TAZOBAC IV 3.375 GM in DEXTROSE 5% 100ML 100 ML IV SCH ×3 (01:36→19:20)
[2017-08-07] MEDS: D5NSS + 20MEQ KCL 1,000 ML IV SCH ×3 (02:37→22:27)
[2017-08-07 05:09] LABS: MEAN CELL VOLUME 99.7 fL (80-100); MEAN CORPUSCULAR HEMOGLOBIN 32.8 pg (25-34); MEAN CORPUSCULAR HGB CONC 32.9 g/dl (32-36); PLATELET COUNT 221 K/uL (130-400); RED BLOOD COUNT 3.41 M/uL (4.2-5.4); WHITE BLOOD COUNT 5.28 K/uL (4.8-10.8)
[2017-08-07 05:52] LABS: BUN/CREATININE RATIO 9.3 (10-20); CALCIUM 7.6 mg/dl (8.5-10.1); CREATININE 0.74 mg/dl (0.60-1.20); MAGNESIUM 1.6 mg/dl (1.8-2.4); PHOSPHORUS 1.9 mg/dl (2.5-4.9); POTASSIUM 3.9 mmol/L (3.5-5.1)
--- NOTE | 2017-08-07 06:23 | Surgery Progress Note ---
Surgery Progress Note Date of Service Aug 07, 2017. Subjective Pain- on chronic Vicodin at home vitals stable- low grd fever Objective Vital Signs: Date Time Temp Pulse Resp B/P (MAP) Pulse Ox O2 Delivery O2 Flow Rate FiO2 08/07/17 03:18 36.8 99 14 120/73 (89) 96 Room Air 08/06/17 23:30 Room Air 08/06/17 22:52 37.7 108 14 134/79 (97) 98 Room Air 08/06/17 20:54 97 Room Air 08/06/17 19:20 37.6 100 16 119/76 (90) 100 Oxymask 4.0 08/06/17 18:05 37.5 104 16 112/76 (88) 100 Oxymask 4.0 08/06/17 17:02 37.5 95 16 121/77 (92) 100 Oxymask 4.0 08/06/17 16:00 37.2 100 16 130/78 (95) 99 Oxymask 4.0 08/06/17 16:00 37.5 103 16 129/81 (97) 100 Oxymask 4.0 08/06/17 15:29 37.5 93 16 126/77 (93) 100 Oxymask 4.0 08/06/17 15:20 Oxymask 3.0 08/06/17 14:15 37.0 99 16 129/86 (100) 100 Nasal Cannula 4.0 08/06/17 13:14 37.2 95 16 122/78 (93) 100 Oxymask 3.0 08/06/17 12:22 Oxymask 3.0 08/06/17 12:14 37.4 104 16 117/78 (91) 99 Nasal Cannula 3.0 08/06/17 11:47 37.2 92 16 121/76 (91) 100 Oxymask 3.0 08/06/17 11:15 Oxymask 2.0 08/06/17 11:15 37.2 102 16 117/73 (88) 98 Oxymask 2.0 08/06/17 11:05 92 13 128/78 100 Oxymask 2 08/06/17 10:55 36.8 91 13 130/77 100 Oxymask 3 08/06/17 10:45 88 13 135/80 100 Oxymask 5 08/06/17 10:35 89 13 129/85 100 Oxymask 10 08/06/17 10:28 36.1 95 14 142/83 100 Oxymask 10 08/06/17 07:07 36.7 106 14 111/71 (84) 98 Room Air General Appearance: + mild distress Respiratory/Chest: no respiratory distress Abdomen: + distended (not rigid) Incision(s): intact Laboratory Results: Results Past 24 Hours Test 08/06/17 11:01 08/07/17 04:58 Range/Units Prothrombin Time 10.7 9.0-12.0 SECONDS Prothromb Time International Ratio 1.0 0.9-1.1 Activated Partial Thromboplast Time 26.6 21.0-31.0 SECONDS Partial Thromboplastin Ratio 1.0 White Blood Count 5.28 4.8-10.8 K/uL Red Blood Count 3.41 4.2-5.4 M/uL Hemoglobin 11.2 12.0-16.0 g/dL Hematocrit 34.0 37-47 % Mean Corpuscular Volume 99.7 80-100 fL Mean Corpuscular Hemoglobin 32.8 25-34 pg Mean Corpuscular Hemoglobin Concent 32.9 32-36 g/dl RDW Standard Deviation 43.8 36.4-46.3 fL RDW Coefficient of Variation 12.1 11.5-14.5 % Platelet Count 221 130-400 K/uL Mean Platelet Volume 9.0 7.4-10.4 fL Sodium Level 141 136-145 mmol/L Potassium Level 3.9 3.5-5.1 mmol/L Chloride Level 109 98-107 mmol/L Carbon Dioxide Level 29 21-32 mmol/L Anion Gap 3.0 3-11 mmol/L Blood Urea Nitrogen 7 7-18 mg/dl Creatinine 0.74 0.60-1.20 mg/dl Est Creatinine Clear Calc Drug Dose 56.9 ml/min Estimated GFR () 102.1 Estimated GFR (Non- 88.1 BUN/Creatinine Ratio 9.3 10-20 Random Glucose 134 70-99 mg/dl Calcium Level 7.6 8.5-10.1 mg/dl Phosphorus Level 1.9 2.5-4.9 mg/dl Magnesium Level 1.6 1.8-2.4 mg/dl Assessment & Plan 08/07/17- s/p laparotomy, lysis of adhesions, closure internal hernia pain control difficult- on chr pain meds- ask pain mgt to help will have ileus for days likely- NPO, try to mobilize 08/06/17- slight improvement with NG- plan for surgery today- laparotomy, lysis of adhesions, possible bowel resection 08/06/17- slight improvement with NG- plan for surgery today- laparotomy, lysis of adhesions, possible bowel resection
[2017-08-07] MEDS: SODIUM CHLORIDE 0.9% 1000ML 1,000 ML IV SCH (07:00)
[2017-08-07] MEDS: HYDROmorphone HCL 0.5MG/ML 50 ML CASSETTE IV PRN ×3 (07:31→23:09)
[2017-08-07] MEDS: ACETAMINOPHEN IV 1,000 MG in EMPTY BAG 0 ML IV SCH (07:54)
[2017-08-07] MEDS: HEPARIN SOD 5000 UNIT/0.5 ML CARP SQ SCH ×2 (08:08→19:23)
[2017-08-07] MEDS ORDERED: MAGNESIUM SULFATE 1GM / D5W 2 GM in PREMIXED IN D5W 100 ML IV ONE (09:00)
--- NOTE | 2017-08-07 09:17 | Pain Management Consultation ---
Pain Management Consultation Date of Consultation Aug 07, 2017. Reason for Consultation Patient was seen on rounds this morning. She did not want to participate in being interviewed and examined at the present time. Will make attempts to see her later today or tomorrow on rounds. Family History No significant family history Social / Work History Marital Status: Allergies Coded Allergies: Sulfa Antibiotics (Verified Allergy, Mild, RASH, 08/06/17) Citalopram (Verified Adverse Reaction, Unknown, rash, 08/05/17) Medications Current Inpatient Medications Medications (Trade) Dose Ordered Sig/Dereck Route Start Time Stop Time Status Last Admin Dose Admin Ioversol (Optiray 320) 100 ml UD PRN IV 08/05/17 23:00 08/09/17 22:59 Potassium Chloride/Dextrose/ Sod Cl 1,000 ml @ 100 mls/hr Q10H IV 08/06/17 03:30 09/05/17 03:29 08/07/17 02:37 125 MLS/HR Piperacillin Sod/ Tazobactam Sod 3.375 gm/Dextrose 115 ml @ 28.75 mls/ hr Q8H IV 08/06/17 10:00 08/16/17 09:59 08/07/17 01:36 28.75 MLS/HR Promethazine HCl 25 mg/Sodium Chloride 51 ml @ 204 mls/hr Q6H PRN IV 08/06/17 01:30 09/05/17 01:29 Ondansetron HCl (Zofran Inj) 4 mg Q6H PRN IV 08/06/17 01:30 09/05/17 01:29 Pantoprazole Sodium 40 mg/ Syringe 10 ml @ 5 mls/min DAILY@11 IV 08/06/17 11:00 09/05/17 10:59 08/06/17 11:21 5 MLS/MIN Lorazepam 0.5 mg/ Syringe 0.5 ml @ 0.5 mls/min Q6 PRN IV 08/06/17 01:45 09/05/17 01:44 08/06/17 21:28 0.5 MLS/MIN Promethazine HCl 12.5 mg/Sodium Chloride 50.5 ml @ 204 mls/hr Q6H PRN IV 08/06/17 04:00 09/05/17 03:59 Piperacillin Sod/ Tazobactam Sod (Consult) 1 ea UD PRN N/A 08/06/17 04:30 09/05/17 04:29 Heparin Sodium (Porcine) (Heparin Sq 5000 Unit/0.5ml) 5,000 unit Q12@0800,2000 SQ 08/06/17 12:00 09/05/17 11:59 08/07/17 08:08 5,000 UNIT Naloxone HCl (Narcan Inj) 0.1 mg Q5M PRN IV 08/06/17 15:15 09/05/17 15:14 Hydromorphone HCl (Dilaudid Associate Professor Of Geography) 25 mg PRN PRN IV 08/06/17 15:15 08/20/17 15:14 08/07/17 07:31 25 MG Sodium Chloride 1,000 ml @ 15 mls/hr Q24H IV 08/06/17 15:02 09/05/17 15:01 Physical Exam Height & Weight: Height 5 feet, 4.00 inches. Weight 44.600 (Kilograms) 98 (Pounds) Last Vital Signs Documentation Date Time Temp Pulse Resp B/P (MAP) Pulse Ox O2 Delivery O2 Flow Rate FiO2 08/07/17 07:35 97 Room Air 08/07/17 07:34 37.3 97 16 123/78 (93) 08/06/17 19:20 4.0 Laboratory Laboratory Results (Last CBC): 08/07/17 04:58 Assessment 1. [] 2. [] 3. [] 4. [] 5. [] Recommendations 1. [] 2. [] 3. [] 4. [] 5. []
[2017-08-07] MEDS: MAGNESIUM SULFATE 1GM / D5W 1 GM in PREMIXED IN D5W 100 ML IV SCH ×2 (09:36→10:39)
--- NOTE | 2017-08-07 10:02 | Anesthesiology Progress Note ---
Anesthesia Post Op Note Date & Time Aug 07, 2017 at 10:02 Vital Signs Vital Signs Past 12 Hours Date Time Temp Pulse Resp B/P (MAP) Pulse Ox O2 Delivery O2 Flow Rate FiO2 08/07/17 07:35 97 Room Air 08/07/17 07:34 37.3 97 16 123/78 (93) 97 Room Air 08/07/17 07:25 Room Air 08/07/17 03:18 36.8 99 14 120/73 (89) 96 Room Air 08/06/17 23:30 Room Air 08/06/17 22:52 37.7 108 14 134/79 (97) 98 Room Air Notes Mental Status: alert / awake / arousable, participated in evaluation Pt Amnestic to Procedure: Yes Nausea / Vomiting: adequately controlled Pain: adequately controlled Airway Patency, RR, SpO2: stable & adequate BP & HR: stable & adequate Hydration State: stable & adequate Anesthetic Complications: no major complications apparent
[2017-08-07] MEDS: PANTOprazole INJ 40 MG in SYRINGE 0 ML IV SCH (10:37)
--- NOTE | 2017-08-07 13:04 | Progress Note ---
Subjective Date of Service: Aug 07, 2017. Subjective Pt evaluation today including: conversation w/ patient, conversation w/ family , physical exam, chart review, lab review, review of inpatient medication list abdominal pain - but not using SALT CUTTER often notes baseline of chronic abdominal pain and diffuse muscular pain from fibromyalgia. has sought manipulative medicine type treatments for this but does not sound to have done so with consistency or frequency Problem List Medical Problems: (1) Central abdominal pain Status: Acute (2) Nausea Status: Acute (3) Small bowel obstruction Status: Acute Review of Systems all other ROS otherwise negative except for as above Objective Vital Signs Date Time Temp Pulse Resp B/P (MAP) Pulse Ox O2 Delivery O2 Flow Rate FiO2 08/07/17 10:58 37.1 88 16 118/76 (90) 94 Room Air 08/07/17 07:35 97 Room Air 08/07/17 07:34 37.3 97 16 123/78 (93) 97 Room Air 08/07/17 07:25 Room Air 08/07/17 03:18 36.8 99 14 120/73 (89) 96 Room Air 08/06/17 23:30 Room Air 08/06/17 22:52 37.7 108 14 134/79 (97) 98 Room Air 08/06/17 20:54 97 Room Air 08/06/17 19:20 37.6 100 16 119/76 (90) 100 Oxymask 4.0 08/06/17 18:05 37.5 104 16 112/76 (88) 100 Oxymask 4.0 08/06/17 17:02 37.5 95 16 121/77 (92) 100 Oxymask 4.0 08/06/17 16:00 37.2 100 16 130/78 (95) 99 Oxymask 4.0 08/06/17 16:00 37.5 103 16 129/81 (97) 100 Oxymask 4.0 08/06/17 15:29 37.5 93 16 126/77 (93) 100 Oxymask 4.0 08/06/17 15:20 Oxymask 3.0 08/06/17 14:15 37.0 99 16 129/86 (100) 100 Nasal Cannula 4.0 08/06/17 13:14 37.2 95 16 122/78 (93) 100 Oxymask 3.0 Physical Exam General Appearance: no apparent distress Eyes: EOMI ENT: hearing grossly normal, + pertinent finding (NGT in place without local breakdown) Neck: trachea midline Respiratory/Chest: no respiratory distress, no accessory muscle use Extremities: normal range of motion Neurologic/Psychiatric: information specialist II-XII nml as tested, alert Skin: normal color, warm/dry Laboratory Results Last 24 Hours Test 08/07/17 04:58 White Blood Count 5.28 K/uL Red Blood Count 3.41 M/uL Hemoglobin 11.2 g/dL Hematocrit 34.0 % Mean Corpuscular Volume 99.7 fL Mean Corpuscular Hemoglobin 32.8 pg Mean Corpuscular Hemoglobin Concent 32.9 g/dl RDW Standard Deviation 43.8 fL RDW Coefficient of Variation 12.1 % Platelet Count 221 K/uL Mean Platelet Volume 9.0 fL Sodium Level 141 mmol/L Potassium Level 3.9 mmol/L Chloride Level 109 mmol/L Carbon Dioxide Level 29 mmol/L Anion Gap 3.0 mmol/L Blood Urea Nitrogen 7 mg/dl Creatinine 0.74 mg/dl Est Creatinine Clear Calc Drug Dose 56.9 ml/min Estimated GFR () 102.1 Estimated GFR (Non- 88.1 BUN/Creatinine Ratio 9.3 Random Glucose 134 mg/dl Calcium Level 7.6 mg/dl Phosphorus Level 1.9 mg/dl Magnesium Level 1.6 mg/dl Assessment and Plan abdominal pain / adhesional pathology -post op -appearing stable -has SALT CUTTER for acute pain - was not really using. discussed usage particularly w immediate post op pain -offered OMT given studies showing hastened resolution of post op ileus, but pt declined chronic abdominal pain -SALT CUTTER for now, resume home meds once able to take PO fibromyalgia -discussed as extensively as she would allow anecdotal but reliable improvement w soft tissue focused manipulative medicine in my prior practice hyperlipid -resume home meds once able to take PO hypomagnesemia -replete IV since NPO post op DVT proph -heparin SQ medically appearing stable, will sign off at this time. please do not hesitate to contact me if i can be of further assistance. thank you.
[2017-08-08] VITALS (8 sets, daily range): BP systolic 128–153; BP diastolic 76–91; PULSE 104–116; TEMP 36.5–37.7; O2SAT 92–97
[2017-08-08] MEDS: LORAZEPAM INJ 0.5 MG in SYRINGE 0.25 ML IV PRN (00:08)
[2017-08-08] MEDS: PIPERACILL/TAZOBAC IV 3.375 GM in DEXTROSE 5% 100ML 100 ML IV SCH ×2 (02:18→09:41)
[2017-08-08 05:25] LABS: HEMATOCRIT 30.3 % (37-47); MEAN CELL VOLUME 98.7 fL (80-100); MEAN CORPUSCULAR HEMOGLOBIN 33.2 pg (25-34); MEAN CORPUSCULAR HGB CONC 33.7 g/dl (32-36); MEAN PLATELET VOLUME 8.9 fL (7.4-10.4); PLATELET COUNT 197 K/uL (130-400); RED BLOOD COUNT 3.07 M/uL (4.2-5.4); WHITE BLOOD COUNT 6.18 K/uL (4.8-10.8)
[2017-08-08 05:51] LABS: BUN/CREATININE RATIO 8.8 (10-20); CALCIUM 7.9 mg/dl (8.5-10.1); CREATININE 0.53 mg/dl (0.60-1.20); PHOSPHORUS 1.9 mg/dl (2.5-4.9); POTASSIUM 3.8 mmol/L (3.5-5.1)
--- NOTE | 2017-08-08 06:55 | Surgery Progress Note ---
Surgery Progress Note Date of Service Aug 08, 2017. Subjective resting comfortably at present- good urine output tachy, BP ok, 100-200cc / shift NG output Objective Vital Signs: Date Time Temp Pulse Resp B/P (MAP) Pulse Ox O2 Delivery O2 Flow Rate FiO2 08/08/17 03:10 37.4 115 16 130/76 (94) 95 Room Air 08/08/17 00:00 Room Air 08/07/17 22:55 36.8 109 16 141/88 (105) 94 Room Air 08/07/17 20:55 94 08/07/17 19:11 37.0 115 20 127/79 (95) 96 Room Air 08/07/17 15:45 Room Air 08/07/17 15:05 36.9 99 18 120/69 (86) 94 Room Air 08/07/17 10:58 37.1 88 16 118/76 (90) 94 Room Air 08/07/17 07:35 97 Room Air 08/07/17 07:34 37.3 97 16 123/78 (93) 97 Room Air 08/07/17 07:25 Room Air General Appearance: no apparent distress Respiratory/Chest: no respiratory distress Cardiovascular: + tachycardia Abdomen: + pertinent finding (mild distention) Incision(s): intact Laboratory Results: Results Past 24 Hours Test 08/08/17 05:06 Range/Units White Blood Count 6.18 4.8-10.8 K/uL Red Blood Count 3.07 4.2-5.4 M/uL Hemoglobin 10.2 12.0-16.0 g/dL Hematocrit 30.3 37-47 % Mean Corpuscular Volume 98.7 80-100 fL Mean Corpuscular Hemoglobin 33.2 25-34 pg Mean Corpuscular Hemoglobin Concent 33.7 32-36 g/dl RDW Standard Deviation 41.6 36.4-46.3 fL RDW Coefficient of Variation 11.6 11.5-14.5 % Platelet Count 197 130-400 K/uL Mean Platelet Volume 8.9 7.4-10.4 fL Sodium Level 142 136-145 mmol/L Potassium Level 3.8 3.5-5.1 mmol/L Chloride Level 108 98-107 mmol/L Carbon Dioxide Level 27 21-32 mmol/L Anion Gap 7.0 3-11 mmol/L Blood Urea Nitrogen 5 7-18 mg/dl Creatinine 0.53 0.60-1.20 mg/dl Est Creatinine Clear Calc Drug Dose 79.5 ml/min Estimated GFR () 119.6 Estimated GFR (Non- 103.2 BUN/Creatinine Ratio 8.8 10-20 Random Glucose 117 70-99 mg/dl Calcium Level 7.9 8.5-10.1 mg/dl Phosphorus Level 1.9 2.5-4.9 mg/dl Magnesium Level 2.0 1.8-2.4 mg/dl Assessment & Plan 08/08/17- no acute chgs- cont IV, NG , SAP BUSINESS OBJECTS CONSULTANT- suspect ileus will persist may need TPN/Picc - and pain control will likely be difficult- she didn't want to talk to Dr White yest- try to mobilize 08/07/17- s/p laparotomy, lysis of adhesions, closure internal hernia pain control difficult- on chr pain meds- ask pain mgt to help will have ileus for days likely- NPO, try to mobilize 08/06/17- slight improvement with NG- plan for surgery today- laparotomy, lysis of adhesions, possible bowel resection 08/07/17- s/p laparotomy, lysis of adhesions, closure internal hernia pain control difficult- on chr pain meds- ask pain mgt to help will have ileus for days likely- NPO, try to mobilize 08/06/17- slight improvement with NG- plan for surgery today- laparotomy, lysis of adhesions, possible bowel resection
[2017-08-08] MEDS: HYDROmorphone HCL 0.5MG/ML 50 ML CASSETTE IV PRN ×4 (07:07→22:54)
[2017-08-08] MEDS: D5NSS + 20MEQ KCL 1,000 ML IV SCH ×2 (08:03→19:04)
[2017-08-08] MEDS: HEPARIN SOD 5000 UNIT/0.5 ML CARP SQ SCH ×2 (08:04→20:14)
[2017-08-08] MEDS: SODIUM CHLORIDE 0.9% 1000ML 1,000 ML IV SCH (09:45)
[2017-08-08] MEDS: PANTOprazole INJ 40 MG in SYRINGE 0 ML IV SCH (10:48)
[2017-08-08] MEDS ORDERED: NURSING VERBAL MED ORDER ONE (11:15)
[2017-08-08] MEDS: ACETAMINOPHEN IV 1,000 MG in EMPTY BAG 0 ML IV SCH ×2 (12:46→20:12)
--- NOTE | 2017-08-08 13:23 | Pain Management Consultation ---
Pain Management Consultation Date of Consultation Aug 08, 2017. Reason for Consultation Assistance with pain management Pain Location 1 - Generalized pain History Hollie Lopez is a 61 yr old female with history of chronic abdominal pain who s/p abdominal surgery. Consult was requested for assistance with pain management. She is a very vague and poor historian with regards to her chronic abdominal pain history and history of past pain therapies. She states she is experiencing her typical abdominal pain (pointing to her lower abdomen). Rates the pain as 10/10 when severe and 9/10 when minimal. She reports no precipitating or provocative factors or alleviating factors that effect her pain. Denies any specific events that triggered her symptoms. She has undergone several intra-abdominal surgeries in the past, with persistent pain post operatively. Prior to her admission, she was being treated with hydrocodone, buprenorphine patch and pregabalin. Reports pain despite those medications. She has a history of depression and anxiety. She has not seen by a mental health specialist for her anxiety or depression. She denies being depressed but reports elevated anxiety over the last few weeks. Currently she is receiving IV hydromorphone ANESTHESIOLOGIST ASSISTANT CERTIFIED post operatively. She has only used approximately 2.5 mg overnight. Past Medical/Surgical History (1) Small bowel obstruction (2) Central abdominal pain (3) Ischemic colitis (4) Tobacco use disorder (5) Gastroparesis (6) Anemia (7) Chronic chest pain (8) H/O left hemicolectomy (9) History of partial colectomy (10) S/P colon resection Family History No significant family history Social / Work History Drug Use: none Marital Status: Housing Status: lives with family Allergies Coded Allergies: Sulfa Antibiotics (Verified Allergy, Mild, RASH, 08/06/17) Citalopram (Verified Adverse Reaction, Unknown, rash, 08/05/17) Medications Current Inpatient Medications Medications (Trade) Dose Ordered Sig/Dereck Route Start Time Stop Time Status Last Admin Dose Admin Ioversol (Optiray 320) 100 ml UD PRN IV 08/05/17 23:00 08/09/17 22:59 Potassium Chloride/Dextrose/ Sod Cl 1,000 ml @ 100 mls/hr Q10H IV 08/06/17 03:30 09/05/17 03:29 08/08/17 08:03 100 MLS/HR Piperacillin Sod/ Tazobactam Sod 3.375 gm/Dextrose 115 ml @ 28.75 mls/ hr Q8H IV 08/06/17 10:00 08/16/17 09:59 08/08/17 09:41 28.75 MLS/HR Promethazine HCl 25 mg/Sodium Chloride 51 ml @ 204 mls/hr Q6H PRN IV 08/06/17 01:30 09/05/17 01:29 Ondansetron HCl (Zofran Inj) 4 mg Q6H PRN IV 08/06/17 01:30 09/05/17 01:29 Pantoprazole Sodium 40 mg/ Syringe 10 ml @ 5 mls/min DAILY@11 IV 08/06/17 11:00 09/05/17 10:59 08/07/17 10:37 5 MLS/MIN Lorazepam 0.5 mg/ Syringe 0.5 ml @ 0.5 mls/min Q6 PRN IV 08/06/17 01:45 09/05/17 01:44 08/08/17 00:08 0.5 MLS/MIN Promethazine HCl 12.5 mg/Sodium Chloride 50.5 ml @ 204 mls/hr Q6H PRN IV 08/06/17 04:00 09/05/17 03:59 Piperacillin Sod/ Tazobactam Sod (Consult) 1 ea UD PRN N/A 08/06/17 04:30 09/05/17 04:29 Heparin Sodium (Porcine) (Heparin Sq 5000 Unit/0.5ml) 5,000 unit Q12@0800,2000 SQ 08/06/17 12:00 09/05/17 11:59 08/08/17 08:04 5,000 UNIT Naloxone HCl (Narcan Inj) 0.1 mg Q5M PRN IV 08/06/17 15:15 09/05/17 15:14 Hydromorphone HCl (Dilaudid [place]) 25 mg PRN PRN IV 08/06/17 15:15 08/20/17 15:14 08/08/17 09:29 25 MG Sodium Chloride 1,000 ml @ 15 mls/hr Q24H IV 08/06/17 15:02 09/05/17 15:01 Review of Systems Denies any recent history of fever, night sweats, unexplained weight loss, or constitutional symptoms. Otherwise, 8 point review of system has been reported to be negative. Physical Exam Height & Weight: Height 5 feet, 4.00 inches. Weight 44.600 (Kilograms) 98 (Pounds) Last Vital Signs Documentation Date Time Temp Pulse Resp B/P (MAP) Pulse Ox O2 Delivery O2 Flow Rate FiO2 08/08/17 07:38 37.1 104 18 145/85 (105) 94 Room Air 08/06/17 19:20 4.0 Exam: She is awake and alert. She is lying in supine position appears been no pain or discomfort at the present time. She is vague in answering questions and is able to focus and are clean of thought. She has a large ABD pad or abdomen full he dressed. Palpation produces pain at incision site. Bowel sounds are hypoactive. Laboratory Laboratory Results (Last CBC): 08/08/17 05:06 [place] Drug Monitoring Program Search Results: patient reviewed within database Drug Monitoring Findings: Receiving hydrocodone, pregabalin and Butrans patch from a single provider. Opioid Risk Assessment Risk assessment performed, moderate risk identified Assessment 1. Chronic abdominal pain. 2. Postoperative acute abdominal pain. 3. History of depression/anxiety. 4. Moderate to high risk for chronic opioid use based on the assessment risks tool. Recommendations 1. Continue IV ANESTHESIOLOGIST ASSISTANT CERTIFIED as currently prescribed until taking PO. 2. Recommend oral tapentadol 50 mg q6h when taking PO. 3. Resume pregabalin when taking PO. 4. Please reconsult pain service again if patient has persistent acute post op pain after next several day.
[2017-08-08] MEDS ORDERED: DEXTROSE 10% 1,000 ML IV PRN (15:09)
[2017-08-08] MEDS ORDERED: CUSTOM CENTRAL PN 1 BAG IV SCH (15:15)
[2017-08-08] MEDS ORDERED: TPN/PPN CONSULT PHARMACY PRN (15:15)
[2017-08-08] MEDS: CEFOXITIN IV 1,000 MG in DEXTROSE 5% 50ML 50 ML IV SCH (19:03)
[2017-08-09] MEDS: CEFOXITIN IV 1,000 MG in DEXTROSE 5% 50ML 50 ML IV SCH ×3 (02:29→18:21)
[2017-08-09 03:04] VITALS: BP 138/78; PULSE 112; TEMP 37.3; O2SAT 92
[2017-08-09] MEDS: ACETAMINOPHEN IV 1,000 MG in EMPTY BAG 0 ML IV SCH (03:07)
[2017-08-09] MEDS: D5NSS + 20MEQ KCL 1,000 ML IV SCH ×2 (04:22→15:10)
[2017-08-09 06:29] LABS: BUN/CREATININE RATIO 6.7 (10-20); CALCIUM 8.4 mg/dl (8.5-10.1); CREATININE 0.49 mg/dl (0.60-1.20); MAGNESIUM 1.9 mg/dl (1.8-2.4); POTASSIUM 4.3 mmol/L (3.5-5.1)
[2017-08-09 06:30] LABS: C-REACTIVE PROTEIN 10.6 mg/dl (0-0.29); PHOSPHORUS 2.1 mg/dl (2.5-4.9)
[2017-08-09] MEDS: HYDROmorphone HCL 0.5MG/ML 50 ML CASSETTE IV PRN ×4 (07:11→22:53)
--- NOTE | 2017-08-09 07:30 | Surgery Progress Note ---
Surgery Progress Note Date of Service Aug 09, 2017. Subjective very anxious but not as diaphoretic- still tachy adeq urine output, mod NG output Objective Vital Signs: Date Time Temp Pulse Resp B/P (MAP) Pulse Ox O2 Delivery O2 Flow Rate FiO2 08/09/17 03:04 37.3 112 18 138/78 (98) 92 Room Air 08/09/17 00:15 Room Air 08/08/17 22:54 37.3 112 16 128/77 (94) 95 Room Air 08/08/17 19:15 36.8 116 18 146/91 (109) 97 Room Air 08/08/17 15:55 Room Air 08/08/17 15:35 36.5 111 16 137/80 (99) 92 Room Air 08/08/17 12:23 36.7 115 20 153/81 (105) 92 Room Air 08/08/17 10:45 37.4 08/08/17 10:40 37.7 08/08/17 08:00 Room Air 08/08/17 07:38 37.1 104 18 145/85 (105) 94 Room Air General Appearance: no apparent distress Respiratory/Chest: no respiratory distress Abdomen: + abnormal bowel sounds, + distended Incision(s): intact Laboratory Results: Results Past 24 Hours Test 08/09/17 05:30 Range/Units Sodium Level 141 136-145 mmol/L Potassium Level 4.3 3.5-5.1 mmol/L Chloride Level 109 98-107 mmol/L Carbon Dioxide Level 28 21-32 mmol/L Anion Gap 4.0 3-11 mmol/L Blood Urea Nitrogen 3 7-18 mg/dl Creatinine 0.49 0.60-1.20 mg/dl Est Creatinine Clear Calc Drug Dose 86.0 ml/min Estimated GFR () 122.7 Estimated GFR (Non- 105.9 BUN/Creatinine Ratio 6.7 10-20 Random Glucose 116 70-99 mg/dl Calcium Level 8.4 8.5-10.1 mg/dl Phosphorus Level 2.1 2.5-4.9 mg/dl Magnesium Level 1.9 1.8-2.4 mg/dl C-Reactive Protein 10.60 0-0.29 mg/dl Albumin 2.4 3.4-5.0 gm/dl Triglycerides Level 102 0-150 mg/dl Assessment & Plan 08/09/17- bringing patch from home, cont NG, link today IV atbx, TPN to begin later today- expect GI dysfunction for several days- try to mobilize 08/08/17- no acute chgs- cont IV, NG , TENTMAKER- suspect ileus will persist may need TPN/Picc - and pain control will likely be difficult- she didn't want to talk to Dr White yest- try to mobilize 08/07/17- s/p laparotomy, lysis of adhesions, closure internal hernia pain control difficult- on chr pain meds- ask pain mgt to help will have ileus for days likely- NPO, try to mobilize 08/06/17- slight improvement with NG- plan for surgery today- laparotomy, lysis of adhesions, possible bowel resection 08/08/17- no acute chgs- cont IV, NG , TENTMAKER- suspect ileus will persist may need TPN/Picc - and pain control will likely be difficult- she didn't want to talk to Dr White yest- try to mobilize 08/07/17- s/p laparotomy, lysis of adhesions, closure internal hernia pain control difficult- on chr pain meds- ask pain mgt to help will have ileus for days likely- NPO, try to mobilize 08/06/17- slight improvement with NG- plan for surgery today- laparotomy, lysis of adhesions, possible bowel resection
[2017-08-09] MEDS ORDERED: FUROSEMIDE INJ 20 MG in SYRINGE 0 ML IV ONE (07:45)
[2017-08-09] MEDS: HEPARIN SOD 5000 UNIT/0.5 ML CARP SQ SCH ×2 (08:52→20:17)
[2017-08-09 09:53] VITALS: BP 143/87; PULSE 90; TEMP 36.9; O2SAT 96
--- NOTE | 2017-08-09 10:38 | Pharmacy Progress Note ---
Parenteral Nutrition Consult Date of Service Aug 09, 2017. Scope Pharmacy has been consulted to manage parenteral nutrition orders and order appropriate labs. As part of the Nutrition Support Team guidelines, pharmacy will work in conjunction with dietary when determining the patients caloric needs. Subjective The patient is a 61 year old female admitted on Aug 06, 2017 at 01:33 for Bowel Obstruction. Patient is to receive parenteral nutrition for post-op ileus. Pertinent PMH: multiple abdominal operations including colon resection, small bowel perforation with adhesions Objective Height (Feet): 5 Height (Inches): 4.00 Weight (Kilograms): 44.600 Diet: NPO Vascular Access: PICC Intake & Output (Last 72 Hr): 08/08/17 08/09/17 08/10/17 08:00 08:00 08:00 Intake Total 2890 ml 3106 ml Output Total 2010 ml 1525 ml Balance 880 ml 1581 ml Laboratory Data (Last 24 Hr): Test 08/09/17 05:30 Albumin 2.4 gm/dl (3.4-5.0) Blood Urea Nitrogen 3 mg/dl (7-18) Calcium Level 8.4 mg/dl (8.5-10.1) Carbon Dioxide Level 28 mmol/L (21-32) Chloride Level 109 mmol/L (98-107) Creatinine 0.49 mg/dl (0.60-1.20) Magnesium Level 1.9 mg/dl (1.8-2.4) Phosphorus Level 2.1 mg/dl (2.5-4.9) Potassium Level 4.3 mmol/L (3.5-5.1) Random Glucose 116 mg/dl (70-99) Sodium Level 141 mmol/L (136-145) Triglycerides Level 102 mg/dl (0-150) Nutrition Assessment Please refer to the Notes section of the EMR for the most recent drama director note. Assessment 61 yo female presented with small bowel obstruction with s/p laparotomy with lysis of adhesion with post-op ileus. Patient NPO day #3 Electrolytes WNL with the exception of Chloride 109 (H) and Ca 8.4 (L) Plan For day 1 of PN administration, the following will be ordered: Macronutrients Amino acids 45 grams/day Dextrose 125 grams/day Lipids 20 grams/day Micronutrients Combined electrolytes 40 mL - contains 35 mEq Na, 20 meq K, 4.5 mEq Ca, 5 mEq Mg , 35 mEq Cl, 29.5 mEq acetate per 20 mL Sodium acetate 50 mEq Potassium phosphate 21 mMol Multivitamins 10 mL Trace Elements 1 mL Additional additives: Folic Acid 1 mg Thiamine 100 mg Total volume 2400 mL to be infused over 24 hrs will provide 805 kcal/day Labs to be ordered per PN order protocol Pharmacy will follow and adjust parenteral nutrition orders on a daily basis. Thank you.
[2017-08-09] MEDS: PANTOprazole INJ 40 MG in SYRINGE 0 ML IV SCH (11:04)
[2017-08-09 11:45] VITALS: BP 123/75; PULSE 96; TEMP 36.6; O2SAT 94
[2017-08-09] MEDS: SODIUM CHLORIDE 0.9% 1000ML 1,000 ML IV SCH ×2 (15:02→15:59)
[2017-08-09 15:24] VITALS: BP 137/84; PULSE 94; TEMP 36.9; O2SAT 93
[2017-08-09] MEDS ORDERED: CUSTOM CENTRAL PN 1 BAG IV SCH (16:00)
--- NOTE | 2017-08-09 18:26 | Progress Note ---
Subjective Date of Service: Aug 09, 2017. Subjective Pt evaluation today including: conversation w/ patient, physical exam, chart review, lab review, conversation w/ sql server consultant, review of inpatient medication list Problem List Medical Problems: (1) Central abdominal pain Status: Acute (2) Nausea Status: Acute (3) Small bowel obstruction Status: Acute Review of Systems Constitutional: No see HPI, No fever, No chills, No sweats, No weight loss, No weakness, No fatigue, No problem reported Eyes: No see HPI, No worsening of vision, No eye pain, No redness, No discharge , No diplopia, No problem reported ENT: No see HPI, No hearing loss, No unusual epistaxis, No nasal symptoms, No sore throat, No tinnitus, No dental problems, No trouble swallowing, No problem reported Respiratory: No see HPI, No cough, No sputum, No wheezing, No shortness of breath, No dyspnea on exertion, No dyspnea at rest, No hemoptysis, No problem reported Cardiac: No see HPI, No chest pain, No orthopnea, No PND, No edema, No claudication, No palpitations, No problem reported Abdomen: + pain, No see HPI, No nausea, No vomiting, No diarrhea, No constipation, No GI bleeding, No problem reported Musculoskeletal: No see HPI, No joint pain, No muscle pain, No swelling, No calf pain, No problem reported Female : No see HPI, No dysuria, No urinary frequency, No hematuria, No incontinence, No abnormal vaginal bleeding, No vaginal discharge, No problem reported Neurologic: No see HPI, No memory loss, No paralysis, No weakness, No numbness/ tingling, No vertigo, No balance problems, No problem reported Psychiatric: No see HPI, No depression symptoms, No anhedonism, No anxiety, No insomnia, No substance abuse, No problem reported Heme: No see HPI, No abnormal bleeding/bruising, No clotting problems, No swollen lymph nodes, No night sweats, No problem reported Endo: No see HPI, No fatigue, No excessive thirst, No excessive urination, No problem reported Skin: No see HPI, No rash, No itch, No new/changing skin lesions, No color change, No bleeding, No problem reported Objective Vital Signs Date Time Temp Pulse Resp B/P (MAP) Pulse Ox O2 Delivery O2 Flow Rate FiO2 08/09/17 15:24 36.9 94 20 137/84 (101) 93 Room Air 08/09/17 11:45 36.6 96 20 123/75 (91) 94 Room Air 08/09/17 09:53 36.9 90 16 143/87 (105) 96 Room Air 08/09/17 08:05 Room Air 08/09/17 03:04 37.3 112 18 138/78 (98) 92 Room Air 08/09/17 00:15 Room Air 08/08/17 22:54 37.3 112 16 128/77 (94) 95 Room Air 08/08/17 19:15 36.8 116 18 146/91 (109) 97 Room Air Physical Exam General Appearance: WD/WN, no apparent distress Eyes: normal inspection, EOMI ENT: normal ENT inspection, hearing grossly normal Neck: supple Respiratory/Chest: chest non-tender, lungs clear, normal breath sounds, no respiratory distress Cardiovascular: regular rate, rhythm, no edema, no gallop, no JVD, no murmur Abdomen: + tenderness Extremities: normal range of motion, non-tender, normal inspection, no pedal edema, no calf tenderness 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60 mg/dl Albumin 2.4 gm/dl Triglycerides Level 102 mg/dl Assessment and Plan 61 years old female with past medical history of ischemic colitis is status post colon resection presented to the ED with intestinal obstruction Assessment Intestinal obstruction secondary to adhesions Decrease oral intake Electrolyte imbalance fibromyalgia Hyperlipidemia Plan s/p laparotomy, lysis of adhesions, closure internal hernia 08/06 Started on [employer] pump, challenging pain control, patient will bring her patch from home Currently nothing by mouth Pharmacy to order TPN Heparin for DVT prophylaxis Ordered electrolytes in a.m. including magnesium and phosphorus
[2017-08-09] MEDS: BUPRENORPHINE 10 MCG/HR TDSY TD SCH (20:16)
[2017-08-09 23:28] VITALS: BP 130/78; PULSE 94; TEMP 37; O2SAT 93
[2017-08-10] MEDS: CEFOXITIN IV 1,000 MG in DEXTROSE 5% 50ML 50 ML IV SCH ×3 (02:27→18:21)
[2017-08-10 02:54] VITALS: BP 143/86; PULSE 111; TEMP 36.9; O2SAT 95
[2017-08-10 06:00] LABS: BASO % 0.3 %; BASO ABS # 0.03 K/uL (0-0.2); COMPLETE YES; HEMATOCRIT 31.8 % (37-47); IG% 0.4 %; LYMPH % 14.2 %; LYMPH ABS # 1.29 K/uL (1.2-3.4); MEAN CELL VOLUME 97.8 fL (80-100); MEAN CORPUSCULAR HEMOGLOBIN 33.5 pg (25-34); MEAN CORPUSCULAR HGB CONC 34.3 g/dl (32-36); MEAN PLATELET VOLUME 8.9 fL (7.4-10.4); MONO % 7.3 %; NEUT % 69.8 %; PLATELET COUNT 275 K/uL (130-400); RED BLOOD COUNT 3.25 M/uL (4.2-5.4)
[2017-08-10 06:31] LABS: BUN/CREATININE RATIO 16.3 (10-20); CALCIUM 8.7 mg/dl (8.5-10.1); CREATININE 0.48 mg/dl (0.60-1.20); MAGNESIUM 2.1 mg/dl (1.8-2.4); POTASSIUM 4.1 mmol/L (3.5-5.1)
[2017-08-10 06:39] LABS: ALB/GLOB RATIO 0.8 (0.9-2); PHOSPHORUS 3.1 mg/dl (2.5-4.9)
[2017-08-10] MEDS: HYDROmorphone HCL 0.5MG/ML 50 ML CASSETTE IV PRN ×4 (07:01→23:03)
[2017-08-10 07:24] VITALS: BP 132/83; PULSE 102; TEMP 36.9; O2SAT 97
[2017-08-10] MEDS: PANTOprazole INJ 40 MG in SYRINGE 0 ML IV SCH (07:57)
[2017-08-10] MEDS: HEPARIN SOD 5000 UNIT/0.5 ML CARP SQ SCH ×2 (07:59→20:22)
[2017-08-10] MEDS: SUCRALFATE 1 GM/10 ML UDC PO SCH ×4 (08:41→21:02)
[2017-08-10 11:22] VITALS: BP 128/77; PULSE 96; TEMP 36.8; O2SAT 94
[2017-08-10] MEDS ORDERED: NURSING VERBAL MED ORDER ONE (15:00)
[2017-08-10 15:10] VITALS: BP 128/78; PULSE 98; TEMP 37.2; O2SAT 95
[2017-08-10] MEDS: SODIUM CHLORIDE 0.9% 1000ML 1,000 ML IV SCH (15:14)
--- NOTE | 2017-08-10 15:46 | Pharmacy Progress Note ---
Parenteral Nutrition Consult Date of Service Aug 10, 2017. Scope Pharmacy was consulted on 08/09 to manage parenteral nutrition orders for this patient. Subjective The patient is currently on day 2 of central parenteral nutrition for post-op ileus Objective Height (Feet): 5 Height (Inches): 4.00 Weight (Kilograms): 46.200 Diet: NPO Vascular Access: PICC Intake & Output (Last 72 Hr): 08/09/17 08/10/17 08/11/17 08:00 08:00 08:00 Intake Total 3106 ml 2594 ml 1118 ml Output Total 1525 ml 3340 ml 400 ml Balance 1581 ml -746 ml 718 ml Laboratory Data (Last 24 Hr): Test 08/10/17 05:28 Alanine Aminotransferase (ALT/SGPT) 24 U/L (12-78) Albumin 2.6 gm/dl (3.4-5.0) Alkaline Phosphatase 69 U/L (45-117) Aspartate Amino Transf (AST/SGOT) 37 U/L (15-37) Blood Urea Nitrogen 8 mg/dl (7-18) Calcium Level 8.7 mg/dl (8.5-10.1) Carbon Dioxide Level 30 mmol/L (21-32) Chloride Level 102 mmol/L (98-107) Creatinine 0.48 mg/dl (0.60-1.20) Magnesium Level 2.1 mg/dl (1.8-2.4) Phosphorus Level 3.1 mg/dl (2.5-4.9) Potassium Level 4.1 mmol/L (3.5-5.1) Random Glucose 108 mg/dl (70-99) Sodium Level 139 mmol/L (136-145) Total Bilirubin 0.3 mg/dl (0.2-1) Triglycerides Level 123 mg/dl (0-150) Nutrition Assessment Please refer to the Notes section of the EMR for the most recent cosmetic consultant note. Assessment Patient tolerated tpn at ~70% of goal. Will increase to goal kcal today. Electrolytes WNL- continue same today Plan For day 2 of PN administration, the following will be ordered: Macronutrients Amino acids 70 grams/day Dextrose 150 grams/day Lipids 40 grams/day Micronutrients Combined electrolytes 40 mL - contains 35 mEq Na, 20 meq K, 4.5 mEq Ca, 5 mEq Mg , 35 mEq Cl, 29.5 mEq acetate per 20 mL Sodium acetate 50 mEq Potassium phosphate 21 mMol Multivitamins 10 mL Trace Elements 1 mL Additional additives: Folic Acid 1 mg Thiamine 100 mg Total volume 2400 mL to be infused over 24 hrs will provide 1190 kcal/day Labs, as indicated, will be ordered per protocol Pharmacy will continue to follow and adjust parenteral nutrition orders on a daily basis. Thank you for allowing us to participate in the care of this patient.
[2017-08-10] MEDS ORDERED: CUSTOM CENTRAL PN 1 BAG IV SCH (16:00)
--- NOTE | 2017-08-10 17:00 | Progress Note ---
Subjective Date of Service: Aug 10, 2017. Subjective Pt evaluation today including: conversation w/ patient, conversation w/ family , physical exam, chart review, lab review, review of inpatient medication list Problem List Medical Problems: (1) Central abdominal pain Status: Acute (2) Nausea Status: Acute (3) Small bowel obstruction Status: Acute Review of Systems Constitutional: No see HPI, No fever, No chills, No sweats, No weight loss, No weakness, No fatigue, No problem reported Eyes: No see HPI, No worsening of vision, No eye pain, No redness, No discharge , No diplopia, No problem reported ENT: No see HPI, No hearing loss, No unusual epistaxis, No nasal symptoms, No sore throat, No tinnitus, No dental problems, No trouble swallowing, No problem reported Respiratory: No see HPI, No cough, No sputum, No wheezing, No shortness of breath, No dyspnea on exertion, No dyspnea at rest, No hemoptysis, No problem reported Cardiac: No see HPI, No chest pain, No orthopnea, No PND, No edema, No claudication, No palpitations, No problem reported Abdomen: + pain, No see HPI, No nausea, No vomiting, No diarrhea, No constipation, No GI bleeding, No problem reported Musculoskeletal: No see HPI, No joint pain, No muscle pain, No swelling, No calf pain, No problem reported Female : No see HPI, No dysuria, No urinary frequency, No hematuria, No incontinence, No abnormal vaginal bleeding, No vaginal discharge, No problem reported Neurologic: No see HPI, No memory loss, No paralysis, No weakness, No numbness/ tingling, No vertigo, No balance problems, No problem reported Psychiatric: No see HPI, No depression symptoms, No anhedonism, No anxiety, No insomnia, No substance abuse, No problem reported Heme: No see HPI, No abnormal bleeding/bruising, No clotting problems, No swollen lymph nodes, No night sweats, No problem reported Endo: No see HPI, No fatigue, No excessive thirst, No excessive urination, No problem reported Skin: No see HPI, No rash, No itch, No new/changing skin lesions, No color change, No bleeding, No problem reported Objective Vital Signs Date Time Temp Pulse Resp B/P (MAP) Pulse Ox O2 Delivery O2 Flow Rate FiO2 08/10/17 15:15 Room Air 08/10/17 15:10 37.2 98 16 128/78 (95) 95 Room Air 08/10/17 11:22 36.8 96 17 128/77 (94) 94 Room Air 08/10/17 07:45 Room Air 08/10/17 07:24 36.9 102 18 132/83 (99) 97 Room Air 08/10/17 02:54 36.9 111 18 143/86 (105) 95 Room Air 08/10/17 00:30 Room Air 08/09/17 23:28 37.0 94 16 130/78 (95) 93 Room Air Physical Exam General Appearance: WD/WN, no apparent distress Eyes: normal inspection, EOMI ENT: normal ENT inspection, hearing grossly normal Neck: supple Respiratory/Chest: chest non-tender, lungs clear, normal breath sounds, no respiratory distress, no accessory muscle use Cardiovascular: regular rate, rhythm, no edema, no gallop, no JVD, no murmur Abdomen: + distended, + tenderness Extremities: normal range of motion, non-tender, normal inspection, no pedal edema, no calf tenderness Neurologic/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, no motor/sensory deficits, alert, normal mood/affect, oriented x 3 Skin: normal color, warm/dry, no rash Laboratory Results Last 24 Hours Test 08/09/17 18:06 08/10/17 05:28 08/10/17 05:39 08/10/17 12:18 Bedside Glucose 90 mg/dl 102 mg/dl 115 mg/dl White Blood Count 9.10 K/uL Red Blood Count 3.25 M/uL Hemoglobin 10.9 g/dL Hematocrit 31.8 % Mean Corpuscular Volume 97.8 fL Mean Corpuscular Hemoglobin 33.5 pg Mean Corpuscular Hemoglobin Concent 34.3 g/dl Platelet Count 275 K/uL Mean Platelet Volume 8.9 fL Neutrophils (%) (Auto) 69.8 % Lymphocytes (%) (Auto) 14.2 % Monocytes (%) (Auto) 7.3 % Eosinophils (%) (Auto) 8.0 % Basophils (%) (Auto) 0.3 % Neutrophils # (Auto) 6.35 K/uL Lymphocytes # (Auto) 1.29 K/uL Monocytes # (Auto) 0.66 K/uL Eosinophils # (Auto) 0.73 K/uL Basophils # (Auto) 0.03 K/uL RDW Standard Deviation 42.3 fL RDW Coefficient of Variation 11.8 % Immature Granulocyte % (Auto) 0.4 % Immature Granulocyte # (Auto) 0.04 K/uL Sodium Level 139 mmol/L Potassium Level 4.1 mmol/L Chloride Level 102 mmol/L Carbon Dioxide Level 30 mmol/L Anion Gap 7.0 mmol/L Blood Urea Nitrogen 8 mg/dl Creatinine 0.48 mg/dl Est Creatinine Clear Calc Drug Dose 87.8 ml/min Estimated GFR () 123.6 Estimated GFR (Non- 106.6 BUN/Creatinine Ratio 16.3 Random Glucose 108 mg/dl Calcium Level 8.7 mg/dl Phosphorus Level 3.1 mg/dl Magnesium Level 2.1 mg/dl Total Bilirubin 0.3 mg/dl Aspartate Amino Transf (AST/SGOT) 37 U/L Alanine Aminotransferase (ALT/SGPT) 24 U/L Alkaline Phosphatase 69 U/L Total Protein 5.9 gm/dl Albumin 2.6 gm/dl Globulin 3.3 gm/dl Albumin/Globulin Ratio 0.8 Triglycerides Level 123 mg/dl Assessment and Plan 61 years old female with past medical history of ischemic colitis is status post colon resection presented to the ED with intestinal obstruction Assessment: abdominal pain secondary to below Intestinal obstruction secondary to adhesions Decrease oral intake Electrolyte imbalance fibromyalgia Hyperlipidemia Plan: abdominal pain improving s/p laparotomy, lysis of adhesions, closure internal hernia 08/06 yesterday Started on MOLD MACHINE OPERATOR pump, challenging pain control, patient will bring her patch from home Currently nothing by mouth Pharmacy ordering TPN Heparin for DVT prophylaxis follow up electrolytes in a.m. including magnesium and phosphorus
[2017-08-10 20:37] VITALS: BP 124/78; PULSE 97; TEMP 37.5; O2SAT 95
[2017-08-10 23:30] VITALS: BP 128/77; PULSE 108; TEMP 36.9; O2SAT 95
[2017-08-11] MEDS: CEFOXITIN IV 1,000 MG in DEXTROSE 5% 50ML 50 ML IV SCH ×3 (01:28→18:04)
[2017-08-11 03:38] VITALS: BP 116/76; PULSE 99; TEMP 36.9; O2SAT 96
[2017-08-11] MEDS ORDERED: NURSING VERBAL MED ORDER ONE (04:15)
[2017-08-11] MEDS ORDERED: PANTOprazole INJ 40 MG in SYRINGE 0 ML IV STA (04:31)
[2017-08-11 06:24] LABS: BASO % 0.4 %; BASO ABS # 0.04 K/uL (0-0.2); COMPLETE YES; EOS % 7.2 %; HEMATOCRIT 32.5 % (37-47); IG% 0.7 %; LYMPH % 14.7 %; LYMPH ABS # 1.41 K/uL (1.2-3.4); MEAN CELL VOLUME 96.7 fL (80-100); MEAN CORPUSCULAR HEMOGLOBIN 32.7 pg (25-34); MEAN CORPUSCULAR HGB CONC 33.8 g/dl (32-36); MEAN PLATELET VOLUME 9.2 fL (7.4-10.4); MONO % 8.9 %; NEUT % 68.1 %; PLATELET COUNT 342 K/uL (130-400); RED BLOOD COUNT 3.36 M/uL (4.2-5.4); WHITE BLOOD COUNT 9.58 K/uL (4.8-10.8)
[2017-08-11] MEDS: HYDROmorphone HCL 0.5MG/ML 50 ML CASSETTE IV PRN ×3 (06:51→22:49)
[2017-08-11 06:54] LABS: CREATININE 0.53 mg/dl (0.60-1.20)
[2017-08-11 06:55] LABS: BUN/CREATININE RATIO 28.6 (10-20); CALCIUM 8.7 mg/dl (8.5-10.1); MAGNESIUM 2.2 mg/dl (1.8-2.4); POTASSIUM 3.9 mmol/L (3.5-5.1)
[2017-08-11 06:57] LABS: ALB/GLOB RATIO 0.8 (0.9-2); PHOSPHORUS 3.5 mg/dl (2.5-4.9)
[2017-08-11 07:08] VITALS: BP 132/81; PULSE 111; TEMP 36.7; O2SAT 100
--- NOTE | 2017-08-11 08:31 | Surgery Progress Note ---
Surgery Progress Note Date of Service Aug 11, 2017. Subjective Post OP Day: 6 man complaint is severe "reflux" .. pain ok. no bowel fx yet Objective Vital Signs: Date Time Temp Pulse Resp B/P (MAP) Pulse Ox O2 Delivery O2 Flow Rate FiO2 08/11/17 07:08 36.7 111 17 132/81 (98) 100 Room Air 08/11/17 03:38 36.9 99 16 116/76 (89) 96 Room Air 08/10/17 23:37 Room Air 08/10/17 23:30 36.9 108 16 128/77 (94) 95 Room Air 08/10/17 20:37 37.5 97 18 124/78 (93) 95 Room Air 08/10/17 15:15 Room Air 08/10/17 15:10 37.2 98 16 128/78 (95) 95 Room Air 08/10/17 11:22 36.8 96 17 128/77 (94) 94 Room Air Physical Exam: nasogastric drainage (minimal per nurse) General Appearance: no apparent distress Abdomen: non distended, soft, + pertinent finding (minimal expected incisional tenderness) Incision(s): clean, dry, no erythema Laboratory Results: Results Past 24 Hours Test 08/10/17 12:18 08/10/17 17:57 08/10/17 23:28 08/11/17 05:40 Range/Units Bedside Glucose 115 103 106 104 70-90 mg/dl Test 08/11/17 05:51 Range/Units White Blood Count 9.58 4.8-10.8 K/uL Red Blood Count 3.36 4.2-5.4 M/uL Hemoglobin 11.0 12.0-16.0 g/dL Hematocrit 32.5 37-47 % Mean Corpuscular Volume 96.7 80-100 fL Mean Corpuscular Hemoglobin 32.7 25-34 pg Mean Corpuscular Hemoglobin Concent 33.8 32-36 g/dl Platelet Count 342 130-400 K/uL Mean Platelet Volume 9.2 7.4-10.4 fL Neutrophils (%) (Auto) 68.1 % Lymphocytes (%) (Auto) 14.7 % Monocytes (%) (Auto) 8.9 % Eosinophils (%) (Auto) 7.2 % Basophils (%) (Auto) 0.4 % Neutrophils # (Auto) 6.52 1.4-6.5 K/uL Lymphocytes # (Auto) 1.41 1.2-3.4 K/uL Monocytes # (Auto) 0.85 0.11-0.59 K/uL Eosinophils # (Auto) 0.69 0-0.5 K/uL Basophils # (Auto) 0.04 0-0.2 K/uL RDW Standard Deviation 42.3 36.4-46.3 fL RDW Coefficient of Variation 11.9 11.5-14.5 % Immature Granulocyte % (Auto) 0.7 % Immature Granulocyte # (Auto) 0.07 0.00-0.02 K/uL Sodium Level 137 136-145 mmol/L Potassium Level 3.9 3.5-5.1 mmol/L Chloride Level 102 98-107 mmol/L Carbon Dioxide Level 29 21-32 mmol/L Anion Gap 6.0 3-11 mmol/L Blood Urea Nitrogen 15 7-18 mg/dl Creatinine 0.53 0.60-1.20 mg/dl Est Creatinine Clear Calc Drug Dose 82.1 ml/min Estimated GFR () 119.6 Estimated GFR (Non- 103.2 BUN/Creatinine Ratio 28.6 10-20 Random Glucose 112 70-99 mg/dl Calcium Level 8.7 8.5-10.1 mg/dl Phosphorus Level 3.5 2.5-4.9 mg/dl Magnesium Level 2.2 1.8-2.4 mg/dl Total Bilirubin 0.3 0.2-1 mg/dl Aspartate Amino Transf (AST/SGOT) 41 15-37 U/L Alanine Aminotransferase (ALT/SGPT) 29 12-78 U/L Alkaline Phosphatase 93 45-117 U/L Total Protein 6.3 6.4-8.2 gm/dl Albumin 2.8 3.4-5.0 gm/dl Globulin 3.5 2.5-4.0 gm/dl Albumin/Globulin Ratio 0.8 0.9-2 Assessment & Plan s/p release SBO awaiting bowel fx NGT output scant- suspect may be the etiology of her "reflux". will d/c ngt and give some tums. sips clears non-distended increase activity
[2017-08-11] MEDS ORDERED: CALCIUM CARBONATE 500 MG CHEWABLE PO PRN (08:45)
[2017-08-11] MEDS: SUCRALFATE 1 GM/10 ML UDC PO SCH ×4 (09:00→21:15)
[2017-08-11] MEDS: HEPARIN SOD 5000 UNIT/0.5 ML CARP SQ SCH ×2 (09:03→20:07)
[2017-08-11 11:08] VITALS: BP 128/83; PULSE 97; O2SAT 99
--- NOTE | 2017-08-11 13:38 | Progress Note ---
Subjective Date of Service: Aug 11, 2017. Subjective Pt evaluation today including: conversation w/ patient, physical exam, chart review, lab review, conversation w/ analysis consultant Problem List Medical Problems: (1) Central abdominal pain Status: Acute (2) Nausea Status: Acute (3) Small bowel obstruction Status: Acute Review of Systems Constitutional: No see HPI, No fever, No chills, No sweats, No weight loss, No weakness, No fatigue, No problem reported Eyes: No see HPI, No worsening of vision, No eye pain, No redness, No discharge , No diplopia, No problem reported ENT: No see HPI, No hearing loss, No unusual epistaxis, No nasal symptoms, No sore throat, No tinnitus, No dental problems, No trouble swallowing, No problem reported Respiratory: No see HPI, No cough, No sputum, No wheezing, No shortness of breath, No dyspnea on exertion, No dyspnea at rest, No hemoptysis, No problem reported Cardiac: No see HPI, No chest pain, No orthopnea, No PND, No edema, No claudication, No palpitations, No problem reported Abdomen: + pain, No see HPI, No nausea, No vomiting, No diarrhea, No constipation, No GI bleeding, No problem reported Musculoskeletal: No see HPI, No joint pain, No muscle pain, No swelling, No calf pain, No problem reported Female : No see HPI, No dysuria, No urinary frequency, No hematuria, No incontinence, No abnormal vaginal bleeding, No vaginal discharge, No problem reported Neurologic: No see HPI, No memory loss, No paralysis, No weakness, No numbness/ tingling, No vertigo, No balance problems, No problem reported Psychiatric: No see HPI, No depression symptoms, No anhedonism, No anxiety, No insomnia, No substance abuse, No problem reported Heme: No see HPI, No abnormal bleeding/bruising, No clotting problems, No swollen lymph nodes, No night sweats, No problem reported Endo: No see HPI, No fatigue, No excessive thirst, No excessive urination, No problem reported Skin: No see HPI, No rash, No itch, No new/changing skin lesions, No color change, No bleeding, No problem reported Objective Vital Signs Date Time Temp Pulse Resp B/P (MAP) Pulse Ox O2 Delivery O2 Flow Rate FiO2 08/11/17 11:08 97 16 128/83 (98) 99 Room Air 08/11/17 10:59 Room Air 08/11/17 07:08 36.7 111 17 132/81 (98) 100 Room Air 08/11/17 03:38 36.9 99 16 116/76 (89) 96 Room Air 08/10/17 23:37 Room Air 08/10/17 23:30 36.9 108 16 128/77 (94) 95 Room Air 08/10/17 20:37 37.5 97 18 124/78 (93) 95 Room Air 08/10/17 15:15 Room Air 08/10/17 15:10 37.2 98 16 128/78 (95) 95 Room Air Physical Exam General Appearance: WD/WN, no apparent distress Eyes: normal inspection, EOMI ENT: normal ENT inspection, hearing grossly normal Neck: supple Respiratory/Chest: chest non-tender, lungs clear, normal breath sounds, no respiratory distress, no accessory muscle use Cardiovascular: regular rate, rhythm, no edema, no gallop, no JVD, no murmur Abdomen: soft, + distended, + tenderness Extremities: normal range of motion, non-tender, normal inspection, no pedal edema, no calf tenderness Neurologic/Psychiatric: river captain II-XII nml as tested, no motor/sensory deficits, alert, normal mood/affect, oriented x 3 Skin: normal color, warm/dry, no rash Laboratory Results Last 24 Hours Test 08/10/17 17:57 08/10/17 23:28 08/11/17 05:40 08/11/17 05:51 Bedside Glucose 103 mg/dl 106 mg/dl 104 mg/dl White Blood Count 9.58 K/uL Red Blood Count 3.36 M/uL Hemoglobin 11.0 g/dL Hematocrit 32.5 % Mean Corpuscular Volume 96.7 fL Mean Corpuscular Hemoglobin 32.7 pg Mean Corpuscular Hemoglobin Concent 33.8 g/dl Platelet Count 342 K/uL Mean Platelet Volume 9.2 fL Neutrophils (%) (Auto) 68.1 % Lymphocytes (%) (Auto) 14.7 % Monocytes (%) (Auto) 8.9 % Eosinophils (%) (Auto) 7.2 % Basophils (%) (Auto) 0.4 % Neutrophils # (Auto) 6.52 K/uL Lymphocytes # (Auto) 1.41 K/uL Monocytes # (Auto) 0.85 K/uL Eosinophils # (Auto) 0.69 K/uL Basophils # (Auto) 0.04 K/uL RDW Standard Deviation 42.3 fL RDW Coefficient of Variation 11.9 % Immature Granulocyte % (Auto) 0.7 % Immature Granulocyte # (Auto) 0.07 K/uL Sodium Level 137 mmol/L Potassium Level 3.9 mmol/L Chloride Level 102 mmol/L Carbon Dioxide Level 29 mmol/L Anion Gap 6.0 mmol/L Blood Urea Nitrogen 15 mg/dl Creatinine 0.53 mg/dl Est Creatinine Clear Calc Drug Dose 82.1 ml/min Estimated GFR () 119.6 Estimated GFR (Non- 103.2 BUN/Creatinine Ratio 28.6 Random Glucose 112 mg/dl Calcium Level 8.7 mg/dl Phosphorus Level 3.5 mg/dl Magnesium Level 2.2 mg/dl Total Bilirubin 0.3 mg/dl Aspartate Amino Transf (AST/SGOT) 41 U/L Alanine Aminotransferase (ALT/SGPT) 29 U/L Alkaline Phosphatase 93 U/L Total Protein 6.3 gm/dl Albumin 2.8 gm/dl Globulin 3.5 gm/dl Albumin/Globulin Ratio 0.8 Assessment and Plan 61 years old female with past medical history of ischemic colitis is status post colon resection presented to the ED with intestinal obstruction Assessment: abdominal pain secondary to below Intestinal obstruction secondary to adhesions Decrease oral intake Electrolyte imbalance fibromyalgia Hyperlipidemia Plan: abdominal pain improving, best guess 1 today s/p laparotomy, lysis of adhesions, closure internal hernia 08/06 rarely today uses CASH MANAGER pump Currently nothing by mouth, but today nasogastric tube was discontinued and patient was allowed to take sips of water Pharmacy ordering TPN Heparin for DVT prophylaxis follow up electrolytes in a.m.
[2017-08-11] MEDS: SODIUM CHLORIDE 0.9% 1000ML 1,000 ML IV SCH ×2 (13:50→21:15)
[2017-08-11 15:53] VITALS: BP 113/71; PULSE 98; TEMP 36.7; O2SAT 99
[2017-08-11] MEDS ORDERED: CUSTOM CENTRAL PN 1 BAG IV SCH (16:00)
[2017-08-11] MEDS: LORAZEPAM INJ 0.5 MG in SYRINGE 0.25 ML IV PRN (21:15)
[2017-08-11] MEDS: PANTOprazole INJ 40 MG in SYRINGE 0 ML IV SCH (21:15)
[2017-08-11 23:00] VITALS: BP 115/77; PULSE 106; TEMP 37.1; O2SAT 96
[2017-08-12] MEDS: CEFOXITIN IV 1,000 MG in DEXTROSE 5% 50ML 50 ML IV SCH ×3 (01:53→18:00)
[2017-08-12 03:09] VITALS: BP 107/73; PULSE 99; TEMP 36.5; O2SAT 97
[2017-08-12 06:42] LABS: BUN/CREATININE RATIO 26.1 (10-20); CALCIUM 8.4 mg/dl (8.5-10.1); CREATININE 0.51 mg/dl (0.60-1.20); MAGNESIUM 2.1 mg/dl (1.8-2.4); PHOSPHORUS 3.1 mg/dl (2.5-4.9); POTASSIUM 3.6 mmol/L (3.5-5.1)
[2017-08-12 06:57] VITALS: BP 125/74; PULSE 101; TEMP 36.8; O2SAT 96
[2017-08-12] MEDS: HYDROmorphone HCL 0.5MG/ML 50 ML CASSETTE IV PRN ×4 (07:05→22:54)
[2017-08-12] MEDS: SUCRALFATE 1 GM/10 ML UDC PO SCH ×4 (08:45→20:50)
[2017-08-12] MEDS: PANTOprazole INJ 40 MG in SYRINGE 0 ML IV SCH (08:45)
[2017-08-12] MEDS: HEPARIN SOD 5000 UNIT/0.5 ML CARP SQ SCH ×2 (08:47→20:52)
[2017-08-12] MEDS ORDERED: NURSING VERBAL MED ORDER ONE (09:00)
--- NOTE | 2017-08-12 10:06 | Surgery Progress Note ---
Surgery Progress Note Date of Service Aug 12, 2017. Subjective feeling much better. gerd better since removing ngt. +BM's ( loose). Objective Vital Signs: Date Time Temp Pulse Resp B/P (MAP) Pulse Ox O2 Delivery O2 Flow Rate FiO2 08/12/17 07:25 Room Air 08/12/17 06:57 36.8 101 19 125/74 (91) 96 Room Air 08/12/17 03:09 36.5 99 16 107/73 (84) 97 Room Air 08/11/17 23:47 Room Air 08/11/17 23:00 37.1 106 16 115/77 (90) 96 Room Air 08/11/17 15:53 36.7 98 17 113/71 (85) 99 Room Air 08/11/17 15:40 Room Air 08/11/17 11:08 97 16 128/83 (98) 99 Room Air 08/11/17 10:59 Room Air General Appearance: no apparent distress Abdomen: non tender, non distended, soft Incision(s): clean, dry, intact Laboratory Results: Results Past 24 Hours Test 08/11/17 12:09 08/11/17 18:14 08/12/17 00:05 08/12/17 05:35 Range/Units Bedside Glucose 103 112 113 70-90 mg/dl Sodium Level 140 136-145 mmol/L Potassium Level 3.6 3.5-5.1 mmol/L Chloride Level 105 98-107 mmol/L Carbon Dioxide Level 27 21-32 mmol/L Anion Gap 8.0 3-11 mmol/L Blood Urea Nitrogen 13 7-18 mg/dl Creatinine 0.51 0.60-1.20 mg/dl Est Creatinine Clear Calc Drug Dose 86.1 ml/min Estimated GFR () 121.1 Estimated GFR (Non- 104.5 BUN/Creatinine Ratio 26.1 10-20 Random Glucose 105 70-99 mg/dl Calcium Level 8.4 8.5-10.1 mg/dl Phosphorus Level 3.1 2.5-4.9 mg/dl Magnesium Level 2.1 1.8-2.4 mg/dl Test 08/12/17 05:49 08/12/17 07:58 Range/Units Bedside Glucose 103 119 70-90 mg/dl Assessment & Plan 08/12/17 doing much better +bowel fx will try full liquids today can prob d/c TPN after today 08/11/17 s/p release SBO awaiting bowel fx NGT output scant- suspect may be the etiology of her "reflux". will d/c ngt and give some tums. sips clears non-distended increase activity s/p release SBO awaiting bowel fx NGT output scant- suspect may be the etiology of her "reflux". will d/c ngt and give some tums. sips clears non-distended increase activity
--- NOTE | 2017-08-12 13:02 | Progress Note ---
Subjective Date of Service: Aug 12, 2017. Subjective Pt evaluation today including: conversation w/ patient, conversation w/ family , physical exam, lab review, review of inpatient medication list Problem List Medical Problems: (1) Central abdominal pain Status: Acute (2) Nausea Status: Acute (3) Small bowel obstruction Status: Acute Review of Systems Constitutional: No see HPI, No fever, No chills, No sweats, No weight loss, No weakness, No fatigue, No problem reported Eyes: No see HPI, No worsening of vision, No eye pain, No redness, No discharge , No diplopia, No problem reported ENT: No see HPI, No hearing loss, No unusual epistaxis, No nasal symptoms, No sore throat, No tinnitus, No dental problems, No trouble swallowing, No problem reported Respiratory: No see HPI, No cough, No sputum, No wheezing, No shortness of breath, No dyspnea on exertion, No dyspnea at rest, No hemoptysis, No problem reported Cardiac: No see HPI, No chest pain, No orthopnea, No PND, No edema, No claudication, No palpitations, No problem reported Abdomen: + pain, No see HPI, No nausea, No vomiting, No diarrhea, No constipation, No GI bleeding, No problem reported Musculoskeletal: No see HPI, No joint pain, No muscle pain, No swelling, No calf pain, No problem reported Neurologic: No see HPI, No memory loss, No paralysis, No weakness, No numbness/ tingling, No vertigo, No balance problems, No problem reported Psychiatric: No see HPI, No depression symptoms, No anhedonism, No anxiety, No insomnia, No substance abuse, No problem reported Heme: No see HPI, No abnormal bleeding/bruising, No clotting problems, No swollen lymph nodes, No night sweats, No problem reported Endo: No see HPI, No fatigue, No excessive thirst, No excessive urination, No problem reported Skin: No see HPI, No rash, No itch, No new/changing skin lesions, No color change, No bleeding, No problem reported Objective Vital Signs Date Time Temp Pulse Resp B/P (MAP) Pulse Ox O2 Delivery O2 Flow Rate FiO2 08/12/17 07:25 Room Air 08/12/17 06:57 36.8 101 19 125/74 (91) 96 Room Air 08/12/17 03:09 36.5 99 16 107/73 (84) 97 Room Air 08/11/17 23:47 Room Air 08/11/17 23:00 37.1 106 16 115/77 (90) 96 Room Air 08/11/17 15:53 36.7 98 17 113/71 (85) 99 Room Air 08/11/17 15:40 Room Air Physical Exam General Appearance: WD/WN, no apparent distress Eyes: normal inspection, EOMI ENT: normal ENT inspection, hearing grossly normal Neck: supple Respiratory/Chest: chest non-tender, lungs clear, normal breath sounds, no respiratory distress, no accessory muscle use Cardiovascular: regular rate, rhythm, no edema, no gallop, no JVD, no murmur Abdomen: + distended, + tenderness Extremities: normal range of motion, non-tender, normal inspection, no pedal edema Neurologic/Psychiatric: protection engineer II-XII nml as tested, no motor/sensory deficits, alert, normal mood/affect, oriented x 3 Skin: normal color, warm/dry, no rash Laboratory Results Last 24 Hours Test 08/11/17 18:14 08/12/17 00:05 08/12/17 05:35 08/12/17 05:49 Bedside Glucose 112 mg/dl 113 mg/dl 103 mg/dl Sodium Level 140 mmol/L Potassium Level 3.6 mmol/L Chloride Level 105 mmol/L Carbon Dioxide Level 27 mmol/L Anion Gap 8.0 mmol/L Blood Urea Nitrogen 13 mg/dl Creatinine 0.51 mg/dl Est Creatinine Clear Calc Drug Dose 86.1 ml/min Estimated GFR () 121.1 Estimated GFR (Non- 104.5 BUN/Creatinine Ratio 26.1 Random Glucose 105 mg/dl Calcium Level 8.4 mg/dl Phosphorus Level 3.1 mg/dl Magnesium Level 2.1 mg/dl Test 08/12/17 07:58 08/12/17 12:11 Bedside Glucose 119 mg/dl 104 mg/dl Assessment and Plan 61 years old female with past medical history of ischemic colitis is status post colon resection presented to the ED with intestinal obstruction Assessment: abdominal pain secondary to below Intestinal obstruction secondary to adhesions Decrease oral intake Electrolyte imbalance fibromyalgia Hyperlipidemia Plan: abdominal pain improving, she had a bowel movement today Nasogastric tube was discontinued yesterday She was started on full liquid diet today s/p laparotomy, lysis of adhesions, closure internal hernia 08/06 rarely today uses FREIGHT AGENT pump Pharmacy ordering TPN, suggest to continue parenteral nutrition until we make sure she tolerated oral intake Heparin for DVT prophylaxis follow up electrolytes in a.m.
[2017-08-12] MEDS ORDERED: CUSTOM CENTRAL PN 1 BAG IV SCH (16:00)
[2017-08-12 16:36] VITALS: BP 138/81; PULSE 97; TEMP 37.7; O2SAT 97
[2017-08-12] MEDS: PANTOprazole SOD 40 MG TAB PO SCH (20:50)
[2017-08-12] MEDS: LORAZEPAM INJ 0.5 MG in SYRINGE 0.25 ML IV PRN (21:33)
[2017-08-12 22:45] VITALS: BP 114/77; PULSE 114; TEMP 36.5; O2SAT 100
[2017-08-13] VITALS (8 sets, daily range): BP systolic 122–133; BP diastolic 71–84; PULSE 90–112; TEMP 36.6–37.4; O2SAT 97–99
[2017-08-13] MEDS: CEFOXITIN IV 1,000 MG in DEXTROSE 5% 50ML 50 ML IV SCH (02:38)
[2017-08-13 06:14] LABS: BASO % 0.3 %; BASO ABS # 0.04 K/uL (0-0.2); COMPLETE YES; EOS % 10.8 %; HEMATOCRIT 27.9 % (37-47); IG% 1.7 %; LYMPH ABS # 2.09 K/uL (1.2-3.4); MEAN CELL VOLUME 97.2 fL (80-100); MEAN CORPUSCULAR HEMOGLOBIN 34.1 pg (25-34); MEAN CORPUSCULAR HGB CONC 35.1 g/dl (32-36); MEAN PLATELET VOLUME 9.3 fL (7.4-10.4); NEUT % 62.2 %; PLATELET COUNT 359 K/uL (130-400); RED BLOOD COUNT 2.87 M/uL (4.2-5.4); WHITE BLOOD COUNT 12.26 K/uL (4.8-10.8)
--- NOTE | 2017-08-13 06:34 | Surgery Progress Note ---
Surgery Progress Note Date of Service Aug 13, 2017. Subjective some pain- using dilaudid DUKEY RIDER rasheed some full liq, + bm, some reflux Objective Vital Signs: Date Time Temp Pulse Resp B/P (MAP) Pulse Ox O2 Delivery O2 Flow Rate FiO2 08/13/17 03:19 36.8 112 16 133/82 (99) 97 Room Air 08/13/17 00:25 Room Air 08/13/17 00:25 98 08/12/17 22:45 36.5 114 16 114/77 (89) 100 Room Air 08/12/17 20:14 Room Air 08/12/17 16:36 37.7 97 16 138/81 (100) 97 Room Air 08/12/17 16:07 Room Air 08/12/17 07:25 Room Air 08/12/17 06:57 36.8 101 19 125/74 (91) 96 Room Air General Appearance: no apparent distress Respiratory/Chest: no respiratory distress Abdomen: + distended Incision(s): intact, findings (no erythema) Laboratory Results: Results Past 24 Hours Test 08/12/17 07:58 08/12/17 12:11 08/12/17 21:05 08/13/17 05:40 Range/Units Bedside Glucose 119 104 106 70-90 mg/dl White Blood Count 12.26 4.8-10.8 K/uL Red Blood Count 2.87 4.2-5.4 M/uL Hemoglobin 9.8 12.0-16.0 g/dL Hematocrit 27.9 37-47 % Mean Corpuscular Volume 97.2 80-100 fL Mean Corpuscular Hemoglobin 34.1 25-34 pg Mean Corpuscular Hemoglobin Concent 35.1 32-36 g/dl Platelet Count 359 130-400 K/uL Mean Platelet Volume 9.3 7.4-10.4 fL Neutrophils (%) (Auto) 62.2 % Lymphocytes (%) (Auto) 17.0 % Monocytes (%) (Auto) 8.0 % Eosinophils (%) (Auto) 10.8 % Basophils (%) (Auto) 0.3 % Neutrophils # (Auto) 7.62 1.4-6.5 K/uL Lymphocytes # (Auto) 2.09 1.2-3.4 K/uL Monocytes # (Auto) 0.98 0.11-0.59 K/uL Eosinophils # (Auto) 1.32 0-0.5 K/uL Basophils # (Auto) 0.04 0-0.2 K/uL RDW Standard Deviation 44.8 36.4-46.3 fL RDW Coefficient of Variation 12.7 11.5-14.5 % Immature Granulocyte % (Auto) 1.7 % Immature Granulocyte # (Auto) 0.21 0.00-0.02 K/uL Assessment & Plan 08/13/17- doing better than expected- adv diet slowly- low fiber later today, add senna syrup, cont TPN 1 more day, leave picc line stop atbx, chg to lovenox daily. work on transition to po pain meds- ask pain mgt for help 08/09/17- bringing patch from home, cont NG, link today IV atbx, TPN to begin later today- expect GI dysfunction for several days- try to mobilize 08/08/17- no acute chgs- cont IV, NG , DUKEY RIDER- suspect ileus will persist may need TPN/Picc - and pain control will likely be difficult- she didn't want to talk to Dr White yest- try to mobilize 08/07/17- s/p laparotomy, lysis of adhesions, closure internal hernia pain control difficult- on chr pain meds- ask pain mgt to help will have ileus for days likely- NPO, try to mobilize 08/06/17- slight improvement with NG- plan for surgery today- laparotomy, lysis of adhesions, possible bowel resection 08/09/17- bringing patch from home, cont NG, link today IV atbx, TPN to begin later today- expect GI dysfunction for several days- try to mobilize 08/08/17- no acute chgs- cont IV, NG , DUKEY RIDER- suspect ileus will persist may need TPN/Picc - and pain control will likely be difficult- she didn't want to talk to Dr White yest- try to mobilize 08/07/17- s/p laparotomy, lysis of adhesions, closure internal hernia pain control difficult- on chr pain meds- ask pain mgt to help will have ileus for days likely- NPO, try to mobilize 08/06/17- slight improvement with NG- plan for surgery today- laparotomy, lysis of adhesions, possible bowel resection
[2017-08-13 06:44] LABS: BUN/CREATININE RATIO 22.5 (10-20); CALCIUM 8.3 mg/dl (8.5-10.1); CREATININE 0.56 mg/dl (0.60-1.20); MAGNESIUM 2.3 mg/dl (1.8-2.4); PHOSPHORUS 3.7 mg/dl (2.5-4.9); POTASSIUM 4.2 mmol/L (3.5-5.1)
[2017-08-13] MEDS: HYDROmorphone HCL 0.5MG/ML 50 ML CASSETTE IV PRN ×3 (07:00→23:20)
[2017-08-13] MEDS: SUCRALFATE 1 GM/10 ML UDC PO SCH ×3 (09:02→16:30)
[2017-08-13] MEDS: PANTOprazole SOD 40 MG TAB PO SCH ×2 (09:02→20:58)
[2017-08-13] MEDS: SENNA 8.8 MG/5 ML UDP PO SCH ×2 (09:05→20:58)
[2017-08-13] MEDS: ENOXAPARIN 40 MG/0.4 ML SYR SQ SCH (09:06)
[2017-08-13] MEDS: SODIUM CHLORIDE 0.9% 1000ML 1,000 ML IV SCH (15:12)
[2017-08-13] MEDS ORDERED: CUSTOM CENTRAL PN 1 BAG IV SCH (16:00)
--- NOTE | 2017-08-13 21:42 | Progress Note ---
Subjective Date of Service: Aug 13, 2017. Subjective Pt evaluation today including: conversation w/ patient, physical exam, chart review, lab review Patient reports feeling better today. Patient reports being hungry and would like her diet advanced. Patient reports tolerating full liquid diet. Problem List Medical Problems: (1) Central abdominal pain Status: Acute (2) Nausea Status: Acute (3) Small bowel obstruction Status: Acute Review of Systems Constitutional: No fever, No chills Respiratory: No cough, No sputum Cardiac: No chest pain, No orthopnea Abdomen: No pain, No nausea Musculoskeletal: No joint pain Neurologic: No memory loss, No paralysis Psychiatric: No depression symptoms, No anhedonism Heme: + abnormal bleeding/bruising Endo: No fatigue Skin: No rash, No itch All Other Systems: Reviewed and Negative Medications Current Inpatient Medications Medications (Trade) Dose Ordered Sig/Dereck Route Start Time Stop Time Status Last Admin Dose Admin Promethazine HCl 25 mg/Sodium Chloride 51 ml @ 204 mls/hr Q6H PRN IV 08/06/17 01:30 09/05/17 01:29 Ondansetron HCl (Zofran Inj) 4 mg Q6H PRN IV 08/06/17 01:30 09/05/17 01:29 08/11/17 02:41 4 MG Lorazepam 0.5 mg/ Syringe 0.5 ml @ 0.5 mls/min Q6 PRN IV 08/06/17 01:45 09/05/17 01:44 08/12/17 21:33 0.5 MLS/MIN Promethazine HCl 12.5 mg/Sodium Chloride 50.5 ml @ 204 mls/hr Q6H PRN IV 08/06/17 04:00 09/05/17 03:59 Heparin Sodium (Porcine) (Heparin 10 Unit/ ml 5 ml Flush) 5 ml PRN PRN FLUSH 08/08/17 12:30 09/07/17 12:29 08/14/17 06:45 5 ML Dextrose 1,000 ml @ 0 mls/hr Q0M PRN IV 08/08/17 15:09 08/14/17 13:59 Miscellaneous Information (Pharmacy Tpn/ Ppn Consult Active) 1 ea UD PRN N/A 08/08/17 15:15 08/14/17 13:59 Buprenorphine HCl (Butrans Patch) 10 mcg We@2000 TD 08/09/17 19:20 09/08/17 19:19 08/09/17 20:16 10 MCG Buprenorphine HCl (Butrans Patch) 10 mcg Q7D TD 08/15/17 10:00 09/14/17 09:59 Calcium Carbonate (Tums Chew Tab) 500 mg Q4 PRN PO 08/11/17 08:45 09/10/17 08:44 08/11/17 11:14 500 MG Pantoprazole Sodium (Protonix Tab) 40 mg BID PO 08/12/17 21:00 09/11/17 20:59 08/13/17 20:58 40 MG Enoxaparin Sodium (Lovenox Inj) 40 mg QAM SQ 08/13/17 09:00 09/12/17 08:59 08/13/17 09:06 40 MG Senna (Senokot Syrup) 8.8 mg BID PO 08/13/17 09:00 09/12/17 08:59 08/13/17 20:58 8.8 MG Nutrition (Parenteral) 0 ml @ 0 mls/hr TODAY@1600 IV 08/13/17 16:00 08/14/17 16:00 08/13/17 16:29 50 MLS/HR Hydromorphone HCl (Dilaudid Inj) 0.5 mg Q3H PRN IV 08/14/17 06:15 08/28/17 06:14 Hydromorphone HCl (Dilaudid Inj) 1 mg Q3H PRN IV 08/14/17 06:15 08/28/17 06:14 Enteral Nutritional Formula (Boost) 1 can DAILY PO 08/14/17 09:00 09/13/17 08:59 Objective Vital Signs Date Time Temp Pulse Resp B/P (MAP) Pulse Ox O2 Delivery O2 Flow Rate FiO2 08/13/17 19:21 99 Room Air 08/13/17 19:05 37.4 90 20 122/78 (93) 99 Room Air 08/13/17 16:20 Room Air 08/13/17 15:27 37.2 93 16 127/71 (89) 99 Room Air 08/13/17 11:03 36.6 95 18 130/84 (99) 98 Room Air 08/13/17 07:30 Room Air 08/13/17 07:01 37.2 109 18 133/82 (99) 99 Room Air 08/13/17 03:19 36.8 112 16 133/82 (99) 97 Room Air 08/13/17 00:25 Room Air 08/13/17 00:25 98 08/12/17 22:45 36.5 114 16 114/77 (89) 100 Room Air Physical Exam Comments: General Appearance: WD/WN, no apparent distress Eyes: normal inspection, EOMI ENT: normal ENT inspection, hearing grossly normal Neck: supple Respiratory/Chest: chest non-tender, lungs clear, normal breath sounds, no respiratory distress, no accessory muscle use Cardiovascular: regular rate, rhythm, no edema, no gallop, no JVD, no murmur Abdomen: + distended, no tenderness Extremities: normal range of motion, non-tender, normal inspection, no pedal edema Neurologic/Psychiatric: crt II-XII nml as tested, no motor/sensory deficits, alert, normal mood/affect, oriented x 3 Skin: normal color, warm/dry, no rash Laboratory Results Last 24 Hours Test 08/13/17 05:40 White Blood Count 12.26 K/uL Red Blood Count 2.87 M/uL Hemoglobin 9.8 g/dL Hematocrit 27.9 % Mean Corpuscular Volume 97.2 fL Mean Corpuscular Hemoglobin 34.1 pg Mean Corpuscular Hemoglobin Concent 35.1 g/dl Platelet Count 359 K/uL Mean Platelet Volume 9.3 fL Neutrophils (%) (Auto) 62.2 % Lymphocytes (%) (Auto) 17.0 % Monocytes (%) (Auto) 8.0 % Eosinophils (%) (Auto) 10.8 % Basophils (%) (Auto) 0.3 % Neutrophils # (Auto) 7.62 K/uL Lymphocytes # (Auto) 2.09 K/uL Monocytes # (Auto) 0.98 K/uL Eosinophils # (Auto) 1.32 K/uL Basophils # (Auto) 0.04 K/uL RDW Standard Deviation 44.8 fL RDW Coefficient of Variation 12.7 % Immature Granulocyte % (Auto) 1.7 % Immature Granulocyte # (Auto) 0.21 K/uL Sodium Level 139 mmol/L Potassium Level 4.2 mmol/L Chloride Level 107 mmol/L Carbon Dioxide Level 26 mmol/L Anion Gap 6.0 mmol/L Blood Urea Nitrogen 13 mg/dl Creatinine 0.56 mg/dl Est Creatinine Clear Calc Drug Dose 78.4 ml/min Estimated GFR () 117.5 Estimated GFR (Non- 101.3 BUN/Creatinine Ratio 22.5 Random Glucose 105 mg/dl Calcium Level 8.3 mg/dl Phosphorus Level 3.7 mg/dl Magnesium Level 2.3 mg/dl Assessment and Plan 61 years old female with past medical history of ischemic colitis is status post colon resection presented to the ED with intestinal obstruction Assessment: abdominal pain secondary to below Intestinal obstruction secondary to adhesions Decrease oral intake Electrolyte imbalance fibromyalgia Hyperlipidemia Plan: abdominal pain improving, she had a bowel movement today Nasogastric tube was discontinued 2 days ago. She was started on full liquid diet yesterday s/p laparotomy, lysis of adhesions, closure internal hernia 08/06 rarely today uses FLAT MACHINE CUTTER pump Pharmacy ordering TPN, suggest to continue parenteral nutrition until we make sure she tolerated oral intake Heparin for DVT prophylaxis follow up electrolytes in a.m.
[2017-08-14 04:00] VITALS: BP 150/83; PULSE 98; TEMP 37.1; O2SAT 100
[2017-08-14] MEDS ORDERED: HYDROmorphone INJ 1 MG/ML SYR IV PRN (06:15)
[2017-08-14] MEDS ORDERED: HYDROmorphone INJ 0.5 MG/0.5 ML SYR IV PRN (06:15)
--- NOTE | 2017-08-14 06:28 | Surgery Progress Note ---
Surgery Progress Note Date of Service Aug 14, 2017. Subjective tolerating low fiber diet- no bm since yest, positive flatus still with dilaudid lap winder, tpn Objective Vital Signs: Date Time Temp Pulse Resp B/P (MAP) Pulse Ox O2 Delivery O2 Flow Rate FiO2 08/14/17 04:00 37.1 98 16 150/83 (105) 100 Room Air 08/13/17 23:30 Room Air 08/13/17 22:50 37.1 91 16 128/76 (93) 97 Room Air 08/13/17 19:21 99 Room Air 08/13/17 19:05 37.4 90 20 122/78 (93) 99 Room Air 08/13/17 16:20 Room Air 08/13/17 15:27 37.2 93 16 127/71 (89) 99 Room Air 08/13/17 11:03 36.6 95 18 130/84 (99) 98 Room Air 08/13/17 07:30 Room Air 08/13/17 07:01 37.2 109 18 133/82 (99) 99 Room Air General Appearance: no apparent distress Respiratory/Chest: no respiratory distress Abdomen: soft, + pertinent finding (has bowel sounds) Incision(s): intact Assessment & Plan 08/14/17- cont low fiber diet, she asked for boost, d/c tpn after current bag. Stop PSYCHIATRIC SPECIALIST- order prn dilaudid and pain mgt to help with po meds pt on chronic Vicodin at home as well as narcan patch. possible d/c later this week- ask GI for suggestions- 08/13/17- doing better than expected- adv diet slowly- low fiber later today, add senna syrup, cont TPN 1 more day, leave picc line stop atbx, chg to lovenox daily. work on transition to po pain meds- ask pain mgt for help 08/09/17- bringing patch from home, cont NG, link today IV atbx, TPN to begin later today- expect GI dysfunction for several days- try to mobilize 08/08/17- no acute chgs- cont IV, NG , PSYCHIATRIC SPECIALIST- suspect ileus will persist may need TPN/Picc - and pain control will likely be difficult- she didn't want to talk to Dr White yest- try to mobilize 08/07/17- s/p laparotomy, lysis of adhesions, closure internal hernia pain control difficult- on chr pain meds- ask pain mgt to help will have ileus for days likely- NPO, try to mobilize 08/06/17- slight improvement with NG- plan for surgery today- laparotomy, lysis of adhesions, possible bowel resection 08/13/17- doing better than expected- adv diet slowly- low fiber later today, add senna syrup, cont TPN 1 more day, leave picc line stop atbx, chg to lovenox daily. work on transition to po pain meds- ask pain mgt for help 08/09/17- bringing patch from home, cont NG, link today IV atbx, TPN to begin later today- expect GI dysfunction for several days- try to mobilize 08/08/17- no acute chgs- cont IV, NG , PSYCHIATRIC SPECIALIST- suspect ileus will persist may need TPN/Picc - and pain control will likely be difficult- she didn't want to talk to Dr White yest- try to mobilize 08/07/17- s/p laparotomy, lysis of adhesions, closure internal hernia pain control difficult- on chr pain meds- ask pain mgt to help will have ileus for days likely- NPO, try to mobilize 08/06/17- slight improvement with NG- plan for surgery today- laparotomy, lysis of adhesions, possible bowel resection
[2017-08-14] MEDS ORDERED: MINERAL OIL 30 ML UDC PO ONE (06:30)
[2017-08-14 06:51] VITALS: BP 110/72; PULSE 89; TEMP 37.2; O2SAT 99
[2017-08-14 07:45] VITALS: O2SAT 99
--- NOTE | 2017-08-14 09:20 | Pain Management Progress Note ---
Pain Management Progress Note Date of Service Aug 14, 2017. Subjective Patient has chronic abdominal pain status post history of multiple intra- abdominal surgeries most recently laparotomy with extensive lysis of adhesions and closure of internal hernia. Patient reports chronic use of hydrocodone in the outpatient setting. She was being transitioned off of hydrocodone one to Butrans patch. She has resumed intake of oral medications over the past few days. Surgery service is requesting our input regarding transitioning her to oral analgesics at this time in conjunction with her ongoing use of the Butrans patch. She indicates that her abdominal pain is fairly constant and generalized without localization. She denies any significant change in the abdominal discomfort with dietary intake. She rates her pain at a 0-6/10. She denies change in location or characteristic of her chronic complaints at this time. She has no further constitutional complaints. Objective Vital Signs: Last Vital Signs Documentation Date Time Temp Pulse Resp B/P (MAP) Pulse Ox O2 Delivery O2 Flow Rate FiO2 08/14/17 07:45 99 Room Air 08/14/17 06:51 37.2 89 17 110/72 (85) 08/06/17 19:20 4.0 Physical Exam: Gen.: Patient sitting up upon entering the room in no acute distress. Patient is thin and frail and physical appearance. Mood and affect are flat. Cognition intact. Abdomen: Soft and nondistended. Minimal tenderness to palpation without rebound or guarding. Neurologic: Cranial nerves grossly intact. Ambulatory function not witnessed. Laboratory Laboratory Review: results personally reviewed by me Laboratory Findings 08/13/17 05:40 Red Blood Count 2.87 L, Mean Corpuscular Volume 97.2, Mean Corpuscular Hemoglobin 34.1 H, Mean Corpuscular Hemoglobin Concent 35.1, Mean Platelet Volume 9.3, Neutrophils (%) (Auto) 62.2, Lymphocytes (%) (Auto) 17.0, Monocytes (%) (Auto) 8.0, Eosinophils (%) (Auto) 10.8, Basophils (%) (Auto) 0.3, Neutrophils # (Auto) 7.62 H, Lymphocytes # (Auto) 2.09, Monocytes # (Auto) 0.98 H, Eosinophils # (Auto) 1.32 H, Basophils # (Auto) 0.04 Assessment 1. Chronic abdominal pain with history of ischemic colitis status post colon resection and recent laparotomy with lysis of adhesions 2. Chronic opioid dependency 3. History of fibromyalgia Recommendations 1. Recommend maintaining Butrans patch at 10 g every 72 days 2. Will initiate Nucynta 50 mg every 4 hours when necessary for breakthrough pain to assess tolerability and effectiveness over the next 24 hours. Patient was encouraged to utilize the Nucynta in place of the IV hydromorphone. She may reserve IV hydromorphone for breakthrough pain not well controlled with Nucynta. 3. Further treatment recommendations will be made pending response to above
[2017-08-14] MEDS: PANTOprazole SOD 40 MG TAB PO SCH ×2 (09:29→20:52)
[2017-08-14] MEDS: SENNA 8.8 MG/5 ML UDP PO SCH ×2 (09:29→20:52)
[2017-08-14] MEDS: ENOXAPARIN 40 MG/0.4 ML SYR SQ SCH (09:30)
[2017-08-14] MEDS: TAPENTADOL HCL 50 MG TAB PO PRN ×2 (09:35→13:21)
[2017-08-14] MEDS: BOOST VANILLA PO SCH ×2 (09:35)
--- NOTE | 2017-08-14 11:32 | Gastrointestinal Consultation ---
Gastrointestinal Consultation Date of Consultation: Aug 14, 2017 Attending Physician: Chris Consulting Physician: Jeremias Reason for Consultation: bowel regimen History of Present Illness Patient is a 61 year old female admitted to [facility] through the ED for severe abdominal pain --> CT angiogram with dilated small bowel with transition consistent with partial SBO. She was evaluated by surgery, and is now s/p laparotomy and lysis of adhesions. She has had numerous abd surgeries in the past, including hemicolectomy and notes intermittent symptoms for many years. She has chronic constipation, is on narcotics for pain as an outpatient. Today, she is feeling well but notes still with difficulty moving her bowels. Tolerating PO. No nausea, vomiting. Mild abd discomfort limited to surgical incision. Last BM was yesterday, pudding consistence. No black or bloody stools. CT ANGIO 08/06/17: Small bowel obstruction with focal transition point within the mid to distal jejunum as described above. There is mild mesenteric edema. No pneumoperitoneum or pneumatosis at this time. Surgical consultation recommended. Normal caliber abdominal aorta with no evidence for dissection. Past Medical/Surgical History Medical Problems: (1) Central abdominal pain Status: Acute (2) Nausea Status: Acute (3) Small bowel obstruction Status: Acute Past Medical History: Bowel obstruction, Gastroparesis, ischemic colitis Past Surgical History: H/O left hemicolectomy History of partial colectomy S/P colon resection Family History No significant family history Social History Smoking Status: Former Smoker Drug Use: none Marital Status: Housing Status: lives with family Allergies Coded Allergies: Sulfa Antibiotics (Verified Allergy, Mild, RASH, 08/06/17) Citalopram (Verified Adverse Reaction, Unknown, rash, 08/05/17) Current Medications Home Meds and Scripts Medications Dose Route/Sig Max Daily Dose Days Date Category Dose Instructions Colace (Docusate Sodium) 100 Mg Cap 1 Cap PO QID PRN 08/05/17 Reported Ondansetron HCl (Ondansetron) 4 Mg Tab 4 Mg PO Q8 PRN 08/05/17 Reported Womens One Daily (Multiple Vitamins W/ Minerals) 1 Tab Tab 1 Tab PO DAILY 07/17/17 Reported Duloxetine HCl 60 Mg Cap 60 Mg PO HS 07/17/17 Reported Duloxetine HCl 60 Mg Cap 120 Mg PO QAM 07/17/17 Reported [place] 5MG/325MG (Acetaminophen/Hydrocodone Bitart) Tab 0.5 Tablet PO Q4H PRN 07/17/17 Reported Buprenorphine 10 Mcg/Hr Dis 10 Mcg TOP WK 07/17/17 Reported CHANGE PATCH EVERY SUNDAY Trazodone (Trazodone HCl) 100 Mg Tab 50 Mg PO AFTER SUPPER 07/17/17 Reported TAKE HALF A TABLET (50 MG) AFTER EVENING MEAL Trazodone (Trazodone HCl) 100 Mg Tab 100 Mg PO HS 07/17/17 Reported Atorvastatin Calcium (Atorvastatin) 10 Mg Tab 10 Mg PO HS 07/17/17 Reported Nortriptyline HCl 10 Mg Cap 10 Mg PO HS 07/17/17 Reported Lyrica (Pregabalin) 75 Mg Cap 150 Mg PO AMHS 09/07/14 Reported Review of Systems Constitutional: No fever, No chills Respiratory: No cough, No shortness of breath Cardiac: No chest pain, No edema Abdomen: + pain, + constipation, No nausea, No vomiting, No diarrhea Physical Exam Date Time Temp Pulse Resp B/P (MAP) Pulse Ox O2 Delivery O2 Flow Rate FiO2 08/14/17 07:45 99 Room Air 08/14/17 06:51 37.2 89 17 110/72 (85) 99 Room Air 08/14/17 04:00 37.1 98 16 150/83 (105) 100 Room Air 08/13/17 23:30 Room Air 08/13/17 22:50 37.1 91 16 128/76 (93) 97 Room Air 08/13/17 19:21 99 Room Air 08/13/17 19:05 37.4 90 20 122/78 (93) 99 Room Air 08/13/17 16:20 Room Air 08/13/17 15:27 37.2 93 16 127/71 (89) 99 Room Air General Appearance: no apparent distress Eyes: PERRL ENT: hearing grossly normal Neck: supple Respiratory/Chest: lungs clear Cardiovascular: regular rate, rhythm Abdomen: normal bowel sounds, non tender, soft Neurologic/Psych: alert, normal mood/affect, oriented x 3 Skin: normal color Impression Patient is a 61 year old female on chronic narcotics admitted to [facility] through the ED with imaging concerning for SBO, was evaluated by surgery and is s/p laparotomy, lysis of adhesions, closure internal hernia. Pt reports improvement of symptoms but notes issues with chronic constipation. Last BM was small, semi- formed, yesterday , no black/bloody stools. No nausea, vomiting. Tolerating advancing diet. No recent ABD imaging, extent of pt stool burden/ileus unknown. Plan Recommendations - KUB today for stool burden - limit inpatient/outpatient narcotics - consider fleets enemas q6h - consider relistor if symptoms persist despite enemas and narcotics are not d/c - consider outpatient follow up to establish a bowel regimen - trulance vs linzess etc GI to sign off. Please call with questions or concerns. I saw and evaluated the patient. She does have a history of chronic constipation and recently underwent a lysis of adhesions for bowel obstruction. She notes having problems with constipation over many years and is previously followed with Dr. Gutiérrez in [facility]. It appears she had a recent upper endoscopy and colonoscopy by this provider several months ago. Physical exam No obvious distress Mild abdominal distention Impression: Patient with symptoms most consistent with a postoperative ileus and narcotic ileus. As she is passing stool and flatus we could probably give a dose of Relistor today and reassess in 48 hours. Recommendations Limit narcotic use Relistor today Daily KUB Patient should follow with her regular GI provider Dr. Gutiérrez as an outpatient
--- NOTE | 2017-08-14 12:35 | DIAGNOSTIC IMAGING REPORT ---
KUB CLINICAL HISTORY: constipation, abd pain COMPARISON STUDY: No previous studies for comparison. FINDINGS: There are extensive postsurgical changes. Suture lines are visualized in left abdomen. There are anterior skin maritza present. There are mildly dilated small bowel loops measuring up to 3.4 cm in diameter. IMPRESSION: Nonspecific bowel gas pattern with mildly dilated small bowel loops measuring up to 3.4 cm in diameter. Given the history of recent surgery this may represent a postsurgical ileus. Electronically signed by: Xavier Estevez M.D. 08/14/2017 12:34 PM Dictated Date/Time: 08/14/2017 12:33 PM
[2017-08-14 14:58] VITALS: BP 109/74; PULSE 106; TEMP 37.3; O2SAT 98
[2017-08-14] MEDS ORDERED: METHYLNALTREXONE BROMIDE INJ 12 MG/0.6 ML SYR SQ SCH (18:00)
[2017-08-14] MEDS: LORAZEPAM INJ 0.5 MG in SYRINGE 0.25 ML IV PRN (21:16)
[2017-08-14 23:35] VITALS: BP 121/77; PULSE 111; TEMP 36.7; O2SAT 100
--- NOTE | 2017-08-15 06:11 | Surgery Progress Note ---
Surgery Progress Note Date of Service Aug 15, 2017. Subjective sleeping comfortably- first time I have seen this since adm- usually wide awake mult bm yest- relistor held- rec senna syrup Objective Vital Signs: Date Time Temp Pulse Resp B/P (MAP) Pulse Ox O2 Delivery O2 Flow Rate FiO2 08/14/17 23:35 36.7 111 16 121/77 (92) 100 Room Air 08/14/17 19:20 Room Air 08/14/17 15:50 Room Air 08/14/17 14:58 37.3 106 18 109/74 (86) 98 Room Air 08/14/17 07:45 99 Room Air 08/14/17 06:51 37.2 89 17 110/72 (85) 99 Room Air General Appearance: no apparent distress Respiratory/Chest: no respiratory distress Laboratory Results: Results Past 24 Hours Test 08/14/17 11:51 Range/Units Bedside Glucose 107 70-90 mg/dl Assessment & Plan 08/15/17- for pain- Nucynta po and Butrans patch (didn't use prn IV dilaudid ) Relistor if needed- hold for now. low residue diet- monitor GI function possible d/c w/ visiting nurse 1-2 days she is very anxious now that she is awake- surgically doing ok but on mult meds at home ( antidepressants etc)- need to discuss with medical team- to restart 08/14/17- cont low fiber diet, she asked for boost, d/c tpn after current bag. Stop SOAP DRIER TENDER- order prn dilaudid and pain mgt to help with po meds pt on chronic Vicodin at home as well as narcan patch. possible d/c later this week- ask GI for suggestions- 08/13/17- doing better than expected- adv diet slowly- low fiber later today, add senna syrup, cont TPN 1 more day, leave picc line stop atbx, chg to lovenox daily. work on transition to po pain meds- ask pain mgt for help 08/09/17- bringing patch from home, cont NG, link today IV atbx, TPN to begin later today- expect GI dysfunction for several days- try to mobilize 08/08/17- no acute chgs- cont IV, NG , SOAP DRIER TENDER- suspect ileus will persist may need TPN/Picc - and pain control will likely be difficult- she didn't want to talk to Dr White yest- try to mobilize 08/07/17- s/p laparotomy, lysis of adhesions, closure internal hernia pain control difficult- on [facility] pain meds- ask pain mgt to help will have ileus for days likely- NPO, try to mobilize 08/06/17- slight improvement with NG- plan for surgery today- laparotomy, lysis of adhesions, possible bowel resection 08/14/17- cont low fiber diet, she asked for boost, d/c tpn after current bag. Stop SOAP DRIER TENDER- order prn dilaudid and pain mgt to help with po meds pt on chronic Vicodin at home as well as narcan patch. possible d/c later this week- ask GI for suggestions- 08/13/17- doing better than expected- adv diet slowly- low fiber later today, add senna syrup, cont TPN 1 more day, leave picc line stop atbx, chg to lovenox daily. work on transition to po pain meds- ask pain mgt for help 08/09/17- bringing patch from home, cont NG, link today IV atbx, TPN to begin later today- expect GI dysfunction for several days- try to mobilize 08/08/17- no acute chgs- cont IV, NG , SOAP DRIER TENDER- suspect ileus will persist may need TPN/Picc - and pain control will likely be difficult- she didn't want to talk to Dr White yest- try to mobilize 08/07/17- s/p laparotomy, lysis of adhesions, closure internal hernia pain control difficult- on [facility] pain meds- ask pain mgt to help will have ileus for days likely- NPO, try to mobilize 08/06/17- slight improvement with NG- plan for surgery today- laparotomy, lysis of adhesions, possible bowel resection
--- NOTE | 2017-08-15 06:36 | Progress Note ---
Subjective Date of Service: Aug 14, 2017. Subjective Pt evaluation today including: conversation w/ patient, physical exam 61 YO FEMALE who is here for bowel obstruction due to adhesions, is s/p lysis of adhesions. Patient reports that she is moving her bowel.s And she is tolerating her diet. Patient continues to have mild to moderate abd. pain on around her incision and in her right upper and lower quadrant. Problem List Medical Problems: (1) Central abdominal pain Status: Acute (2) Nausea Status: Acute (3) Small bowel obstruction Status: Acute Review of Systems Constitutional: No fever, No chills Respiratory: No cough, No sputum Cardiac: No chest pain, No orthopnea Abdomen: No pain, No nausea Heme: No abnormal bleeding/bruising Endo: No fatigue Skin: No rash, No itch All Other Systems: Reviewed and Negative Medications Current Inpatient Medications Medications (Trade) Dose Ordered Sig/Dereck Route Start Time Stop Time Status Last Admin Dose Admin Promethazine HCl 25 mg/Sodium Chloride 51 ml @ 204 mls/hr Q6H PRN IV 08/06/17 01:30 09/05/17 01:29 Ondansetron HCl (Zofran Inj) 4 mg Q6H PRN IV 08/06/17 01:30 09/05/17 01:29 08/11/17 02:41 4 MG Lorazepam 0.5 mg/ Syringe 0.5 ml @ 0.5 mls/min Q6 PRN IV 08/06/17 01:45 09/05/17 01:44 08/14/17 21:16 0.5 MLS/MIN Promethazine HCl 12.5 mg/Sodium Chloride 50.5 ml @ 204 mls/hr Q6H PRN IV 08/06/17 04:00 09/05/17 03:59 Heparin Sodium (Porcine) (Heparin 10 Unit/ ml 5 ml Flush) 5 ml PRN PRN FLUSH 08/08/17 12:30 09/07/17 12:29 08/15/17 20:08 5 ML Buprenorphine HCl (Butrans Patch) 10 mcg We@2000 TD 08/09/17 19:20 09/08/17 19:19 08/15/17 20:11 10 MCG Calcium Carbonate (Tums Chew Tab) 500 mg Q4 PRN PO 08/11/17 08:45 09/10/17 08:44 08/11/17 11:14 500 MG Pantoprazole Sodium (Protonix Tab) 40 mg BID PO 08/12/17 21:00 09/11/17 20:59 08/15/17 21:18 40 MG Enoxaparin Sodium (Lovenox Inj) 40 mg QAM SQ 08/13/17 09:00 09/12/17 08:59 08/15/17 08:58 40 MG Senna (Senokot Syrup) 8.8 mg BID PO 08/13/17 09:00 09/12/17 08:59 08/15/17 08:58 8.8 MG Hydromorphone HCl (Dilaudid Inj) 0.5 mg Q3H PRN IV 08/14/17 06:15 08/28/17 06:14 Hydromorphone HCl (Dilaudid Inj) 1 mg Q3H PRN IV 08/14/17 06:15 08/28/17 06:14 Enteral Nutritional Formula (Boost) 1 can DAILY PO 08/14/17 09:00 09/13/17 08:59 08/15/17 08:57 1 CAN Tapentadol (Nucynta Tab) 50 mg Q4H PRN PO 08/14/17 09:15 09/13/17 09:14 08/16/17 05:40 50 MG Pregabalin (Lyrica Cap) 150 mg AMHS PO 08/15/17 09:00 09/14/17 08:59 08/15/17 21:18 150 MG Objective Vital Signs Date Time Temp Pulse Resp B/P (MAP) Pulse Ox O2 Delivery O2 Flow Rate FiO2 08/14/17 23:35 36.7 111 16 121/77 (92) 100 Room Air 08/14/17 19:20 Room Air 08/14/17 15:50 Room Air 08/14/17 14:58 37.3 106 18 109/74 (86) 98 Room Air 08/14/17 07:45 99 Room Air 08/14/17 06:51 37.2 89 17 110/72 (85) 99 Room Air Physical Exam General Appearance: WD/WN Comments: General Appearance: WD/WN, no apparent distress Eyes: normal inspection, EOMI ENT: normal ENT inspection, hearing grossly normal Neck: supple Respiratory/Chest: chest non-tender, lungs clear, normal breath sounds, no respiratory distress, no accessory muscle use Cardiovascular: regular rate, rhythm, no edema, no gallop, no JVD, no murmur Abdomen: + distended,mild tenderness in RUQ and RLQ. midline incision with dry dressing, Extremities: normal range of motion, non-tender, normal inspection, no pedal edema Neurologic/Psychiatric: property management intern II-XII nml as tested, no motor/sensory deficits, alert, normal mood/affect, oriented x 3 Skin: normal color, warm/dry, no rash Laboratory Results Last 24 Hours Test 08/14/17 11:51 Bedside Glucose 107 mg/dl Assessment and Plan 61 years old female with past medical history of ischemic colitis is status post colon resection presented to the ED with intestinal obstruction Assessment: abdominal pain secondary to below Intestinal obstruction secondary to adhesions Decrease oral intake Electrolyte imbalance fibromyalgia Hyperlipidemia Plan: abdominal pain improving, she had a bowel movement today Nasogastric tube was discontinued 3 days ago. She was started on full liquid diet 2 days ago. lIKELY WILL ADVANCE DIET TODAY s/p laparotomy, lysis of adhesions, closure internal hernia 08/06 rarely today uses [facility] ordering TPN, suggest to continue parenteral nutrition until we make sure she tolerated oral intake Pain appears to be managed by primary team. No medical issues today. will f/u in AM. Heparin for DVT prophylaxis follow up electrolytes in a.m.
[2017-08-15 07:20] VITALS: BP 116/75; PULSE 104; TEMP 37.3; O2SAT 99
[2017-08-15 07:39] VITALS: O2SAT 99
[2017-08-15] MEDS: TAPENTADOL HCL 50 MG TAB PO PRN ×4 (07:39→21:18)
[2017-08-15] MEDS: PREGABALIN 150 MG CAP PO SCH ×2 (08:57→21:18)
[2017-08-15] MEDS: PANTOprazole SOD 40 MG TAB PO SCH ×2 (08:57→21:18)
[2017-08-15] MEDS: BOOST VANILLA PO SCH ×2 (08:57)
[2017-08-15] MEDS: ENOXAPARIN 40 MG/0.4 ML SYR SQ SCH (08:58)
[2017-08-15] MEDS: SENNA 8.8 MG/5 ML UDP PO SCH ×2 (08:58→21:00)
--- NOTE | 2017-08-15 09:24 | Pain Management Progress Note ---
Pain Management Progress Note Date of Service Aug 15, 2017. Subjective Mrs. Lopez states that her abdominal pain is better controlled with the current regimen of Butrans Patch 10mcg/hr and Nucynta 50mg PO x 4 hrs PRN. She denies any side effects to the Nucynta. Patient rates her pain a 3/10 currently. She denies any nausea, vomiting, constipation, or dizziness. Case discussed with Dr. Cabrera Objective Vital Signs: Last Vital Signs Documentation Date Time Temp Pulse Resp B/P (MAP) Pulse Ox O2 Delivery O2 Flow Rate FiO2 08/15/17 07:20 37.3 104 16 116/75 (89) 99 Room Air 08/06/17 19:20 4.0 Physical Exam: GENERAL: Mrs. Lopez is thin and frail appearing. She is sitting up and eating breakfast. Mood and affect is flat. Speech and cognition is intact. ABDOMEN: Soft and nondistended. Minimal tenderness to palpation without rebound or guarding. NEURO: Cranial nerves grossly intact. AAO x 3. Laboratory Laboratory Findings 08/13/17 05:40 Red Blood Count 2.87 L, Mean Corpuscular Volume 97.2, Mean Corpuscular Hemoglobin 34.1 H, Mean Corpuscular Hemoglobin Concent 35.1, Mean Platelet Volume 9.3, Neutrophils (%) (Auto) 62.2, Lymphocytes (%) (Auto) 17.0, Monocytes (%) (Auto) 8.0, Eosinophils (%) (Auto) 10.8, Basophils (%) (Auto) 0.3, Neutrophils # (Auto) 7.62 H, Lymphocytes # (Auto) 2.09, Monocytes # (Auto) 0.98 H, Eosinophils # (Auto) 1.32 H, Basophils # (Auto) 0.04 Assessment 1. Chronic abdominal pain with history of ischemic colitis status post colon resection and recent laparotomy with lysis of adhesions 2. Chronic opioid dependency 3. History of fibromyalgia Recommendations 1. Patient reports adequate pain relief with the current regimen of Butrans patch 10mcg/hr and Nucynta 50mg PO x 4 hours PRN breakthrough pain. ' 2. Will sign off on the patient as pain is well controlled.
[2017-08-15] MEDS ORDERED: BUPRENORPHINE 10 MCG/HR TDSY TD SCH ×2 (10:00)
[2017-08-15] MEDS ORDERED: DULOXETINE HCL 60 MG CAP PO ONE (13:30)
[2017-08-15] MEDS ORDERED: TAPE50TA PO (14:18)
--- NOTE | 2017-08-15 14:19 | Discharge Instructions ---
Discharge Instructions Date of Service Aug 15, 2017. Admission Reason for Admission: Bowel Obstruction Discharge Discharge Diagnosis / Problem: bowel obstruction Discharge Goals Goal(s): Decrease discomfort, Improve function, Improve disease control Activity Recommendations Activity Limitations: as noted below Lifting Limitations: no more than 10 pounds Exercise/Sports Limitations: until after follow-up appointment May Resume Sexual Activity: when tolerated Shower/Bathe: tomorrow Driving or Machine Use: 1 week SPECIAL CARE INSTRUCTIONS: * Cover incisions and change daily for comfort/drainage. may use Senokot and/or Miralax as directed on the package * May use ibuprofen for pain as tolerated. * Expect some swelling and bruising. Call your doctor if: * Temperature above 101 degrees * Pain not relieved by pain medicine ordered * There is increased drainage or redness from any incision * You have any unanswered questions or concerns [phone]. FOLLOW UP VISIT: If not already scheduled, please call the office for a follow-up visit. for next week- staple removal we will arrange followup with Jarrett SCHWARTZ to follow you OFFICE PHONE NUMBER: Dr. Perez Office . Instructions / Follow-Up Instructions / Follow-Up SPECIAL CARE INSTRUCTIONS: * Cover incisions and change daily for comfort/drainage. * May use Senokot and / or miralax daily as directed on the package may also use Mineral oil- 1 tablespoon 2-3 times per week- can try to mix in orange juice or other * May use ibuprofen for pain as tolerated. * Expect some swelling and bruising. Call your doctor if: * Temperature above 101 degrees * Pain not relieved by pain medicine ordered * There is increased drainage or redness from any incision * You have any unanswered questions or concerns [phone]. FOLLOW UP VISIT: If not already scheduled, please call the office for a follow-up visit. for next week- staple removal we will arrange follow up with Jarrett SCHWARTZ to follow you OFFICE PHONE NUMBER: Dr. Perez Office Current Hospital Diet Patient's current hospital diet: Low Fiber Diet Discharge Diet Recommended Diet: Low Fiber Diet Procedures Procedures Performed: laparotomy, lysis of adhesions, closure of internal hernia Pending Studies Studies pending at discharge: no Laboratory Results Lipid Panel Test 08/10/17 05:28 Range/Units Triglycerides Level 123 0-150 mg/dl Medical Emergencies . Who to Call and When: Medical Emergencies: If at any time you feel your situation is an emergency, please call 911 immediately. . Non-Emergent Contact Non-Emergency issues call your: Primary Care Provider, Surgeon . "Provider Documentation" section prepared by Nirmal Perez. . VTE Core Measure Inpt VTE Proph given/why not?: Enoxaparin (Lovenox)SQ, SCD's
[2017-08-15 15:17] VITALS: BP 115/68; PULSE 110; TEMP 37.3; O2SAT 97
[2017-08-15] MEDS: BUPRENORPHINE 10 MCG/HR TDSY TD SCH (20:11)
[2017-08-15] MEDS: NYSTATIN SUSP 500,000 U/5 ML UDC PO SCH (21:00)
[2017-08-15] MEDS ORDERED: TRAZODONE HCL 50 MG TAB PO SCH (21:00)
--- NOTE | 2017-08-15 21:24 | DIAGNOSTIC IMAGING REPORT ---
R VENOUS DOPPLER UPR EXT UNIL HISTORY: 61 years-old Female Possible DVT acute swelling of the right upper extremity with concern for deep venous thrombosis COMPARISON: None available TECHNIQUE: Multiple real-time sonographic images of the right upper extremity deep venous system were obtained assessing grayscale appearance, color and spectral flow FINDINGS: Study is limited secondary to patient falling asleep and moving the upper extremity throughout the exam. Telephone Betting Clerk was unable to evaluate the mid upper arm secondary to PICC bandage. There is normal flow, compressibility, phasicity and augmentation of the right upper extremity deep venous system. PICC is noted within the right axillary, subclavian and basilic veins. IMPRESSION: No sonographic evidence of deep venous thrombosis. The above report was generated using voice recognition software. It may contain grammatical, syntax or spelling errors. Electronically signed by: Kolby Sheppard M.D. 08/15/2017 9:22 PM Dictated Date/Time: 08/15/2017 9:18 PM
[2017-08-15 22:45] VITALS: BP 133/77; PULSE 105; TEMP 36.3; O2SAT 99
[2017-08-16] MEDS: TAPENTADOL HCL 50 MG TAB PO PRN ×2 (05:40→12:08)
--- NOTE | 2017-08-16 06:36 | Progress Note ---
Subjective Date of Service: Aug 15, 2017. Subjective Pt evaluation today including: conversation w/ patient, physical exam, chart review, lab review, review of studies I was called today by surgical team to review medications as patient appears to be more anxious today. Patient confirms that she has been more anxious and states that she has been compliant with her home meds. Patient though is interested in perhaps decreasing her medicine as multiple providers including the pharmacy has stated that she is taking high amounts of her anxiety medications. Problem List Medical Problems: (1) Central abdominal pain Status: Acute (2) Nausea Status: Acute (3) Small bowel obstruction Status: Acute Review of Systems Constitutional: No fever, No chills ENT: No unusual epistaxis Respiratory: No cough, No sputum Cardiac: No chest pain, No orthopnea Abdomen: + pain, + nausea, No diarrhea Musculoskeletal: No joint pain Neurologic: No memory loss, No paralysis Heme: No abnormal bleeding/bruising Endo: No fatigue Skin: No rash, No itch All Other Systems: Reviewed and Negative Medications Current Inpatient Medications Medications (Trade) Dose Ordered Sig/Dereck Route Start Time Stop Time Status Last Admin Dose Admin Promethazine HCl 25 mg/Sodium Chloride 51 ml @ 204 mls/hr Q6H PRN IV 08/06/17 01:30 09/05/17 01:29 Ondansetron HCl (Zofran Inj) 4 mg Q6H PRN IV 08/06/17 01:30 09/05/17 01:29 08/11/17 02:41 4 MG Lorazepam 0.5 mg/ Syringe 0.5 ml @ 0.5 mls/min Q6 PRN IV 08/06/17 01:45 09/05/17 01:44 08/14/17 21:16 0.5 MLS/MIN Promethazine HCl 12.5 mg/Sodium Chloride 50.5 ml @ 204 mls/hr Q6H PRN IV 08/06/17 04:00 09/05/17 03:59 Heparin Sodium (Porcine) (Heparin 10 Unit/ ml 5 ml Flush) 5 ml PRN PRN FLUSH 08/08/17 12:30 09/07/17 12:29 08/15/17 20:08 5 ML Buprenorphine HCl (Butrans Patch) 10 mcg We@2000 TD 08/09/17 19:20 09/08/17 19:19 08/15/17 20:11 10 MCG Calcium Carbonate (Tums Chew Tab) 500 mg Q4 PRN PO 08/11/17 08:45 09/10/17 08:44 08/11/17 11:14 500 MG Pantoprazole Sodium (Protonix Tab) 40 mg BID PO 08/12/17 21:00 09/11/17 20:59 08/16/17 08:35 40 MG Enoxaparin Sodium (Lovenox Inj) 40 mg QAM SQ 08/13/17 09:00 09/12/17 08:59 08/15/17 08:58 40 MG Senna (Senokot Syrup) 8.8 mg BID PO 08/13/17 09:00 09/12/17 08:59 08/16/17 08:36 8.8 MG Hydromorphone HCl (Dilaudid Inj) 0.5 mg Q3H PRN IV 08/14/17 06:15 08/28/17 06:14 Hydromorphone HCl (Dilaudid Inj) 1 mg Q3H PRN IV 08/14/17 06:15 08/28/17 06:14 Enteral Nutritional Formula (Boost) 1 can DAILY PO 08/14/17 09:00 09/13/17 08:59 08/15/17 08:57 1 CAN Tapentadol (Nucynta Tab) 50 mg Q4H PRN PO 08/14/17 09:15 09/13/17 09:14 08/16/17 05:40 50 MG Pregabalin (Lyrica Cap) 150 mg AMHS PO 08/15/17 09:00 09/14/17 08:59 08/16/17 08:34 150 MG Duloxetine HCl (Cymbalta Cap) 60 mg QAM PO 08/16/17 09:00 09/15/17 08:59 08/16/17 08:33 60 MG Trazodone HCl (Desyrel Tab) 50 mg HS PO 08/15/17 21:00 09/14/17 20:59 08/15/17 21:18 50 MG Nystatin (Mycostatin Susp) 5 ml QID PO 08/15/17 21:00 08/25/17 20:59 Objective Vital Signs Date Time Temp Pulse Resp B/P (MAP) Pulse Ox O2 Delivery O2 Flow Rate FiO2 08/15/17 23:15 Room Air 08/15/17 22:45 36.3 105 16 133/77 (95) 99 Room Air 08/15/17 19:15 Room Air 08/15/17 15:30 Room Air 08/15/17 15:17 37.3 110 18 115/68 (84) 97 Room Air 08/15/17 07:39 99 Room Air 08/15/17 07:20 37.3 104 16 116/75 (89) 99 Room Air Physical Exam Comments: General Appearance: WD/WN, no apparent distress Eyes: normal inspection, EOMI ENT: normal ENT inspection, hearing grossly normal Neck: supple Respiratory/Chest: chest non-tender, lungs clear, normal breath sounds, no respiratory distress, no accessory muscle use Cardiovascular: regular rate, rhythm, no edema, no gallop, no JVD, no murmur Abdomen: + distended,mild tenderness in RUQ and RLQ. 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 Diet was advanced today from a full liquid diet and she appears to be tolerating it. 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 cymbalta is now 60mg, trazodone will be 50mg daily, and will continue pregabalin. nortryptiline will be stopped. Heparin for DVT prophylaxis follow up electrolytes in a.m. Oral mouth pain Patient suspects anderson. will start nystatin swish and swallow for a short course.
--- NOTE | 2017-08-16 06:43 | DISCHARGE SUMMARY ---
PRINCIPAL DIAGNOSIS: Small-bowel obstruction with severe adhesions and internal hernia. PROCEDURES: The patient underwent urgent laparotomy with extensive lysis of adhesions and repair of internal hernia. She also had a PICC line placed. It also appears she went through some withdrawal from opioid and other prescription medication usage from home. HISTORY OF PRESENT ILLNESS: The patient is a 61-year-old female presenting to the Emergency Room emergently on 08/05/2017 with severe abdominal pain and evidence of a small-bowel obstruction. She had had prior colectomy and other intraabdominal operations causing significant suspected adhesions. HOSPITAL COURSE: The patient was admitted to the hospital in early hours of the morning 08/06/2017 and taken to the operating room later that morning where she underwent laparotomy with extensive lysis of adhesions and reduction of an internal hernia which was then repaired. Postoperatively, she had an extended ileus requiring NG tube, decompression and also TPN with PICC line placement. She also experienced what appeared to be withdrawal symptoms of severe agitation and diaphoresis. We did have pain therapy see her and help us with her postop management. She gradually progressed in her GI function. The TPN was stopped. We did maintain the PICC line. I did feel that she would need a postoperative followup with the pain clinic and also possibly followup with GI medicine who did see her in the hospital. She will also be followed by the surgical clinic within 1-2 weeks. As far as postoperative pain control, she is being sent home on Nucynta 50 mg q. 4 hours p.r.n. and also she uses a Butrans patch weekly. Pain management did feel we can continue that. BERNARDINO
[2017-08-16 07:47] VITALS: BP 109/70; PULSE 104; TEMP 37.1; O2SAT 98
[2017-08-16 08:07] VITALS: BP 109/70; PULSE 104; TEMP 37.1; O2SAT 98
[2017-08-16] MEDS: BOOST VANILLA PO SCH ×2 (08:31)
[2017-08-16] MEDS: PREGABALIN 150 MG CAP PO SCH (08:34)
[2017-08-16] MEDS: NYSTATIN SUSP 500,000 U/5 ML UDC PO SCH ×2 (08:35→13:00)
[2017-08-16] MEDS: PANTOprazole SOD 40 MG TAB PO SCH (08:35)
[2017-08-16] MEDS: SENNA 8.8 MG/5 ML UDP PO SCH (08:36)
[2017-08-16] MEDS ORDERED: DULOXETINE HCL 60 MG CAP PO SCH (09:00)
[2017-08-16] MEDS ORDERED: NYSS5 PO (09:49)
--- NOTE | 2017-08-16 09:52 | Progress Note ---
Subjective Date of Service: Aug 16, 2017. Subjective Patient reports feeling well. Continues to agree with current medication changes to her psych medicine. Problem List Medical Problems: (1) Central abdominal pain Status: Acute (2) Nausea Status: Acute (3) Small bowel obstruction Status: Acute Review of Systems Constitutional: No fever, No chills Respiratory: No cough, No sputum Abdomen: No pain, No nausea Neurologic: No memory loss, No paralysis Heme: No abnormal bleeding/bruising Endo: No fatigue Skin: No rash, No itch Objective Vital Signs Date Time Temp Pulse Resp B/P (MAP) Pulse Ox O2 Delivery O2 Flow Rate FiO2 08/16/17 08:07 37.1 104 18 98 Room Air 08/16/17 07:47 37.1 104 18 109/70 (83) 98 Room Air 08/16/17 07:05 Room Air 08/15/17 23:15 Room Air 08/15/17 22:45 36.3 105 16 133/77 (95) 99 Room Air 08/15/17 19:15 Room Air 08/15/17 15:30 Room Air 08/15/17 15:17 37.3 110 18 115/68 (84) 97 Room Air Physical Exam Comments: General Appearance: WD/WN Comments: General Appearance: WD/WN, no apparent distress Eyes: normal inspection, EOMI ENT: normal ENT inspection, hearing grossly normal Neck: supple Respiratory/Chest: chest non-tender, lungs clear, normal breath sounds, no respiratory distress, no accessory muscle use Cardiovascular: regular rate, rhythm, no edema, no gallop, no JVD, no murmur Abdomen: + distended,mild tenderness in RUQ and RLQ. 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 Diet was advanced today from a full liquid diet and she appears to be tolerating it. s/p laparotomy, lysis of adhesions, closure internal hernia 08/06 OFF MANAGER MINING OFF TPN will continue with current management after decreasing Cymbalta and trazodone and stopping Nortriptyline. Heparin for DVT prophylaxis follow up electrolytes in a.m. Oral mouth pain Patient suspects anderson. will continue with short course of nystatin.
[2017-08-16 09:57] VITALS: O2SAT 98
[2017-08-16] MEDS: ENOXAPARIN 40 MG/0.4 ML SYR SQ SCH (10:10)
[2017-08-16 11:37] VITALS: BP 114/73; PULSE 101; TEMP 37.5; O2SAT 98
[2017-08-22] MEDS ORDERED: SENN-61 PO (13:01)
[2017-08-22] MEDS ORDERED: nucynta PO (13:01)
== END 2017-08-16 13:30 | disposition home health service (06) | DRG 336 ==
LOC: C.EDB 22:21 → C.MSN 08-06 01:33 → ENRESERV 08-06 01:51
PROVIDERS: ADMIT Surgery; ATTEND Surgery
PROC: 0WQF0ZZ Repair Abdominal Wall, Open Approach (ICD-10-PCS; principal; 2017-08-06 08:00)
PROC: 0DN80ZZ Release Small Intestine, Open Approach (ICD-10-PCS; principal; 2017-08-06 08:00)
PROC: 02HV33Z Insertion of Infusion Device into Superior Vena Cava, Percutaneous Approach (ICD-10-PCS; 2017-08-08)
DX: K56.50 Intestinal adhesions [bands], unspecified as to partial versus complete obstruction (principal); K46.0 Unspecified abdominal hernia with obstruction, without gangrene; F11.23 Opioid dependence with withdrawal; K91.89 Other postprocedural complications and disorders of digestive system; K56.7 Ileus, unspecified; K66.8 Other specified disorders of peritoneum; Z88.2 Allergy status to sulfonamides; Z87.891 Personal history of nicotine dependence; K59.09 Other constipation; F41.9 Anxiety disorder, unspecified; G89.29 Other chronic pain; E78.5 Hyperlipidemia, unspecified; E83.42 Hypomagnesemia; M79.7 Fibromyalgia

== ENCOUNTER → 2017-08-30 | Outpatient (CLI) | payer OTHER ==
[~2017-08-30] MED LIST changes: -CYM60 PO; +DOCU-94 PO; -HYDR-5688 PO; -NORT10CA4 PO; +NYSS5 PO; +ONDA4TAB9 PO; +SENN-61 PO; -[UNRECOGNIZED DRUG - CODE]; +nucynta PO
[2017-08-30 17:47] LABS: HEMATOCRIT 36.7 % (37-47); MEAN CELL VOLUME 101.7 fL (80-100); MEAN CORPUSCULAR HEMOGLOBIN 32.7 pg (25-34); MEAN CORPUSCULAR HGB CONC 32.2 g/dl (32-36); MEAN PLATELET VOLUME 9.8 fL (7.4-10.4); PLATELET COUNT 320 K/uL (130-400); RED BLOOD COUNT 3.61 M/uL (4.2-5.4); WHITE BLOOD COUNT 6.55 K/uL (4.8-10.8)
[2017-08-30 18:04] LABS: ALT/SGPT 18 U/L (12-78); BLOOD UREA NITROGEN 16 mg/dl (7-18); BUN/CREATININE RATIO 21.8 (10-20); CALCIUM 9.2 mg/dl (8.5-10.1); CARBON DIOXIDE 31 mmol/L (21-32); CHLORIDE 102 mmol/L (98-107); CREATININE 0.74 mg/dl (0.60-1.20); GLUCOSE 71 mg/dl (70-99); POTASSIUM 3.8 mmol/L (3.5-5.1); SODIUM 139 mmol/L (136-145)
[2017-08-30 18:15] LABS: ALKALINE PHOSPHATASE 114 U/L (45-117); AST/SGOT 16 U/L (15-37)
== END | disposition home or self-care (01) ==
LOC: C.LABPBG 15:38
PROVIDERS: ATTEND Internal Medicine
DX: R10.84 Generalized abdominal pain (principal); R00.0 Tachycardia, unspecified; R63.4 Abnormal weight loss